=== PATIENT | female | born 1940 | race Caucasian/White ===

== ENCOUNTER 2017-06-17 04:49 | Inpatient (IN) | payer MEDICARE ==
[2017-06-17] MEDS ORDERED: IPRATROPIUM/ALBUTEROL 0.5-2.5 MG/3 ML AMPUL NEB ONE ×2 (04:58→05:27)
[2017-06-17] MEDS ORDERED: METHYLPREDNISOLONE INJ 125 MG/2 ML SDV IV ONE (04:58)
[2017-06-17] MEDS ORDERED: NORMAL SALINE 1000 ML 1,000 ML IV ONE (05:00)
--- NOTE | 2017-06-17 05:03 | ER Document Report ---
ED Respiratory Problem - General Stated Complaint: SHORTNESS OF BREATH Time Seen by Provider: 06/17/17 04:57 Notes: Patient is a 77-year-old female that comes from home for chief complaint of shortness of breath and productive cough over the past day and a half. She denies chest pain, she is unsure of fever. She states she is using her home nebulizer but it is not helping. She is taking Azithromycin and prednisone from her primary provider. Past medical history of asthma, hypertension, hyperlipidemia, type 2 diabetes on oral medication. Has not smoked since she was a teenager. TRAVEL OUTSIDE OF THE [place] IN LAST 30 DAYS: No - Related Data Allergies/Adverse Reactions: sulfamethoxazole [From Bactrim] Allergy (Severe, Verified 01/09/16 14:51) rash, "mad itch" trimethoprim [From Bactrim] Allergy (Severe, Verified 01/09/16 14:51) rash, "mad itch" Past Medical History - General Information source: Patient - Social History Smoking Status: Former Smoker Frequency of alcohol use: None Drug Abuse: None Lives with: Family Family History: Malignancy - mother - Past Medical History Cardiac Medical History: Reports: Hx Hypercholesterolemia - meds x 10 years, Hx Hypertension - meds x 50 years Denies: Hx Atrial Fibrillation, Hx Congestive Heart Failure, Hx Coronary Artery Disease, Hx Heart Attack, Hx Peripheral Vascular Disease, Hx Pulmonary Embolism, Hx Heart Murmur Pulmonary Medical History: Reports: Hx Asthma, Hx Pneumonia - no hospitalization , Hx Sleep Apnea - Dx'ed approx 5 years ago, does NOT use CPAP Denies: Hx Bronchitis, Hx COPD, Hx Respiratory Failure, Hx Tuberculosis Neurological Medical History: Denies: Hx Seizures Endocrine Medical History: Reports: Hx Diabetes Mellitus Type 2, Hx Hypothyroidism - meds since age 13 years old (3). Denies: Hx Diabetes Mellitus Type 1, Hx Graves' Disease, Hx Hyperthyroidism Renal/ Medical History: Denies: Hx End Stage Renal Disease, Hx Kidney Stones, Hx Ovarian Cysts, Hx Peritoneal Dialysis, Hx Pelvic Inflammatory Disease Malignancy Medical History: Denies: Hx Breast Cancer, Hx Cervical Cancer, Hx Leukemia, Hx Lung Cancer, Hx Ovarian Cancer GI Medical History: Denies: Hx Crohn's Disease, Hx Gastroesophageal Reflux Disease, Hx Hiatal Hernia, Hx Irritable Bowel, Hx Liver Failure, Hx Ulcer Musculoskeltal Medical History: Reports Hx Arthritis, Denies Hx Fibromyalgia, Denies Hx Muscular Dystrophy Traumatic Medical History: Reports: Hx Fractures - RT elbow & RT arm ? ulna vs radius, denies surgery Infectious Medical History: Denies: Hx HIV Past Surgical History: Reports: Hx Section - 1977, Hx Cholecystectomy - lap 2013, Hx Orthopedic Surgery - bilat knee replacement, Hx Thyroid Surgery. Denies: Hx Appendectomy, Hx Bowel Surgery, Hx Colostomy, Hx Coronary Artery Bypass Graft, Hx Gastric Bypass Surgery, Hx Herniorrhaphy, Hx Hysterectomy, Hx Mastectomy, Hx Pacemaker, Hx Tonsillectomy, Hx Tubal Ligation - Immunizations Hx Diphtheria, Pertussis, Tetanus Vaccination: Yes - 2001 Hx Pneumococcal Vaccination: 11/23/11 Review of Systems - Review of Systems Constitutional: See HPI EENT: No symptoms reported Cardiovascular: No symptoms reported Respiratory: See HPI Gastrointestinal: No symptoms reported Genitourinary: No symptoms reported Female Genitourinary: No symptoms reported Musculoskeletal: No symptoms reported Skin: No symptoms reported Hematologic/Lymphatic: No symptoms reported Neurological/Psychological: No symptoms reported Physical Exam - Vital signs Vitals: Pulse Resp BP Pulse Ox 135 H 28 H 181/111 H 91 L 06/17/17 04:58 06/17/17 04:58 06/17/17 04:58 06/17/17 04:58 Interpretation: Normal - General General appearance: Alert, Anxious In distress: Mild - regular congested cough and mild tachypnea - HEENT Head: Normocephalic, Atraumatic Eyes: Normal Pupils: PERRL - Respiratory Respiratory status: Tachypnea. No: Labored Breath sounds: Decreased air movement, Nonproductive cough, Rhonchi, Wheezing Chest palpation: Normal - Cardiovascular Rhythm: Irregularly irregular, Tachycardia Heart sounds: Normal auscultation, S1 appreciated, S2 appreciated Murmur: No - Abdominal Inspection: Normal Distension: No distension Bowel sounds: Normal Tenderness: Nontender. No: Tender, Guarding Organomegaly: No organomegaly - Back Back: Normal, Nontender - Extremities General upper extremity: Normal inspection, Nontender, Normal strength, Normal temperature General lower extremity: Normal inspection, Nontender, Normal strength, Normal temperature. No: Edema - Neurological Neuro grossly intact: Yes Cognition: Normal Orientation: AAOx4 [place] Coma Scale Eye Opening: Spontaneous Raymond Coma Scale Verbal: Oriented [place] Coma Scale Motor: Obeys Commands Raymond Coma Scale Total: 15 Speech: Normal Cranial nerves: Normal Cerebellar coordination: Normal Motor strength normal: LUE, RUE, LLE, RLE Additional motor exam normals: Equal fine sander Sensory: Normal - Psychological Associated symptoms: Normal affect, Normal mood - Skin Skin Temperature: Warm Skin Moisture: Dry Skin Color: Normal Course - Re-evaluation Re-evalutation: On initial examination patient with frequent congested cough, mild expiratory wheezes, mild tachypnea, tachycardia with irregular rate. EKG showing atrial fibrillation at rate of 113. Pulse ox 91% on room air. Patient does not recall a history of atrial fibrillation, denies any anticoagulation. Patient improving significantly after DuoNeb's, Solu-Medrol. Magnesium found to be very low at 1.2, giving magnesium for both breathing and supplementation. Patient very hypertensive, given her home medications, patient occasionally having atrial fibrillation with momentary rapid ventricular response, given Cardizem 15 mg bolus. This was discussed with Dr. Wood. Patient was also given aspirin. Will discuss for admission. 06/17/17 07:[address] King, patient will be admitted to [facility]. - Vital Signs Vital signs: Temp Pulse Resp BP Pulse Ox 97.9 F 127 H 20 203/128 H 91 L 06/17/17 05:16 06/17/17 05:16 06/17/17 06:36 06/17/17 06:36 06/17/17 06:36 - Laboratory Result Diagrams: 06/17/17 05:16 06/17/17 05:16 Laboratory results interpreted by me: 06/17/17 06/17/17 06/17/17 05:16 05:16 05:16 RDW 14.5 H Monocytes % 13.4 H VBG pH 7.46 H Glucose 149 H Magnesium 1.2 L* Direct Bilirubin 0.5 H Total Protein 8.7 H Discharge - Discharge Clinical Impression: Exacerbation of asthma, New onset atrial fibrillation, Shortness of breath Condition: Stable Disposition: ADMITTED INPATIENT Admitting Provider: Hospitalist Unit Admitted: [facility]
[2017-06-17 05:31] LABS: ABSOLUTE LYMPHOCYTES (AUTO) 1.5 10^3/uL (0.5-4.7); ABSOLUTE MONOCYTES (AUTO) 1.3 10^3/uL (0.1-1.4); ABSOLUTE NEUT (AUTO) 6.8 10^3/uL (1.7-8.2); BASOPHILS % (AUTO) 0.5 % (0-2); EOSINOPHILS % (AUTO) 0.1 % (0-6); HEMATOCRIT 41.4 % (36.0-47.0); HEMOGLOBIN 13.7 g/dL (12.0-15.5); HGB HCT DIFFERENCE -0.3; LYMPHOCYTES % (AUTO) 15.5 % (13-45); MEAN CORPUSCULAR HEMOGLOBIN 30.5 pg (27.0-33.4); MEAN CORPUSCULAR VOLUME 92 fl (80-97); MONOCYTES % (AUTO) 13.4 % (3-13); RED BLOOD COUNT 4.49 10^6/uL (3.72-5.28); RED CELL DISTRIBUTION WIDTH 14.5 % (11.5-14.0); SEGMENTED NEUTROPHILS % (AUTO) 70.5 % (42-78); WHITE BLOOD COUNT 9.6 10^3/uL (4.0-10.5)
[2017-06-17 05:32] LABS: VENOUS BLOOD BASE EXCESS 2.8 mmol/L; VENOUS BLOOD HCO3 26.6 mmol/L (20-32); VENOUS BLOOD PCO2 38.3 mmHg (35-63); VENOUS BLOOD PH 7.46 (7.30-7.42)
[2017-06-17 05:54] LABS: ALANINE AMINOTRANSFERASE 28 U/L (9-52); ALBUMIN 4.7 g/dL (3.5-5.0); ALKALINE PHOSPHATASE 80 U/L (38-126); ANION GAP 16 (5-19); ASPARTATE AMINO TRANSFERASE 36 U/L (14-36); BILIRUBIN,DIRECT 0.5 mg/dL (0.0-0.4); BILIRUBIN,TOTAL 0.7 mg/dL (0.2-1.3); BLOOD UREA NITROGEN 15 mg/dL (7-20); CALCIUM 9.8 mg/dL (8.4-10.2); CARBON DIOXIDE 27 mmol/L (22-30); CHLORIDE 101 mmol/L (98-107); CREATINE KINASE 103 U/L (30-135); CREATININE RESULT 0.72 mg/dL (0.52-1.25); GLUCOSE 149 mg/dL (75-110); POTASSIUM 3.9 mmol/L (3.6-5.0); SODIUM 144.4 mmol/L (137-145); TOTAL PROTEIN 8.7 g/dL (6.3-8.2)
[2017-06-17] MEDS ORDERED: LISINOPRIL 10 MG TABLET PO ONE (06:04)
[2017-06-17] MEDS ORDERED: CARVEDILOL 12.5 MG TABLET PO ONE (06:04)
[2017-06-17 06:05] LABS: CREATINE KINASE MB 2.06 ng/mL (<4.55); TROPONIN I 0.021 ng/mL
--- NOTE | 2017-06-17 06:05 | RADIOLOGY REPORT (SQ) ---
EXAM DESCRIPTION: CHEST SINGLE VIEW COMPLETED DATE/TIME: 06/17/2017 5:44 am REASON FOR STUDY: cough, shortness of breath COMPARISON: 11/30/2015. EXAM PARAMETERS: NUMBER OF VIEWS: One view. TECHNIQUE: Single frontal radiographic view of the chest acquired. RADIATION DOSE: NA LIMITATIONS: None. FINDINGS: LUNGS AND PLEURA: No opacities, masses or pneumothorax. No pleural effusion. MEDIASTINUM AND HILAR STRUCTURES: No masses. Contour normal. HEART AND VASCULAR STRUCTURES: Heart normal in size. Normal vasculature. BONES: Moderate osteoarthritis of bilateral glenohumeral joints. Moderate deformity of the left tuan ral head. HARDWARE: None in the chest. OTHER: No other significant finding. IMPRESSION: No acute cardiopulmonary findings. TECHNICAL DOCUMENTATION: JOB ID: [id number]
[2017-06-17 06:10] LABS: MAGNESIUM 1.2 mg/dL (1.6-2.3)
[2017-06-17] MEDS ORDERED: MAGNESIUM SULFATE/D5W 100 ML IV PRN (06:10)
[2017-06-17] MEDS ORDERED: ASPIRIN 81 MG TABLET, CHEWABLE PO ONE (06:41)
[2017-06-17] MEDS ORDERED: DILTIAZEM HCL INJ 25 MG/5 ML VIAL IV ONE (06:41)
[2017-06-17] MEDS: LEVALBUTEROL HCL NEB 0.63 MG/3 ML AMPUL NEB PRN ×2 (09:13→15:40)
[2017-06-17] MEDS ORDERED: DEXTROSE 40% GEL 15 GM TUBE PO PRN ×2 (09:22)
[2017-06-17] MEDS ORDERED: GLUCAGON,HUMAN RECOMB 1 MG INJ IM PRN (09:22)
[2017-06-17] MEDS ORDERED: DEXTROSE 50%-WATER 25 GM/50 ML DISP.SYRIN IV PRN ×2 (09:22)
[2017-06-17] MEDS ORDERED: (PENDING PHARMACY ID) (Ondansetron Hcl [Zofran 4 Mg Tablet] 4 MG) PO PRN (09:23)
[2017-06-17] MEDS ORDERED: ONDANSETRON 4 MG TAB.RAPDIS PO PRN (09:35)
--- NOTE | 2017-06-17 10:24 | HISTORY AND PHYSICAL E ---
History and Physical NAME: JASMIN CONWAY : 1940 AGE: 77Y ADMITTED: 06/17/2017 ROOM: ED02 PRIMARY CARE PROVIDER: Sweta Sellers. CHIEF COMPLAINT: Shortness of breath. HISTORY OF PRESENT ILLNESS: The patient is a 77-year-old female with a past medical history of diabetes mellitus type 2. The patient presented to the emergency department with a chief complaint of shortness of breath. According to the patient, her symptoms have been gradually increasing over the week to include wheezing and shortness of breath. The patient contacted her primary care provider's office and instructions to the patient were to come to the emergency department for evaluation. Upon presentation to the emergency department the patient was found to have a magnesium of 1.2. She was noted to be tachypneic with a heart rate of 28, oxygen saturations of 89% and a heart rate of 135 and EKG rhythm strip suggestive of atrial fibrillation. The patient's magnesium was replaced and the patient's heart rate improved with a bolus of saline. The patient was also given 1 IV dose of Cardizem; however, due to the patient's wheezing, she received a total of 6 mL of DuoNeb as well as Solu-Medrol. Her magnesium was replaced and she was referred to the hospitalist for admission and management. Upon further questioning of the patient, she states she has had an irregular heartbeat in the past. The patient states that the words atrial fibrillation may ring a block. She has seen 2 cardi[place] Dr. Barraza and Dr. Harrison; however, she says she has not been seen by them in years. The patient denies being on blood thinners or any medications for her irregular heartbeat. PAST MEDICAL HISTORY: 1. Diabetes mellitus type 2. 2. Obesity with a BMI of 38. 3. Asthma. 4. Hypothyroidism. 5. B12 and iron deficiency anemia. PAST SURGICAL HISTORY: 1. Bilateral knee replacement. 2. Right hip replacement. 3. Cholecystectomy. 4. . 5. Goiter removal. ALLERGIES: BACTRIM. HOME MEDICATIONS: 1. Pro-Air 2 puffs inhalation q.4 h. p.r.n. 2. Coreg 12.5 mg p.o. q.12 h. 3. Vitamin B12 subcutaneous injections every 4 weeks. 4. Iron 325 mg p.o. daily. 5. DuoNeb 1 neb q.6 h. p.r.n. 6. Synthroid 200 mcg p.o. daily. 7. Lisinopril 10 mg p.o. daily. 8. Ativan 0.5 mg p.o. q. hour of sleep. 9. Glucophage 1000 mg p.o. b.i.d. 10. Zofran 4 mg p.o. q.4 h. p.r.n. 11. Diprivan 5 mg p.o. q. hour of sleep. 12. Prednisone 10 mg p.o. daily. 13. Ultram 50 mg p.o. q.6 h. p.r.n. SOCIAL HISTORY: The patient currently resides at home. She is . The patient's surrogate decision maker is her daughter, Scarlett Conway, who can be reached at [phone]. The patient does reside with this daughter. The patient denies any significant history of tobacco use, stating that she smoked some as a teenager but was never a habitual smoker. The patient denies any alcohol abuse or illicit drug use. FAMILY MEDICAL HISTORY: The patient's mother is from some sort of heart problem. The patient's father is of lung cancer. The patient does have a brother who has heart problems. The patient has 1 daughter with rheumatoid arthritis and her youngest daughter has battled breast cancer. REVIEW OF SYSTEMS: CONSTITUTIONAL: The patient denies any fevers, dizziness or loss of appetite. Does admit to chills and weakness. INTEGUMENTARY: The patient denies any diaphoresis, rash, or bruising or itching. HEENT: Denies any vision or hearing loss, nasal drainage, sore throat, or headache. CARDIOVASCULAR: Denies any chest pain, edema, or heart palpitations. Does admit to persistent shortness of breath. RESPIRATORY: Denies any cough or sputum production, no hemoptysis. GASTROINTESTINAL: Denies any nausea or vomiting but does admit to dry heaves. No diarrhea, abdominal pain, bloating, hematemesis, constipation, melena, hematochezia. GENITOURINARY: Denies any hematuria, pyuria or dysuria. MUSCULOSKELETAL: Denies any acute or chronic joint pains. NEUROLOGIC: No seizures, tremors or loss of consciousness. HEMATOLOGICAL: Denies any adelfo bleeding or easy bruising. ENDOCRINE: Denies any recent weight changes or abnormal glucoses. PSYCHIATRIC: Denies suicidal or homicidal ideation. The rest of the review of the other organ systems is negative. PHYSICAL EXAMINATION: GENERAL: On examination, the patient is a well-developed, obese, 77-year-old female who is awake, alert and oriented to person, place, time and situation. She is verbal and conversational, ambulatory and does not appear to be in any acute distress. VITAL SIGNS: Temperature 97.9, pulse 95, respirations 17, blood pressure 157/95, oxygen saturation is 93% on 2 L nasal cannula. SKIN: Warm and dry. No rash. She is not diaphoretic. HEENT: Pupils are equal, round, and reactive to light and accommodation. Conjunctivae is pink. There are no mouth lesions. Sclerae are not icteric. Tongue is midline. NECK: Supple. No JVD. No palpable lymphadenopathy or thyromegaly. CARDIOVASCULAR: Heart is irregularly irregular. There is no murmur or rub. CHEST: The patient does have expiratory wheezes noted throughout both lung lopez, symmetrical and unlabored. ABDOMEN: Soft, nontender, nondistended. Bowel sounds are present. No palpable organomegaly. BACK: No CVA tenderness or sacral edema. EXTREMITIES: No clubbing, cyanosis or edema or peripheral signs of embolization. There are +2 pedal pulses are noted bilaterally. PSYCHIATRIC: Appropriate affect. Pleasant mood. NEUROLOGIC: Cranial nerves II-XII are grossly intact. DIAGNOSTICS: Labs are as follows: Hematology obtained on 06/17/2017: WBC 9.6, hemoglobin 13.7, hematocrit 41.4, platelet count is 206,000. Venous blood gas obtained on 06/17/2017: pH is 7.46, PCO2 is 38.3, bicarb is 26.6. Chemistry obtained on 06/17/2017: Sodium 133, potassium 3.9, chloride 101, carbon dioxide 27, BUN 15, creatinine 0.72, glucose 149, lactic acid is 1.6, calcium 9.8, magnesium is 1.2, bilirubin 0.7, AST 36, ALT 38, alk phos 80, CK 103, CK-MB 2.06, troponin is 0.021, total protein 8.7, albumin 4.6, TSH is 2.47. Blood cultures obtained on 06/17/2017 are pending. Chest x-ray obtained on 06/17/2017 reveals no acute cardiopulmonary findings. IMPRESSION AND PLAN: 1. Acute asthma exacerbation. Will resume the patient's home controlled medications as well as schedule steroids and follow. 2. [id number] hypoxemic respiratory failure. This is secondary to the above. The patient is not O2 dependent at home. Will once again schedule steroids, Singulair, and provide supplemental O2 and follow. 3. Atrial fibrillation. This was initially thought to be new onset; however, the patient gives a history that is consistent with a-fib in the past. Dr. Witt with cardiology has been consulted. The patient is currently rate controlled. Will follow. 4. Diabetes mellitus type 2. Will resume the patient's home medications and add sliding scale coverage. 5. Hypomagnesemia. Will replete this and repeat magnesium this afternoon. 6. DVT PROPHYLAXIS. The patient will be anticoagulated. DISPOSITION: The patient is a DO NOT RESUSCITATE/DO NOT INTUBATE. This was discussed in detail with the patient and she has elected for a natural . Pending patient's symptomatology and diagnostic findings, will evaluate in the a.m. Will admit the patient to inpatient IMCU, as the patient's expected length of stay will surpass 2 midnights. Time spent on this admission including assessment, plan, physical examination, patient education, specialty collaboration and research of previous records is 50 minutes. DICTATING PHYSICIAN: BENI VARGAS NP [id number] PHY#: [id number] ID: [id number] JOB#: [id number] ACCT: [id number] cc:BENI VARGAS NP >
[2017-06-17] MEDS: LISINOPRIL 10 MG TABLET PO SCH (10:30)
[2017-06-17] MEDS: LEVOTHYROXINE SODIUM 0.1 MG TABLET PO SCH (10:30)
[2017-06-17] MEDS: CARVEDILOL 12.5 MG TABLET PO SCH ×2 (10:31→21:41)
[2017-06-17] MEDS: INSULIN LISPRO 100 UNIT/ML 3 ML VIAL SUBCUT PRN ×2 (11:15→21:46)
--- NOTE | 2017-06-17 12:29 | PDOC CONSULTATION ---
Consultation Consult Date: 06/17/17 Attending physician:: AYDIN KIRAN Consult reason:: Atrial fibrillation History of Present Illness Admission Date/PCP: 06/17/17 08:31 NEGRITA MAI DO Patient complains of: Shortness of breath History of Present Illness: Patient is a 77-year-old female that comes from home for chief complaint of shortness of breath and productive cough over the past day and a half. She denies chest pain, she is unsure of fever. She states she is using her home nebulizer but it is not helping. She is taking Azithromycin and prednisone from her primary provider. Past medical history of asthma, hypertension, hyperlipidemia, type 2 diabetes on oral medication. Has not smoked since she was a teenager. Patient denied any prior history of definitive heart problems, atrial fibrillation, CHF, but there is a questionable history of myocardial infarction many years ago but no interventions were performed. Patient does give history of chronic asthma. Patient surrogate decision-maker is her daughter. This history was reviewed, supplemented and confirmed. Patient was noted to be in atrial fibrillation with rapid ventricular response. Past Medical History Cardiac Medical History: Reports: Hyperlipidema - meds x 10 years, Hypertension - meds x 50 years Denies: Atrial Fibrillation, Congestive Heart Failure, Coronary Artery Disease, Myocardial Infarction, Peripheral Vascular Disease, Pulmonary Embolism , Heart Murmur Pulmonary Medical History: Reports: Asthma, Pneumonia - no hospitalization, Sleep Apnea - Dx'ed approx 5 years ago, does NOT use CPAP Denies: Bronchitis, Chronic Obstructive Pulmonary Disease (COPD), Respiratory Failure, Tuberculosis Neurological Medical History: Denies: Seizures Endocrine Medical History: Reports: Diabetes Mellitus Type 2, Hypothyroidism - meds since age 13 years old (3) Denies: Diabetes Mellitus Type 1, Hyperthyroidism Renal/ Medical History: Denies: End Stage Renal Disease Malignancy Medical History: Denies: Breast Cancer, Cervical Cancer, Leukemia, Lung Cancer, Ovarian Cancer GI Medical History: Denies: Crohn's Disease, Gastroesophageal Reflux Disease, Hiatal Hernia Musculoskeltal Medical History: Reports: Arthritis Denies: Fibromyalgia Hematology: Reports: Anemia - occ Denies: Hemophilia, Sickle Cell Disease Infectious Medical History: Denies: HIV Past Surgical History Past Surgical History: Reports: Section - 1977, Cholecystectomy - lap 2013, Orthopedic Surgery - bilat knee replacement Denies: Amputation, Appendectomy, Colostomy, Coronary Artery Bypass Graft, Gastric Bypass Surgery, Herniorrhaphy, Hysterectomy, Mastectomy, Pacemaker, Tonsillectomy, Tubal Ligation Social History Information Source: Patient Lives with: Family Smoking Status: Former Smoker Frequency of Alcohol Use: Rare Hx Recreational Drug Use: No Hx Prescription Drug Abuse: No - Advance Directive Resuscitation Status: Do Not Resuscitate Surrogate healthcare decision maker:: Patient's daughter is the surrogate decision-maker. Family History Family History: Malignancy - mother Parental Family History Reviewed: Yes Children Family History Reviewed: Yes Sibling(s) Family History Reviewed.: Yes - Negative for premature coronary artery disease or sudden cardiac in the family amongst first degree relatives. Medication/Allergy Home Medications: Albuterol Sulfate [Proair HFA] 2 puff IH Q4HP PRN 06/17/17 Azithromycin [Zithromax] 250 mg PO DAILY 06/17/17 Carvedilol [Coreg 12.5 mg Tablet] 12.5 mg PO Q12 06/17/17 Cyanocobalamin (Vitamin B-12) [Vitamin B-12 Inj 1000 Mcg/1 ml Vial] 1,000 mcg SUBCUT [id number] 06/17/17 Ferrous Sulfate [Feosol 325 mg Tablet] 325 mg PO DAILY 06/17/17 Ipratropium/Albuterol Sulfate [Duoneb 3 ml Ampul] 3 ml NEB Q6HP PRN 06/17/17 Levothyroxine Sodium [Synthroid] 200 mcg PO QAM 06/17/17 Lisinopril [Prinivil 10 mg Tablet] 10 mg PO DAILY 06/17/17 Lorazepam [Ativan 0.5 mg Tablet] 0.5 mg PO QHS 06/17/17 Metformin HCl [Glucophage] 1,000 mg PO BIDACBS 06/17/17 Ondansetron HCl [Zofran 4 mg Tablet] 4 mg PO Q4HP PRN 06/17/17 Oxybutynin Chloride [Ditropan 5 mg Tablet] 5 mg PO QHS 06/17/17 Prednisone [Deltasone 10 mg Tablet] 10 mg PO MEALS 06/17/17 Tramadol HCl [Ultram 50 mg Tablet] 50 mg PO Q6HP PRN 06/17/17 Allergies/Adverse Reactions: sulfamethoxazole [From Bactrim] Allergy (Severe, Verified 01/09/16 14:51) rash, "mad itch" trimethoprim [From Bactrim] Allergy (Severe, Verified 01/09/16 14:51) rash, "mad itch" Review of Systems Review of Systems: Please see history of present illness and past medical history as wall. Constitutional: No fever or chills reported. Head : No recent chronic headaches, recent head injury. Eyes: No recent eye pain, diplopia, redness, discharge, acute visual changes. Ears: No recent chronic ear pain, acute hearing loss, ear discharge. Oral cavity: No recent ulcerations, bleeding, oral cavity discomfort. Neck: No recent acute neck pain reported. Hematologic: No recent easy bruising or bleeding or hematologic malignancy reported. Lymphatic: No recent lymphatic malignancy, chronic lymphadenopathy reported yet Cardiovascular system review: See history of present illness. Respiratory system review: Recent cough and wheezing but no hemoptysis, blood clots in the lungs reported. Mild Shortness of breath on exertion Gastrointestinal system review: Negative for any recent acute or chronic abdominal pain, hematemesis, melena, recent change in bowel habits. Genitourinary system review: No recent acute or chronic hematuria, flank pain, UTI etc. reported. Skin system review: Negative for any recent abnormal bruising, no rash, no pruritus reported. Neurologic: No prior history of strokes, mini strokes, seizure disorder. Psychologic: No history of major psychosis or major depression reported. Musculoskeletal: Minor aches and pains reported. No acute joint swelling reported. Endocrine: No recent polyuria, polydipsia, recent heat or cold intolerance. Physical Exam Vital Signs: Temp Pulse Resp BP Pulse Ox 99.7 F 90 18 161/84 H 92 06/17/17 10:00 06/17/17 10:01 06/17/17 10:00 06/17/17 10:00 06/17/17 10:00 Intake & Output 06/16/17 06/17/17 06/18/17 06:59 06:59 06:59 Output Total 700 Balance -700 Weight 97 kg Exam: GENERAL: well-nourished and in no acute distress. Alert and oriented x3 HEAD: Atraumatic, normocephalic. EYES: Pupils equal round and reactive to light, extraocular movements intact, sclera anicteric, conjunctiva are normal. ENT: TMs normal, nares patent, oropharynx clear without exudates. Moist mucous membranes. No oral ulcerations or bleeding gums noted NECK: supple without lymphadenopathy. Trachea is central. No cervical or axillary lymphadenopathy noted. Carotids are 2+, JVD WNL LUNGS: Respiration seems nonlabored, no significant accessory muscle action noted. Mild bilateral wheezing noted. No dullness noted. CHEST: Palpation of the chest wall shows no significant chest wall tenderness. No other significant abnormalities noted. 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 ABDOMEN: Soft, no significant tenderness appreciated, normoactive bowel sounds. No guarding, no rebound. No rigidity noted . No masses appreciated. EXTREMITIES: Pedal pulses are 1-2+, no calf tenderness noted. No clubbing or cyanosis.trace to 1+ pedal edema noted NEUROLOGICAL: Focused neurological exam showed no significant neurologic deficit. Normal speech, no focal weakness appreciated. PSYCH: Normal mood, normal affect. Judgment and insight within normal limits. SKIN: No significant ecchymosis, rash, ulcerations or signs of pruritus noted. MUSCULOSKELETAL EXAM: No significant joint swelling noted. Results EKG Comments: Atrial fibrillation with rapid ventricular response. No acute ST-T wave changes noted Impressions: Chest X-Ray 06/17/17 04:58 IMPRESSION: No acute cardiopulmonary findings. Assessment & Plan - Diagnosis (1) Atrial fibrillation Qualifiers: Atrial fibrillation type: unspecified Qualified Code(s): I48.91 - Unspecified atrial fibrillation Is this a current diagnosis for this admission?: Yes (2) Hypertension Qualifiers: Hypertension type: essential hypertension Qualified Code(s): I10 - Essential (primary) hypertension Is this a current diagnosis for this admission?: Yes (3) Asthma exacerbation Is this a current diagnosis for this admission?: Yes (4) Diabetes Qualifiers: Diabetes mellitus type: type 2 Diabetes mellitus complication status: with unspecified complications 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 mellitus 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 terminal 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 insulin use: unspecified ferry terminal agent insulin use status Qualified Code(s): E11.8 - Type 2 diabetes mellitus with unspecified complications; Z79.4 - correction (current) use of insulin Is this a current diagnosis for this admission?: Yes (5) GERD (gastroesophageal reflux disease) Qualifiers: Esophagitis presence: esophagitis presence not specified Qualified Code(s): K21.9 - Gastro-esophageal reflux disease without esophagitis Is this a current diagnosis for this admission?: Yes (6) Hypomagnesemia Is this a current diagnosis for this admission?: Yes (7) Hypothyroidism Qualifiers: Hypothyroidism type: unspecified Qualified Code(s): E03.9 - Hypothyroidism, unspecified Is this a current diagnosis for this admission?: Yes (8) Obesity (BMI 30-39.9) Is this a current diagnosis for this admission?: Yes - Notes Notes: Atrial fibrillation: Last EKG showing normal sinus rhythm is from September 2015. Exact duration not known. At this point will recommend chronic anticoagulation and rate control. After 1 month of chronic anticoagulation, cardioversion could be considered if patient remains significantly symptomatic. Hypertension: Patient was noted to have severe hypertension on presentation. Now blood pressure under reasonable control. Continue current antihypertensive regimen. Asthma exacerbation: Continue steroids and bronchodilator therapy. Diabetes: Recommend good control of blood sugar. However should avoid any hypoglycemia. Patient being expertly managed by primary care M.D. Gastroesophageal reflux disease: Continue proton pump inhibitor. Hypomagnesemia: Have started replacement by IV magnesium. Hypothyroidism: Continue current replacement therapy. Obesity: Patient would benefit from sleep study as an outpatient as untreated sleep apnea does increase the risk of recurrent atrial fibrillation. - Time Time Spent: 30 to 50 Minutes - CODE STATUS was discussed, patient remains full code. Surrogate decision-maker patient's daughter. Multiple medical problems were addressed. More than 50% of the time spent coordinating care, discussing management plans with involved caregivers. Management plans discussed with involved personnels. Medical decision making was of moderate to high complexity , patient's has multiple comorbidities. Medications reviewed and adjusted accordingly: Yes
[2017-06-17] MEDS ORDERED: MAGNESIUM SULFATE/D5W 100 ML IV SCH (13:00)
[2017-06-17] MEDS: METHYLPREDNISOLONE INJ 125 MG/2 ML SDV IV SCH ×2 (13:57→21:44)
[2017-06-17] MEDS: METFORMIN HCL 500 MG TABLET PO SCH (16:19)
--- NOTE | 2017-06-17 16:25 | EKG REPORT ---
SEVERITY:- ABNORMAL ECG - ATRIAL FIBRILLATION LEFT ANTERIOR FASCICULAR BLOCK PROBABLE LVH WITH SECONDARY REPOL ABNRM ANTERIOR Q WAVES, POSSIBLY DUE TO LVH BORDERLINE PROLONGED QT INTERVAL : Confirmed by: Deanna White MD 17-Jun-2017 16:23:35
[2017-06-17] MEDS: APIXABAN 5 MG TABLET PO SCH (17:13)
[2017-06-17] MEDS ORDERED: APIXABAN 2.5 MG TABLET PO SCH (18:00)
[2017-06-17] MEDS: TRAMADOL HCL 50 MG TABLET PO PRN (21:40)
[2017-06-17] MEDS: LORAZEPAM 0.5 MG TABLET PO SCH (21:43)
[2017-06-17] MEDS: OXYBUTYNIN CHLORIDE 5 MG TABLET PO SCH (21:43)
[2017-06-18 04:18] LABS: ALANINE AMINOTRANSFERASE 28 U/L (9-52); ALBUMIN 3.7 g/dL (3.5-5.0); ALKALINE PHOSPHATASE 62 U/L (38-126); ANION GAP 14 (5-19); ASPARTATE AMINO TRANSFERASE 26 U/L (14-36); BILIRUBIN,DIRECT 0.4 mg/dL (0.0-0.4); BILIRUBIN,TOTAL 0.5 mg/dL (0.2-1.3); BLOOD UREA NITROGEN 28 mg/dL (7-20); CALCIUM 8.6 mg/dL (8.4-10.2); CARBON DIOXIDE 26 mmol/L (22-30); CHLORIDE 101 mmol/L (98-107); CREATININE RESULT 0.97 mg/dL (0.52-1.25); GLUCOSE 191 mg/dL (75-110); MAGNESIUM 1.6 mg/dL (1.6-2.3); POTASSIUM 3.8 mmol/L (3.6-5.0); SODIUM 140.5 mmol/L (137-145)
[2017-06-18] MEDS: METHYLPREDNISOLONE INJ 125 MG/2 ML SDV IV SCH (05:27)
[2017-06-18] MEDS: INSULIN LISPRO 100 UNIT/ML 3 ML VIAL SUBCUT PRN ×2 (05:27→08:23)
[2017-06-18] MEDS: CARVEDILOL 12.5 MG TABLET PO SCH ×2 (07:37→21:13)
[2017-06-18] MEDS: LEVOTHYROXINE SODIUM 0.1 MG TABLET PO SCH (07:37)
[2017-06-18] MEDS: METFORMIN HCL 500 MG TABLET PO SCH ×2 (07:40→17:35)
[2017-06-18] MEDS: LISINOPRIL 10 MG TABLET PO SCH ×2 (07:40→21:12)
[2017-06-18] MEDS: APIXABAN 5 MG TABLET PO SCH ×2 (08:22→17:33)
--- NOTE | 2017-06-18 09:15 | XCELERA REPORT ---
[address] [address] Transthoracic Echocardiogram Report Name: JASMIN CONWAY Age: 77 yrs Gender: Female : 1940 Patient Status: Inpatient Patient Location: ICU\S\609\S\A Study Date: 06/17/2017 02:33 PM Height: 62 in Weight: 213 lb BSA: 2.0 m2 Procedure: A complete two-dimensional transthoracic echocardiogram was performed (2D, M-mode, spectral and color flow Doppler). The study was technically difficult with many images being suboptimal in quality. Reason For Study: A FIB Ordering Physician: KAYLEEN CULVER Performed By: Angelina Norton Interpretation Summary The left ventricular ejection fraction is normal. There is mild concentric left ventricular hypertrophy. The left ventricle is grossly normal size. Wall motion cannot be accurately commented on, but no definite regional wall motion abnormalities noted. LV diastolic function could not be adequately assessed due to atrial fibrilation. The right ventricular systolic function is normal. The right atrium is normal in size The left atrium is mildly dilated. There is a trace amount of mitral regurgitation There is no mitral valve stenosis. No aortic regurgitation is present. There is no aortic valve stenosis There is a trace or physiologic amount of tricuspid regurgitation Tricuspid regurgitation jet envelope not well defined to measure RV systolic pressure accurately. There is no pericardial effusion. MMode/2D Measurements \T\ Calculations RVDd: 3.5 cm LVIDd: 4.5 cm FS: 38.1 % Ao root diam: 3.5 cm IVSd: 1.1 cm LVIDs: 2.8 cm EDV(Teich): 90.7 ml LVPWd: 1.1 cm ESV(Teich): 28.6 ml Ao root area: 9.5 cm2 EF(Teich): 68.5 % LA dimension: 3.8 cm Doppler Measurements \T\ Calculations MV E max marietta: MV P1/2t max marietta: Ao V2 max: LV V1 max P.9 cm/sec 86.4 cm/sec 130.3 cm/sec 3.0 mmHg MV P1/2t: 66.1 msec Ao max PG: LV V1 max: 6.8 mmHg 86.4 cm/sec MVA(P1/2t): 3.3 cm2 MV dec slope: 382.7 cm/sec2 MV dec time: 0.20 sec PA V2 max: TR max marietta: 114.5 cm/sec 179.2 cm/sec PA max PG: TR max P.8 mmHg 5.2 mmHg Left Ventricle The left ventricle is grossly normal size. There is mild concentric left ventricular hypertrophy. The left ventricular ejection fraction is normal. LV diastolic function could not be adequately assessed due to atrial fibrilation. Wall motion cannot be accurately commented on, but no definite regional wall motion abnormalities noted. Right Ventricle The right ventricle is grossly normal size. There is normal right ventricular wall thickness. The right ventricular systolic function is normal. Atria The right atrium is normal in size. The left atrium is mildly dilated. Interarterial septum not well visualized and not well dopplered. Cannot comment on ASD/PFO presence. Mitral Valve The mitral valve leaflets are sclerotic, but show no functional abnormalities. There is no mitral valve stenosis. There is a trace amount of mitral regurgitation. Aortic Valve The aortic valve is grossly normal. There is no aortic valve stenosis. No aortic regurgitation is present. Tricuspid Valve The tricuspid valve is not well visualized, but is grossly normal. There is no tricuspid stenosis. There is a trace or physiologic amount of tricuspid regurgitation. Tricuspid regurgitation jet envelope not well defined to measure RV systolic pressure accurately. Pulmonic Valve The pulmonic valve is not well visualized. Great Vessels The aortic root is not well visualized but is probably normal size. The inferior vena cava appeared normal and decreased > 50% with respiration (RAP 5-10 mmHg). Effusions There is no pericardial effusion. : KAYLEEN CULVER > Kayleen Culver
[2017-06-18] MEDS ORDERED: LACTOBACILLUS ACIDOPHILUS 250 MG TAB PO ONE (11:00)
[2017-06-18] MEDS ORDERED: LISINOPRIL 10 MG TABLET PO ONE (11:00)
[2017-06-18] MEDS ORDERED: CARVEDILOL 12.5 MG TABLET PO ONE (11:00)
--- NOTE | 2017-06-18 12:02 | PDOC PROGRESS REPORT ---
Subjective Progress Note for:: 06/18/17 Subjective:: Patient seems to be doing better with gradual improvement. Pt is denying any chest arm or neck discomfort. Patient denying any PND, orthopnea. Patient denied any sustained palpitations, dizziness, syncope, near syncope. Patient denying any fever chills. Patient denying any other significant discomfort. Patient is maintaining sustained atrial fibrillation. Review of systems: Rest review of systems negative. Medications: Medications have been reviewed. Physical Exam Vital Signs: Temp Pulse Resp BP Pulse Ox 97.9 F 90 27 H 184/97 H 97 06/18/17 08:00 06/18/17 08:00 06/18/17 08:00 06/18/17 08:00 06/18/17 08:00 Intake & Output 06/17/17 06/18/17 06/19/17 06:59 06:59 06:59 Intake Total 500 Output Total 1060 Balance -560 Weight 94.9 kg Exam: GENERAL: well-nourished and in no acute distress. Alert and oriented x3 HEAD: Atraumatic, normocephalic. EYES: Pupils equal round and reactive to light, extraocular movements intact, sclera anicteric, conjunctiva are normal. ENT: TMs normal, nares patent, oropharynx clear without exudates. Moist mucous membranes. No oral ulcerations or bleeding gums noted NECK: supple without lymphadenopathy. Trachea is central. No cervical or axillary lymphadenopathy noted. Carotids are 2+, JVD WNL LUNGS: Respiration seems nonlabored, no significant accessory muscle action noted. Few bilateral wheezing noted. No dullness noted CHEST: Palpation of the chest wall shows no significant chest wall tenderness. No other significant abnormalities noted. 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 ABDOMEN: Soft, no significant tenderness appreciated, normoactive bowel sounds. No guarding, no rebound. No rigidity noted . No masses appreciated. EXTREMITIES: Pedal pulses are 1-2+, no calf tenderness noted. No clubbing or cyanosis.trace to 1+ pedal edema noted NEUROLOGICAL: Focused neurological exam showed no significant neurologic deficit. Normal speech, no focal weakness appreciated. PSYCH: Normal mood, normal affect. Judgment and insight within normal limits. SKIN: No significant ecchymosis, rash, ulcerations or signs of pruritus noted. MUSCULOSKELETAL EXAM: No significant joint swelling noted. Results Laboratory Results: 06/18/17 03:47 06/17/17 06/18/17 13:00 03:47 Sodium 140.5 Potassium 3.8 Chloride 101 Carbon Dioxide 26 Anion Gap 14 BUN 28 H Creatinine 0.97 Est GFR ( Amer) > 60 Est GFR (Non-Af Amer) 56 L Glucose 191 H Calcium 8.6 Magnesium 1.7 1.6 Total Bilirubin 0.5 AST 26 ALT 28 Alkaline Phosphatase 62 Total Protein 7.0 Albumin 3.7 EKG Comments: Telemetry strips reviewed showed atrial fibrillation with controlled ventricular response. Impressions: Chest X-Ray 06/17/17 04:58 IMPRESSION: No acute cardiopulmonary findings. Assessment & Plan - Diagnosis (1) Atrial fibrillation Qualifiers: Atrial fibrillation type: unspecified Qualified Code(s): I48.91 - Unspecified atrial fibrillation Is this a current diagnosis for this admission?: Yes (2) Hypertension Qualifiers: Hypertension type: essential hypertension Qualified Code(s): I10 - Essential (primary) hypertension Is this a current diagnosis for this admission?: Yes (3) Asthma exacerbation Is this a current diagnosis for this admission?: Yes (4) Diabetes Qualifiers: Diabetes mellitus type: type 2 Diabetes mellitus complication status: with unspecified complications Diabetes mellitus nursing home insulin use: unspecified nursing home insulin use status Qualified Code(s): E11.8 - Type 2 diabetes mellitus with unspecified complications; Z79.4 - intermediate (current) use of insulin Is this a current diagnosis for this admission?: Yes (5) GERD (gastroesophageal reflux disease) Qualifiers: Esophagitis presence: esophagitis presence not specified Qualified Code(s): K21.9 - Gastro-esophageal reflux disease without esophagitis Is this a current diagnosis for this admission?: Yes (6) Hypomagnesemia Is this a current diagnosis for this admission?: Yes (7) Hypothyroidism Qualifiers: Hypothyroidism type: unspecified Qualified Code(s): E03.9 - Hypothyroidism, unspecified Is this a current diagnosis for this admission?: Yes (8) Obesity (BMI 30-39.9) Is this a current diagnosis for this admission?: Yes - Notes Notes: 2D echo results reviewed. Showed normal LVEF, no significant valvular abnormalities noted. Chronic anticoagulation and increased stroke risk/benefit associated with atrial fibrillation discussed. Atrial fibrillation: Currently persistent. Last EKG showing normal sinus rhythm is from September 2015. Exact duration not known. On questioning patient did admit to having irregular heartbeat in the past. At this point will recommend chronic anticoagulation and rate control. After 1 month of chronic anticoagulation, cardioversion could be considered if patient remains significantly symptomatic. Hypertension: Patient was noted to have severe hypertension on presentation. Now blood pressure under reasonable control. Continue current antihypertensive regimen. Asthma exacerbation: Continue steroids and bronchodilator therapy. Diabetes: Recommend good control of blood sugar. However should avoid any hypoglycemia. Patient being expertly managed by primary care MSteve. Gastroesophageal reflux disease: Continue proton pump inhibitor. Hypomagnesemia: Yesterday had ordered replacement by IV magnesium. Magnesium normal today. Continue to follow. Hypothyroidism: Continue current replacement therapy. Obesity: Patient would benefit from sleep study as an outpatient as untreated sleep apnea does increase the risk of recurrent atrial fibrillation. - Time Time with patient: Greater than 35 minutes - 2D echo results discussed. Patient questions answered. CODE STATUS : was discussed, patient remains DO NOT RESUSCITATE. Surrogate decision-maker unchanged. Multiple medical problems were addressed. More than 50% of the time spent coordinating care, discussing management plans with involved caregivers. Management plans discussed with involved personnels. Medical decision making was of moderate to high complexity, patient's has multiple comorbidities.
--- NOTE | 2017-06-18 12:24 | PROGRESS NOTE E ---
Progress Note NAME: JASMIN CONWAY : 1940 AGE: 77Y DATE: 06/18/2017 ROOM: 330 SUBJECTIVE: The patient is currently sitting on the side of the bed. She states that she feels overall better today in comparison to yesterday. The patient, however, has developed diarrhea. The patient apparently had diarrhea earlier in the year and was uncertain of the exact etiology of this, but it did spontaneously resolve. The patient has been afebrile. Her blood pressure has been in a good range. Her heart rate has been controlled, and the patient does not voice any other concerns at this time. REVIEW OF SYSTEMS: Rest of review of systems negative. MEDICATIONS: Medications have been reviewed. OBJECTIVE: GENERAL: The patient is a 77-year-old female who is awake, alert, and oriented to person, place, time, and situation. She is verbal, conversational, does not appear to be in acute distress. VITAL SIGNS: Temperature is 97.9, pulse 90, respirations 24, blood pressure is 147/98, oxygen saturation is 95% on room air. SKIN: Warm and dry. No rash. She is not diaphoretic. HEENT: Pupils equal, round, and reactive to light and accommodation. Conjunctivae pink. No JVP. CARDIOVASCULAR SYSTEM: Heart is irregularly irregular. There is no murmur or rub. CHEST: Clear, symmetrical, unlabored, but diminished. ABDOMEN: Soft, nontender, nondistended. GENITOURINARY: Odom is draining clear yellow urine. EXTREMITIES: No clubbing, cyanosis, edema. DIAGNOSTICS: Lab values are as follows: Hematology obtained on 06/17/2017: WBCs are 9.6, hemoglobin is 13.7, hematocrit is 41.4, platelet count is 206,000. Chemistry obtained on 06/18/2017: Sodium is 140, potassium is 3.8, chloride is 101, carbon dioxide 26, BUN 28, creatinine is 0.97. Glucose 191, calcium is 8.6. IMPRESSION AND PLAN: 1. ACUTE ASTHMA EXACERBATION. Overall, this is much improved. The patient is no longer requiring O2. Will ambulate and check oxygen saturations on room air. Will taper steroid and follow. 2. ACUTE ON CHRONIC HYPOXEMIC RESPIRATORY FAILURE. The patient is not currently O2 dependent at this time; however, will obtain ambulating oxygen saturation. 3. ATRIAL FIBRILLATION, INITIALLY THOUGHT TO BE NEW ONSET, but on further investigation, appears that this has been an issue for some time. The patient is currently rate controlled, anticoagulated. Will follow. 4. DIABETES MELLITUS TYPE 2. Have continued the patient's home medications. 5. HYPOMAGNESEMIA. This was repleted. 6. DVT PROPHYLAXIS. The patient is anticoagulated. DISPOSITION: The patient is a DO NOT RESUSCITATE/DO NOT INTUBATE. Pending patient's symptomatology and diagnostic findings, will re-evaluate in the a.m. for discharge. Time spent on this followup including assessment, plan, physical examination, patient education, and specialty collaboration is 25 minutes. DICTATING PHYSICIAN: BENI VARGAS NP [id number] PHY#: [id number] ID: [id number] JOB#: [id number] ACCT: [id number] cc: >
[2017-06-18] MEDS: PREDNISONE 20 MG TABLET PO SCH (17:35)
[2017-06-18] MEDS: LACTOBACILLUS ACIDOPHILUS 250 MG TAB PO SCH (17:36)
[2017-06-18] MEDS: TRAMADOL HCL 50 MG TABLET PO PRN (20:33)
[2017-06-18] MEDS: OXYBUTYNIN CHLORIDE 5 MG TABLET PO SCH (21:13)
[2017-06-18] MEDS: LORAZEPAM 0.5 MG TABLET PO SCH (21:13)
[2017-06-19] MEDS: TRAMADOL HCL 50 MG TABLET PO PRN (04:10)
[2017-06-19] MEDS ORDERED: LEVOTHYROXINE SODIUM 0.1 MG TABLET PO SCH (08:00)
[2017-06-19] MEDS: METFORMIN HCL 500 MG TABLET PO SCH (08:20)
[2017-06-19] MEDS: LEVALBUTEROL HCL NEB 0.63 MG/3 ML AMPUL NEB PRN (08:51)
[2017-06-19 09:24] VITALS: BP 184/97
[2017-06-19] MEDS: APIXABAN 5 MG TABLET PO SCH (09:33)
[2017-06-19] MEDS: LACTOBACILLUS ACIDOPHILUS 250 MG TAB PO SCH (09:34)
[2017-06-19] MEDS: CARVEDILOL 12.5 MG TABLET PO SCH (09:34)
[2017-06-19] MEDS: LISINOPRIL 10 MG TABLET PO SCH (09:35)
[2017-06-19] MEDS: PREDNISONE 20 MG TABLET PO SCH (09:35)
--- NOTE | 2017-06-19 10:31 | DISCHARGE SUMMARY E ---
Discharge Summary NAME: JASMIN CONWAY : 1940 AGE: 77Y ADMITTED: 06/17/2017 DISCHARGED: 06/19/2017 CODE STATUS: DO NOT RESUSCITATE, DO NOT INTUBATE. PRIMARY CARE PROVIDER: Sweta Sellers DO CONSULTING LEAD PAINTER: Dr. Witt DISCHARGE DIAGNOSES: 1. Acute asthma exacerbation. 2. Acute on chronic hypoxemic respiratory failure. 3. Chronic atrial fibrillation with rapid ventricular response, now controlled. 4. Diabetes mellitus type 2 well controlled. 5. Hypomagnesemia. 6. Intermittent diarrhea. 7. Newly added chronic anticoagulation. 8. Hypothyroidism. DISCHARGE MEDICATIONS: Include: 1. Potassium 10 mEq p.o. daily, #30 capsules with 0 refills. 2. Lisinopril 10 mg p.o. b.i.d., #30 tablets 0 refills. 3. Lasix 20 mg p.o. every morning, #30 tablets 0 refills. 4. Coreg 25 mg p.o. every 12 hours, #60 tablets 0 refills. 5. Align 4 mg p.o. b.i.d., #28 capsules 0 refills. 6. Eliquis 5 mg p.o. b.i.d., #60 tablets with 0 refills. 7. Ultram 50 mg p.o. every 6 hours p.r.n. 8. Ditropan 5 mg p.o. nightly. 9. Zofran 4 mg p.o. every 4 hours p.r.n. 10. Glucophage 1000 mg p.o. b.i.d. 11. Ativan 0.5 mg p.o. nightly. 12. Synthroid 200 mcg p.o. every morning. 13. Vitamin B12, 1000 mcg subcutaneous every 4 weeks. 14. ProAir HFA 2 puffs inhalation every 4 hours p.r.n. DIET: Heart healthy, diabetic. ACTIVITY: As tolerated. The patient has declined home health and physical therapy. DIAGNOSTICS: 1. Laboratory values are as follows: a. Hematology obtained on 06/17/2017: WBCs of 5.6, hemoglobin 12.7, hematocrit 41.4, platelet count 206,000. b. Venous blood gas obtained on 06/17/2017 with pH of 7.46, pCO2 of 38.3, bicarb 28.6. c. Chemistry obtained on 06/18/2017: Sodium 140, potassium 3.8, chloride 101, carbon dioxide 26, BUN 28, creatinine 0.07, glucose 191, calcium 8.6, magnesium 1.6, bilirubin 25, AST 26, ALT 28, alkaline phosphatase 62, total protein 7.0, albumin 3.7. TSH 2.47. d. Other body source obtained on 06/18/2017: Stool for occult blood is negative. e. Stool for WBCs was negative. f. Serology obtained on 06/18/2017: C. diff. toxin is negative. 2. Microbiology: a. Blood cultures obtained on 06/17/2017 revealed no growth. b. Stool culture obtained on 06/18/2017, preliminary reveals no growth. 3. Chest x-ray obtained on 06/17/2017 reveals no acute cardiopulmonary findings. 4. Echocardiogram obtained on 06/17/2017 reveals mild dilation of right atrium, a trace amount of mitral regurgitation with evidence of mild left ventricular hypertrophy. 5. EKG obtained on 06/17/2017 reveals atrial fibrillation. PHYSICAL EXAMINATION: GENERAL: On examination, the patient is a well-developed, frail-appearing 77-year-old female who is awake, alert and oriented to person, place, time and situation. She is verbal, conversational, and ambulatory, does not appear to be in acute distress. VITAL SIGNS: As follows: Temperature 97.0, pulse 82, respirations 18, blood pressure 148/92, oxygen saturation 95% on room air. SKIN: Warm and dry. No rash. Not diaphoretic. HEENT: Pupils are equal, round and reactive to light and accommodation. Conjunctivae are pink. There is no JVD. CARDIOVASCULAR SYSTEM: Heart is irregularly irregular. There is no murmur or rub. CHEST: Diminished with expiratory wheezes noted, but symmetrical. ABDOMEN: Obese, soft. No area of focal tenderness. EXTREMITIES: No clubbing, cyanosis, trace bilateral lower extremity edema which is improved. PSYCHIATRIC: Appropriate affect, pleasant mood. HISTORY OF PRESENT ILLNESS: The patient is a 77-year-old female with a past medical history of diabetes mellitus type 2 which is well controlled. The patient presented to the emergency department with a chief complaint of shortness of breath. The patient stated that her symptoms have been gradually increasing over the week prior to presentation with wheezing, shortness of breath. The patient contacted her primary care provider's office whose instructions were for the patient to come to the emergency department for evaluation. Upon presentation to the emergency department, the patient was found to have a mag of 1.2. The patient was also noted to be tachypneic and had a heart rate of 78, oxygen saturation was 89% and the patient's heart rate was 135 and findings that were suggestive of atrial fibrillation. The patient's mag was replenished and the patient's heart rate improved with saline bolus as well as 1 IV dose of Cardizem. However, due to the patient's wheezing, she received a total of 6 DuoNebs as well as Solu-Medrol and the patient appeared to be in RVR, but again this did improve after an IV bolus of Cardizem. Upon further questioning, the patient stated that she had an irregular heart beat in the past and the words "atrial fibrillation" did ring a block. The patient has seen 2 cardiologists remotely; however, she had never been started on any anticoagulation or rate control medications to her knowledge. The patient denies ever being on blood thinners. HOSPITAL COURSE: The patient was admitted to [facility]. The patient was placed on Xopenex breathing treatments as well as mild doses of steroids; however, the patient's breathing improved once her rate was better controlled. The patient did not require oxygen, was out 24 hours and was able to ambulate without having episodes of hypoxia. During the patient's stay, she did develop diarrhea which did improve with probiotic. The patient's stool studies were found to be unremarkable. The patient states that she has had problems with intermittent diarrhea in the past. The patient's atrial fibrillation was evaluated by Dr. Witt. The patient was started on Eliquis, for which the patient has tolerated well. The patient's Coreg dosage was increased as well. The patient was also started on a low dose of diuretic therapy as well as potassium. The patient does need to follow up with cardiology on an outpatient basis. Overall, the patient's symptoms are much improved in comparison to admission and she feels ready for discharge. The patient was highly encouraged to participate in home health with physical therapy. The patient adamantly declined this; therefore, she did forego any outpatient followup in the home. TIME SPENT: Time spent on this discharge including assessment, plan, physical examination, patient education, review of records and speciality collaboration was 25 minutes. DICTATING PHYSICIAN: BENI VARGAS NP [id number] PHY#: [id number] ID: [id number] JOB#: [id number] ACCT: [id number] cc:BENI VARGAS NP >
--- NOTE | 2017-06-19 11:49 | PDOC PROGRESS REPORT ---
Subjective Progress Note for:: 06/19/17 Subjective:: Patient seems to be doing better with gradual improvement, no new complaints, breathing is better. Pt is denying any chest arm or neck discomfort. Patient denying any PND, orthopnea. Patient denied any sustained palpitations, dizziness, syncope, near syncope. Patient denying any fever chills. Patient denying any other significant discomfort. Patient is maintaining sustained atrial fibrillation. Review of systems: Rest review of systems negative. Medications: Medications have been reviewed. Physical Exam Vital Signs: Temp Pulse Resp BP Pulse Ox 98.0 F 76 18 184/97 H 95 06/19/17 09:21 06/19/17 09:21 06/19/17 09:21 06/19/17 09:21 06/19/17 09:21 Intake & Output 06/18/17 06/19/17 06/20/17 06:59 06:59 06:59 Intake Total 500 897 Output Total 1060 675 Balance -560 222 Weight 94.9 kg Exam: GENERAL: well-nourished and in no acute distress. Alert and oriented x3 HEAD: Atraumatic, normocephalic. EYES: Pupils equal round and reactive to light, extraocular movements intact, sclera anicteric, conjunctiva are normal. ENT: TMs normal, nares patent, oropharynx clear without exudates. Moist mucous membranes. No oral ulcerations or bleeding gums noted NECK: supple without lymphadenopathy. Trachea is central. No cervical or axillary lymphadenopathy noted. Carotids are 2+, JVD WNL LUNGS: Respiration seems nonlabored, no significant accessory muscle action noted. Breath sounds clear to auscultation bilaterally and equal noted. No wheezes rales or rhonchi noted. No significant dullness noted on percussion. CHEST: Palpation of the chest wall shows no significant chest wall tenderness. No other significant abnormalities noted. 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 ABDOMEN: Soft, no significant tenderness appreciated, normoactive bowel sounds. No guarding, no rebound. No rigidity noted . No masses appreciated. EXTREMITIES: Pedal pulses are 1-2+, no calf tenderness noted. No clubbing or cyanosis.trace to 1+ pedal edema noted NEUROLOGICAL: Focused neurological exam showed no significant neurologic deficit. Normal speech, no focal weakness appreciated. PSYCH: Normal mood, normal affect. Judgment and insight within normal limits. SKIN: No significant ecchymosis, rash, ulcerations or signs of pruritus noted. MUSCULOSKELETAL EXAM: No significant joint swelling noted. Results Laboratory Results: 06/18/17 03:47 06/18/17 06/18/17 14:10 14:10 Stool Occult Blood NEGATIVE Stool for White Cells NO WBCs SEEN EKG Comments: Telemetry strips reviewed shows atrial fibrillation with controlled heart rate response. No significant atrial or ventricular ectopic activity is noted. Impressions: Chest X-Ray 06/17/17 04:58 IMPRESSION: No acute cardiopulmonary findings. Assessment & Plan - Diagnosis (1) Atrial fibrillation Qualifiers: Atrial fibrillation type: unspecified Qualified Code(s): I48.91 - Unspecified atrial fibrillation Is this a current diagnosis for this admission?: Yes (2) Hypertension Qualifiers: Hypertension type: essential hypertension Qualified Code(s): I10 - Essential (primary) hypertension Is this a current diagnosis for this admission?: Yes (3) Asthma exacerbation Is this a current diagnosis for this admission?: Yes (4) Diabetes Qualifiers: Diabetes mellitus type: type 2 Diabetes mellitus complication status: with unspecified complications 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 insulin use: unspecified correction insulin use status Qualified Code(s): E11.8 - Type 2 diabetes mellitus with unspecified complications; 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 Is this a current diagnosis for this admission?: Yes (5) GERD (gastroesophageal reflux disease) Qualifiers: Esophagitis presence: esophagitis presence not specified Qualified Code(s): K21.9 - Gastro-esophageal reflux disease without esophagitis Is this a current diagnosis for this admission?: Yes (6) Hypomagnesemia Is this a current diagnosis for this admission?: Yes (7) Hypothyroidism Qualifiers: Hypothyroidism type: unspecified Qualified Code(s): E03.9 - Hypothyroidism, unspecified Is this a current diagnosis for this admission?: Yes (8) Obesity (BMI 30-39.9) Is this a current diagnosis for this admission?: Yes - Notes Notes: Atrial fibrillation: Last EKG showing normal sinus rhythm is from September 2015. Exact duration not known. At this point will recommend chronic anticoagulation and rate control. After 1 month of chronic anticoagulation, cardioversion could be considered if patient remains significantly symptomatic. Telemetry strips reviewed shows heart rate well controlled on current on rate lowering agents. Hypertension: Patient was noted to have severe hypertension on presentation. Now blood pressure under reasonable control. Continue current antihypertensive regimen. Asthma exacerbation: Continue steroids and bronchodilator therapy. Diabetes: Recommend good control of blood sugar. However should avoid any hypoglycemia. Patient being expertly managed by primary care MSteve. Gastroesophageal reflux disease: Continue proton pump inhibitor. Hypomagnesemia: Have started replacement by IV magnesium. Hypothyroidism: Continue current replacement therapy. Obesity: Patient would benefit from sleep study as an outpatient as untreated sleep apnea does increase the risk of recurrent atrial fibrillation. Patient to be considered for event monitoring as an outpatient to document adequate heart rate control at home. - Time Time with patient: 15-25 minutes - CODE STATUS : was discussed, patient remains DO NOT RESUSCITATE. Surrogate decision-maker unchanged. Multiple medical problems were addressed. More than 50% of the time spent coordinating care, discussing management plans with involved caregivers. Management plans discussed with involved personnels. Medical decision making was of moderate to high complexity, patient's has multiple comorbidities.
[2017-07-13] MEDS ORDERED: CYANOCOBALAMIN (VITAMIN B-12) INJ 1000 MCG/1 ML VIAL SUBCUT SCH (09:30)
== END 2017-06-19 11:30 | disposition home or self-care (01) | DRG 202 ==
LOC: ER 04:49 → UNDOADMIN 08:10 → EH 08:10 → ICU 10:00 → 3S 06-18 09:20
DX: J45.901 Unspecified asthma with (acute) exacerbation (principal); J96.21 Acute and chronic respiratory failure with hypoxia; I48.91 Unspecified atrial fibrillation; Z66 Do not resuscitate; E83.42 Hypomagnesemia; I10 Essential (primary) hypertension; E78.5 Hyperlipidemia, unspecified; E11.9 Type 2 diabetes mellitus without complications; E03.9 Hypothyroidism, unspecified; E66.9 Obesity, unspecified; Z96.653 Presence of artificial knee joint, bilateral; Z96.641 Presence of right artificial hip joint; Z87.891 Personal history of nicotine dependence; Z68.38 Body mass index [BMI] 38.0-38.9, adult; Z79.84 Long term (current) use of oral hypoglycemic drugs; Z79.51 Long term (current) use of inhaled steroids; Z79.52 Long term (current) use of systemic steroids; Z79.899 Other long term (current) drug therapy
CPT/HCPCS: 36415; 71010; 80053; 82272; 82550; 82553; 82803; 82962; 83605; 83735; 84443; 84484; 85025; 87040; 87045; 87205; 87493; 89055; 93005; 93010; 93306; 94640; 96361; 96365; 96375; 99285; G8978-GP; G8979-GP; J1815; J2930; J3475; J3490; J7030; J7512; J7614; J7620

== ENCOUNTER 2018-03-19 10:47 | Observation (INO) | payer MEDICARE ==
[2018-03-19] MEDS ORDERED: ASPIRIN 81 MG TABLET, CHEWABLE PO ONE (11:33)
[2018-03-19 11:43] LABS: HEMATOCRIT 34.5 % (36.0-47.0); HEMOGLOBIN 11.1 g/dL (12.0-15.5); MEAN CORPUSCULAR HEMOGLOBIN 29.5 pg (27.0-33.4); MEAN CORPUSCULAR HGB CONC 32.2 g/dL (32.0-36.0); MEAN CORPUSCULAR VOLUME 92 fl (80-97); PLATELET COUNT 149 10^3/uL (150-450); RED BLOOD COUNT 3.77 10^6/uL (3.72-5.28); RED CELL DISTRIBUTION WIDTH 16.4 % (11.5-14.0); WHITE BLOOD COUNT 7.9 10^3/uL (4.0-10.5)
[2018-03-19 11:53] LABS: ALANINE AMINOTRANSFERASE 33 U/L (9-52); ALBUMIN 3.9 g/dL (3.5-5.0); ALKALINE PHOSPHATASE 70 U/L (38-126); ANION GAP 11 (5-19); ASPARTATE AMINO TRANSFERASE 32 U/L (14-36); BILIRUBIN,DIRECT 0.3 mg/dL (0.0-0.4); BILIRUBIN,TOTAL 0.3 mg/dL (0.2-1.3); BLOOD UREA NITROGEN 21 mg/dL (7-20); CALCIUM 9.2 mg/dL (8.4-10.2); CARBON DIOXIDE 26 mmol/L (22-30); CHLORIDE 105 mmol/L (98-107); CREATINE KINASE 38 U/L (30-135); GLUCOSE 119 mg/dL (75-110); POTASSIUM 4.9 mmol/L (3.6-5.0); SODIUM 141.7 mmol/L (137-145); TOTAL PROTEIN 6.6 g/dL (6.3-8.2)
[2018-03-19 12:04] LABS: CREATINE KINASE MB 1.09 ng/mL (<4.55)
[2018-03-19 12:05] LABS: TROPONIN I < 0.012 ng/mL
--- NOTE | 2018-03-19 12:11 | ER Document Report ---
ED General - General TRAVEL OUTSIDE OF THE [place] IN LAST 30 DAYS: No <WENDY BOURGEOIS Abeba - Last Filed: 03/19/18 12:11> - General TRAVEL OUTSIDE OF THE [place] IN LAST 30 DAYS: No - HPI Onset: Yesterday Onset/Duration: Gradual, Constant Quality of pain: Achy Severity: Moderate Pain Level: 2 <DENIZ COOLEY - Last Filed: 03/19/18 13:52> - General Chief Complaint: Chest Wall Pain Stated Complaint: BREATHING PROBLEMS Notes: This is a 78-year-old female who states that she has not felt well over the last couple of days. Having some epigastric and chest pain. Just felt a little nauseated today and just did not feel like herself. New that she need to get seen by regular doctor so made an attempt to go to her doctor today. She arrived at the office reportedly she looked "very ill". The office staff was concerned. The doctor was called and he was concerned as well so patient was advised to come to the ER. Patient does have a history of atrial fibrillation. Not on any blood thinners. (DENIZ COOLEY) - Related Data Allergies/Adverse Reactions: sulfamethoxazole [From Bactrim] Allergy (Severe, Verified 01/09/16 14:51) rash, "mad itch" trimethoprim [From Bactrim] Allergy (Severe, Verified 01/09/16 14:51) rash, "mad itch" Past Medical History - Social History Smoking Status: Unknown if Ever Smoked Family History: Malignancy - mother Patient has suicidal ideation: No Patient has homicidal ideation: No - Past Medical History Cardiac Medical History: Reports: Hx Hypercholesterolemia - meds x 10 years, Hx Hypertension - meds x 50 years Denies: Hx Atrial Fibrillation, Hx Congestive Heart Failure, Hx Coronary Artery Disease, Hx Heart Attack, Hx Peripheral Vascular Disease, Hx Pulmonary Embolism, Hx Heart Murmur Pulmonary Medical History: Reports: Hx Asthma, Hx Pneumonia - no hospitalization , Hx Sleep Apnea - Dx'ed approx 5 years ago, does NOT use CPAP Denies: Hx Bronchitis, Hx COPD, Hx Respiratory Failure, Hx Tuberculosis Neurological Medical History: Denies: Hx Seizures Endocrine Medical History: Reports: Hx Diabetes Mellitus Type 2, Hx Hypothyroidism - meds since age 13 years old (3). Denies: Hx Diabetes Mellitus Type 1, Hx Graves' Disease, Hx Hyperthyroidism Renal/ Medical History: Denies: Hx End Stage Renal Disease, Hx Kidney Stones, Hx Ovarian Cysts, Hx Peritoneal Dialysis, Hx Pelvic Inflammatory Disease Malignancy Medical History: Denies: Hx Breast Cancer, Hx Cervical Cancer, Hx Leukemia, Hx Lung Cancer, Hx Ovarian Cancer GI Medical History: Denies: Hx Crohn's Disease, Hx Gastroesophageal Reflux Disease, Hx Hiatal Hernia, Hx Irritable Bowel, Hx Liver Failure, Hx Pancreatitis , Hx Ulcer Musculoskeltal Medical History: Reports Hx Arthritis, Denies Hx Fibromyalgia, Denies Hx Muscular Dystrophy Traumatic Medical History: Reports: Hx Fractures - RT elbow & RT arm ? ulna vs radius, denies surgery Infectious Medical History: Denies: Hx HIV Past Surgical History: Reports: Hx Section - 1977, Hx Cholecystectomy - lap 2013, Hx Orthopedic Surgery - bilat knee replacement, Hx Thyroid Surgery. Denies: Hx Appendectomy, Hx Bowel Surgery, Hx Colostomy, Hx Coronary Artery Bypass Graft, Hx Gastric Bypass Surgery, Hx Herniorrhaphy, Hx Hysterectomy, Hx Mastectomy, Hx Pacemaker, Hx Tonsillectomy, Hx Tubal Ligation - Immunizations Hx Diphtheria, Pertussis, Tetanus Vaccination: Yes - 2001 Hx Pneumococcal Vaccination: 11/23/11 <WENDY BOURGEOIS A - Last Filed: 03/19/18 12:11> - General Information source: Patient - Social History Smoking Status: Never Smoker Frequency of alcohol use: None Drug Abuse: None Lives with: Family Family History: Reviewed & Not Pertinent <DENIZ COOLEY A - Last Filed: 03/19/18 13:52> Physical Exam <WENDY BOURGEOIS A - Last Filed: 03/19/18 12:11> - Vital signs Interpretation: Tachycardic, Other - Irregular - General General appearance: Appears well, Alert - HEENT Head: Normocephalic, Atraumatic Eyes: Normal Pupils: PERRL - Respiratory Respiratory status: No respiratory distress Chest status: Nontender Breath sounds: Normal Chest palpation: Normal - Cardiovascular Rhythm: Irregularly irregular, Tachycardia Heart sounds: Normal auscultation Murmur: No - Abdominal Inspection: Normal Distension: No distension Bowel sounds: Normal Tenderness: Nontender Organomegaly: No organomegaly - Back Back: Normal, Nontender - Extremities General upper extremity: Normal inspection, Nontender, Normal color, Normal ROM , Normal temperature General lower extremity: Normal inspection, Nontender, Edema, Normal color, Normal ROM, Normal temperature, Normal weight bearing. No: Essie's sign - Neurological Neuro grossly intact: Yes Cognition: Normal Orientation: AAOx4 Raymond Coma Scale Eye Opening: Spontaneous Raymond Coma Scale Verbal: Oriented Tolley Coma Scale Motor: Obeys Commands Raymond Coma Scale Total: 15 Speech: Normal Motor strength normal: LUE, RUE, LLE, RLE Sensory: Normal - Psychological Associated symptoms: Normal affect, Normal mood - Skin Skin Temperature: Warm Skin Moisture: Dry Skin Color: Normal <DENIZ COOLEY - Last Filed: 03/19/18 13:52> - Vital signs Vitals: Resp 23 H 03/19/18 11:07 - Cardiovascular Notes: Edema noted bilateral lower extremities 2+ pitting edema. (DENIZ COOLEY) Course - Laboratory Result Diagrams: 03/19/18 11:22 03/19/18 11:22 <WENDY BOURGEOIS - Last Filed: 03/19/18 12:11> - Laboratory Result Diagrams: 03/19/18 11:22 03/19/18 11:22 <DENIZ COOLEY - Last Filed: 03/19/18 13:52> - Re-evaluation Re-evalutation: 03/19/18 13:24 This is a 70-year-old female. A. fib. Not feeling well. We will do basic workup at this time. 03/19/18 13:47 Labs are fairly unremarkable the section of the slightly elevated BNP indicating patient is in congestive heart failure. Patient is not controlled well on her rate. Still in A. fib. Not on anticoagulation. Has lower extremity edema. Explained to her the significant risks involved in her untreated A. fib. Patient needs to be admitted. Initially she was argumentative about this but I have explained to her that the risks of a stroke is so high that she needs to be evaluated acutely. Consult with the hospitalist , Dr. Nunez to admit patient at this time. (DENIZ COOLEY) - Vital Signs Vital signs: Temp Pulse Resp BP Pulse Ox 17 146/91 H 97 03/19/18 11:09 03/19/18 11:09 03/19/18 11:09 - Laboratory Laboratory results interpreted by me: 03/19/18 03/19/18 03/19/18 11:22 11:22 11:22 Hgb 11.1 L Hct 34.5 L RDW 16.4 H Plt Count 149 L Seg Neuts % (Manual) 41 L BUN 21 H Glucose 119 H NT-Pro-B Natriuret Pep 758 H Discharge <WENDY BOURGEOIS A - Last Filed: 03/19/18 12:11> - Discharge Admitting Provider: Hospitalist - [facility] Admitted: Telemetry <DENIZ COOLEY - Last Filed: 03/19/18 13:52> - Discharge Clinical Impression: Congestive heart failure (CHF) Qualifiers: Heart failure type: unspecified Heart failure chronicity: unspecified Qualified Code(s): I50.9 - Heart failure, unspecified Atrial fibrillation Qualifiers: Atrial fibrillation type: unspecified Qualified Code(s): I48.91 - Unspecified atrial fibrillation Condition: Good Disposition: ADMITTED INPATIENT Referrals: NEGRITA MAI DO [Primary Care Provider] - Follow up as needed
[2018-03-19 12:34] LABS: ABSOLUTE LYMPHOCYTES# (MANUAL) 3.5 10^3/uL (0.5-4.7); ABSOLUTE NEUTROPHILS# (MANUAL) 3.2 10^3/uL (1.7-8.2); BASOPHILS % (MANUAL) 1 % (0-2); EOSINOPHILS % (MANUAL) 1 % (0-6); LYMPHOCYTES % (MANUAL) 39 % (13-45); MONOCYTES % (MANUAL) 13 % (3-13); SEGMENTED NEUTROPHILS % (MAN) 41 % (42-78); TOTAL CELLS COUNTED 100
[2018-03-19 12:35] LABS: ANISOCYTOSIS 1+; HYPOCHROMASIA SLIGHT; PLATELET CLUMPS PRESENT; POLYCHROMASIA SLIGHT
--- NOTE | 2018-03-19 12:56 | EKG REPORT ---
SEVERITY:- ABNORMAL ECG - ATRIAL FIBRILLATION, V-RATE 61-118 LEFT ANTERIOR FASCICULAR BLOCK CONSIDER ANTEROSEPTAL INFARCT : Confirmed by: Edin Barraza MD 19-Mar-2018 12:55:05
--- NOTE | 2018-03-19 12:58 | RADIOLOGY REPORT (SQ) ---
EXAM DESCRIPTION: CHEST SINGLE VIEW portable COMPLETED DATE/TIME: 03/19/2018 12:30 pm REASON FOR STUDY: chest pain COMPARISON: 06/17/2017 EXAM PARAMETERS: NUMBER OF VIEWS: One view. TECHNIQUE: Single frontal radiographic view of the chest acquired. RADIATION DOSE: NA LIMITATIONS: Patient body habitus. FINDINGS: LUNGS AND PLEURA: No opacities, masses or pneumothorax. No pleural effusion. MEDIASTINUM AND HILAR STRUCTURES: No masses. Contour normal. HEART AND VASCULAR STRUCTURES: Heart stable. No overt CHF. BONES: Arthritic changes the shoulders. HARDWARE: None in the chest. OTHER: No other significant finding. IMPRESSION: Nothing acute. TECHNICAL DOCUMENTATION: JOB ID: [id number] [employer]- All Rights Reserved Reading location - IP/workstation name: [email or web address]
[2018-03-19 13:43] LABS: APPEARANCE,URINE CLEAR; BILIRUBIN,URINE NEGATIVE (NEGATIVE); COLOR,URINE YELLOW; GLUCOSE, URINE NEGATIVE (NEGATIVE); KETONES,URINE NEGATIVE (NEGATIVE); LEUKOCYTE ESTERASE,URINE NEGATIVE (NEGATIVE); NITRITE,URINE NEGATIVE (NEGATIVE); PROTEIN,URINE NEGATIVE (NEGATIVE); URINE SPECIFIC GRAVITY 1.012; UROBILINOGEN,URINE NEGATIVE mg/dL (<2.0)
[2018-03-19] MEDS ORDERED: ONDANSETRON HCL INJ/PF 4 MG/2 ML SDV IV PRN (14:38)
[2018-03-19] MEDS ORDERED: MAGNESIUM HYDROXIDE SUSP 30 ML UDCUP PO PRN (14:38)
[2018-03-19] MEDS ORDERED: OXYCODONE-ACETAMINOPHEN 5-325 MG TABLET PO PRN (14:38)
[2018-03-19] MEDS ORDERED: ACETAMINOPHEN 325 MG TABLET PO PRN (14:38)
[2018-03-19] MEDS ORDERED: IPRATROPIUM/ALBUTEROL 0.5-2.5 MG/3 ML AMPUL NEB PRN (14:38)
[2018-03-19] MEDS ORDERED: TEMAZEPAM 7.5 MG CAPSULE PO PRN (14:38)
--- NOTE | 2018-03-19 15:04 | PDOC H&P ---
History of Present Illness Admission Date/PCP: 03/19/18 14:08 NEGRITA MAI DO Patient complains of: Chest pain, nausea and not feeling well History of Present Illness: JASMIN CONWAY is a 78 year old female She was found to be in atrial fibrillation in the emergency room however this is a known issues. She was sent to the emergency room by her primary care physician for further evaluation. Patient does have a history of atrial fibrillation, she was supposed to be on anticoagulant but it appears patient chose not to use this due to the numerous side effects potential. She denies any prior history of a stroke. She does complain of some nausea and chest pain which have resolved. She actually has an appointment with the torpedoman's mate on Thursday next week. She had an echocardiogram done in May of last year which showed a grossly intact left ventricular systolic function with no valvular abnormalities. Her chads vas 2 score is 3. Past Medical History Cardiac Medical History: Reports: Atrial Fibrillation, Hyperlipidema - meds x 10 years, Hypertension - meds x 50 years Denies: Congestive Heart Failure, Coronary Artery Disease, Myocardial Infarction, Peripheral Vascular Disease, Pulmonary Embolism, Heart Murmur Pulmonary Medical History: Reports: Asthma, Pneumonia - no hospitalization, Sleep Apnea - Dx'ed approx 5 years ago, does NOT use CPAP Denies: Bronchitis, Chronic Obstructive Pulmonary Disease (COPD), Respiratory Failure, Tuberculosis Neurological Medical History: Denies: Seizures Endocrine Medical History: Reports: Diabetes Mellitus Type 2, Hypothyroidism - meds since age 13 years old (3) Denies: Diabetes Mellitus Type 1, Hyperthyroidism Renal/ Medical History: Denies: End Stage Renal Disease Malignancy Medical History: Denies: Breast Cancer, Cervical Cancer, Leukemia, Lung Cancer, Ovarian Cancer GI Medical History: Denies: Crohn's Disease, Gastroesophageal Reflux Disease, Hiatal Hernia Musculoskeltal Medical History: Reports: Arthritis Denies: Fibromyalgia Hematology: Reports: Anemia - occ Denies: Hemophilia, Sickle Cell Disease Infectious Medical History: Denies: HIV Past Surgical History Past Surgical History: Reports: Section - 1977, Cholecystectomy - lap 2013, Orthopedic Surgery - bilat knee replacement Denies: Amputation, Appendectomy, Colostomy, Coronary Artery Bypass Graft, Gastric Bypass Surgery, Herniorrhaphy, Hysterectomy, Mastectomy, Pacemaker, Tonsillectomy, Tubal Ligation Social History Lives with: Family Smoking Status: Never Smoker Frequency of Alcohol Use: Rare Hx Recreational Drug Use: No Hx Prescription Drug Abuse: No Family History Family History: Reviewed & Not Pertinent Parental Family History Reviewed: Yes Children Family History Reviewed: Yes Sibling(s) Family History Reviewed.: Yes Medication/Allergy Home Medications: Albuterol Sulfate [Proair HFA Inhalation Aerosol 8.5 gm MDI] 2 puff IH Q4HP PRN 03/19/18 Levothyroxine Sodium [Synthroid] 200 mcg PO ACBRKFST 03/19/18 Lisinopril [Prinivil 10 mg Tablet] 10 mg PO DAILY 03/19/18 Lorazepam [Ativan 0.5 mg Tablet] 0.5 mg PO QPM 03/19/18 Magnesium Oxide [Mag-Ox 400 mg Tablet] 400 mg PO DAILY 03/19/18 Metformin HCl 1,000 mg PO BIDBS 03/19/18 Metformin HCl [Glucophage 500 mg Tablet] 500 mg PO WLUNCH 03/19/18 Nystatin [Mycostatin Topical Powder 15 gm] 1 applic TOP TID 03/19/18 Ondansetron HCl [Zofran 8 mg Tablet] 8 mg PO Q8HP PRN 03/19/18 Tramadol HCl [Ultram 50 mg Tablet] 50 mg PO Q12HP PRN 03/19/18 Allergies/Adverse Reactions: sulfamethoxazole [From Bactrim] Allergy (Severe, Verified 01/09/16 14:51) rash, "mad itch" trimethoprim [From Bactrim] Allergy (Severe, Verified 01/09/16 14:51) rash, "mad itch" Review of Systems Constitutional: PRESENT: as per HPI Eyes: ABSENT: visual disturbances Cardiovascular: PRESENT: edema. ABSENT: chest pain, orthropnea, palpitations Respiratory: PRESENT: as per HPI Gastrointestinal: PRESENT: diarrhea Genitourinary: ABSENT: dysuria, hematuria Neurological: PRESENT: weakness Endocrine: PRESENT: as per HPI Physical Exam Vital Signs: Temp Pulse Resp BP Pulse Ox 98.8 F 22 H 145/85 H 97 03/19/18 14:38 03/19/18 14:02 03/19/18 14:02 03/19/18 14:02 Intake & Output 03/18/18 03/19/18 03/20/18 06:59 06:59 06:59 Weight 99.79 kg Results Impressions: Chest X-Ray 03/19/18 11:33 IMPRESSION: Nothing acute. Assessment & Plan - Diagnosis (1) Atrial fibrillation Qualifiers: Atrial fibrillation type: unspecified Qualified Code(s): I48.91 - Unspecified atrial fibrillation Is this a current diagnosis for this admission?: Yes Plan: This is chronic patient has a grade 2 be placed on anticoagulant. I have advised of the potential adverse effects and she knows that she is comfortable with it. She will be started on Xarelto. She will also be placed on metoprolol for rate control. Echocardiogram has been ordered but as per the echo done last year ejection fraction was grossly intact. (2) Congestive heart failure (CHF) Qualifiers: Heart failure type: unspecified Heart failure chronicity: unspecified Qualified Code(s): I50.9 - Heart failure, unspecified Is this a current diagnosis for this admission?: Yes Plan: This is likely diastolic dysfunction. A repeat echocardiogram has been ordered and will follow with the results. She does have significant cardiomyopathy will consider changing her beta-chino to Coreg but at this time I will continue with the metoprolol. She will also be placed on Lasix. (4) Diabetes Qualifiers: Diabetes mellitus type: type 2 Diabetes mellitus [employer] insulin use: unspecified [employer] insulin use status Diabetes mellitus complication status : with unspecified complications Qualified Code(s): E11.8 - Type 2 diabetes mellitus with unspecified complications Is this a current diagnosis for this admission?: Yes Plan: We will continue with sliding scale insulin as well as home metformin (5) Hypertension Qualifiers: Hypertension type: essential hypertension Qualified Code(s): I10 - Essential (primary) hypertension Is this a current diagnosis for this admission?: Yes Plan: We will adjust medications for optimal blood pressure control - Time Time Spent: 50 to 70 Minutes Medications reviewed and adjusted accordingly: Yes Anticipated discharge: Home Within: within 24 hours - Inpatient Certification Based on my medical assessment, after consideration of the patient's comorbidities, presenting symptoms, or acuity I expect that the services needed warrant INPATIENT care.: Yes
[2018-03-19] MEDS ORDERED: FUROSEMIDE INJ/PF 40 MG/4 ML SDV IV ONE (15:30)
[2018-03-19] MEDS ORDERED: RIVAROXABAN 15 MG TABLET PO ONE (16:00)
[2018-03-19] MEDS ORDERED: DEXTROSE 40% GEL 15 GM TUBE X 2 PO PRN (17:39)
[2018-03-19] MEDS ORDERED: GLUCAGON,HUMAN RECOMB 1 MG INJ IM PRN (17:39)
[2018-03-19] MEDS ORDERED: DEXTROSE 50%-WATER SYRINGE 12.5 GM/25 ML DOSE IV PRN (17:39)
[2018-03-19] MEDS ORDERED: DEXTROSE 50%-WATER SYRINGE 25 GM/50 ML DOSE IV PRN (17:39)
[2018-03-19] MEDS ORDERED: DEXTROSE 40% GEL 15 GM TUBE PO PRN (17:39)
[2018-03-19] MEDS ORDERED: TRAMADOL HCL 50 MG TABLET PO PRN (18:04)
[2018-03-19 18:27] LABS: INTERNATIONAL RATION (INR) 1.71; PROTHROMBIN TIME 20.9 SEC (11.4-15.4)
--- NOTE | 2018-03-19 19:30 | XCELERA REPORT ---
[address] [address] Transthoracic Echocardiogram Report Name: JASMIN CONWAY Age: 78 yrs Gender: Female : 1940 Patient Status: Inpatient Patient Location: [address] [place] [address] Study Date: 03/19/2018 03:52 PM Height: 62 in Weight: 220 lb BSA: 2.0 m2 Procedure: A complete two-dimensional transthoracic echocardiogram was performed (2D, M-mode, spectral and color flow Doppler). The study was technically adequate with some images being suboptimal in quality. Reason For Study: Atrial Fibrillation Ordering Physician: KARUNA WELLS Performed By: Angelina Norton Interpretation Summary The left ventricular ejection fraction is normal. There is mild concentric left ventricular hypertrophy. The left ventricle is grossly normal size. LV diastolic function could not be adequately assessed due to atrial fibrilation. Wall motion cannot be accurately commented on, but no definite regional wall motion abnormalities noted. The right ventricular systolic function is normal. Borderline left atrial enlargement. The right atrium is normal. There is a mild amount of mitral regurgitation There is no mitral valve stenosis. No aortic regurgitation is present. There is no aortic valve stenosis No tricuspid regurgitation. There is no tricuspid stenosis. There is no pericardial effusion. MMode/2D Measurements & Calculations RVDd: 3.2 cm LVIDd: 5.0 cm FS: 40.7 % Ao root diam: 3.2 cm IVSd: 0.96 cm LVIDs: 3.0 cm EDV(Teich): 118.3 ml LVPWd: 0.95 cm ESV(Teich): 34.0 ml Ao root area: 8.0 cm2 EF(Teich): 71.3 % LA dimension: 3.5 cm Doppler Measurements & Calculations MV E max marietta: MV P1/2t max marietta: Ao V2 max: LV V1 max P.1 cm/sec 109.6 cm/sec 158.2 cm/sec 3.0 mmHg MV P1/2t: 48.5 msec Ao max PG: LV V1 max: 10.0 mmHg 85.9 cm/sec MVA(P1/2t): 4.5 cm2 MV dec slope: 661.3 cm/sec2 MV dec time: 0.15 sec PA V2 max: 69.6 cm/sec PA max P.9 mmHg Left Ventricle The left ventricle is grossly normal size. There is mild concentric left ventricular hypertrophy. The left ventricular ejection fraction is normal. LV diastolic function could not be adequately assessed due to atrial fibrilation. Wall motion cannot be accurately commented on, but no definite regional wall motion abnormalities noted. Right Ventricle The right ventricle is grossly normal size. There is normal right ventricular wall thickness. The right ventricular systolic function is normal. Atria The right atrium is normal. Borderline left atrial enlargement. A patent foramen ovale is suspected. Mitral Valve The mitral valve is grossly normal. There is no mitral valve stenosis. There is a mild amount of mitral regurgitation. Aortic Valve The aortic valve is grossly normal. There is no aortic valve stenosis. No aortic regurgitation is present. Tricuspid Valve The tricuspid valve is not well visualized, but is grossly normal. There is no tricuspid stenosis. No tricuspid regurgitation. Pulmonic Valve The pulmonic valve is not well visualized. Great Vessels The aortic root is not well visualized but is probably normal size. The inferior vena cava appeared normal and decreased > 50% with respiration (RAP 5-10 mmHg). Effusions There is no pericardial effusion. : KARUNA WELLS > Kayleen Witt
[2018-03-19] MEDS: METOPROLOL TARTRATE 25 MG TABLET PO SCH (21:32)
[2018-03-20] MEDS ORDERED: LEVOTHYROXINE SODIUM 0.1 MG TABLET PO SCH (06:00)
[2018-03-20] MEDS ORDERED: LOPERAMIDE HCL 2 MG CAPSULE PO PRN (07:56)
[2018-03-20] MEDS ORDERED: INSULIN LISPRO 100 UNIT/ML 3 ML VIAL SUBCUT SCH (08:00)
[2018-03-20] MEDS ORDERED: METFORMIN HCL 500 MG TABLET PO SCH (08:00)
[2018-03-20] MEDS: MAGNESIUM SULFATE/D5W 1 GM/100 ML RTUPB IV SCH ×3 (08:44→11:51)
[2018-03-20] MEDS ORDERED: RIVAROXABAN 15 MG TABLET PO SCH (10:00)
[2018-03-20] MEDS ORDERED: LISINOPRIL 10 MG TABLET PO SCH (10:00)
[2018-03-20] MEDS ORDERED: MAGNESIUM OXIDE 400 MG TABLET PO SCH (10:00)
[2018-03-20] MEDS ORDERED: FUROSEMIDE INJ/PF 40 MG/4 ML SDV IV SCH (10:00)
[2018-03-20] MEDS ORDERED: NYSTATIN TOPICAL POWDER 15 GM TOP SCH (10:00)
[2018-03-20] MEDS ORDERED: DOCUSATE SODIUM 100 MG CAPSULE PO SCH (10:00)
[2018-03-20] MEDS: METOPROLOL TARTRATE 25 MG TABLET PO SCH (10:08)
[2018-03-20 12:20] VITALS: BP 137/90
--- NOTE | 2018-03-20 15:25 | PDOC DISCHARGE SUMMARY ---
General - Admit/Disc Date/PCP Admission Date/Primary Care Provider: 03/19/18 14:08 NEGRITA MAI, Discharge Date: 03/20/18 - Discharge Diagnosis (1) Atrial fibrillation Is this a current diagnosis for this admission?: Yes (2) Congestive heart failure (CHF) Is this a current diagnosis for this admission?: Yes Summary: Chronic diastolic with acute decompensation (3) Obesity (BMI 30-39.9) Is this a current diagnosis for this admission?: Yes (4) Diabetes Is this a current diagnosis for this admission?: Yes (5) Hypertension Is this a current diagnosis for this admission?: Yes (6) Hypomagnesemia Is this a current diagnosis for this admission?: Yes - Additional Information Discharge Diet: Cardiac, Diabetic Discharge Activity: Activity As Tolerated Prescriptions: Furosemide [Lasix 20 mg Tablet] 20 mg PO QAM #30 tablet Metoprolol Tartrate [Lopressor 25 mg Tablet] 25 mg PO Q12 30 Days #60 tablet Rivaroxaban [Xarelto 15 mg Tablet] 15 mg PO DAILY 30 Days #30 tablet Home Medications: Albuterol Sulfate [Proair HFA Inhalation Aerosol 8.5 gm MDI] 2 puff IH Q4HP PRN 03/19/18 Levothyroxine Sodium [Synthroid] 200 mcg PO ACBRKFST 03/19/18 Lisinopril [Prinivil 10 mg Tablet] 10 mg PO DAILY 03/19/18 Lorazepam [Ativan 0.5 mg Tablet] 0.5 mg PO QPM 03/19/18 Metformin HCl 1,000 mg PO BIDBS 03/19/18 Metformin HCl [Glucophage 500 mg Tablet] 500 mg PO WLUNCH 03/19/18 Nystatin [Mycostatin Topical Powder 15 gm] 1 applic TOP TID 03/19/18 Ondansetron HCl [Zofran 8 mg Tablet] 8 mg PO Q8HP PRN 03/19/18 Tramadol HCl [Ultram 50 mg Tablet] 50 mg PO Q12HP PRN 03/19/18 Furosemide [Lasix 20 mg Tablet] 20 mg PO QAM #30 tablet 03/20/18 Magnesium Oxide [Mag-Ox 400 mg Tablet] 400 mg PO BID #0 03/20/18 Metoprolol Tartrate [Lopressor 25 mg Tablet] 25 mg PO Q12 30 Days #60 tablet Rivaroxaban [Xarelto 15 mg Tablet] 15 mg PO DAILY 30 Days #30 tablet 03/20/18 History of Present Illness Patient complains of: Difficulty breathing, leg swelling History of Present Illness: JASMIN CONWAY is a 78 year old female She was found to be in atrial fibrillation in the emergency room however this is a known issues. She was sent to the emergency room by her primary care physician for further evaluation. Patient does have a history of atrial fibrillation, she was supposed to be on anticoagulant but it appears patient chose not to use this due to the numerous side effects potential. She denies any prior history of a stroke. She does complain of some nausea and chest pain which have resolved. She actually has an appointment with the cold meat cook on Thursday next week. She had an echocardiogram done in May of last year which showed a grossly intact left ventricular systolic function with no valvular abnormalities. Her chads vas 2 score is 3. Hospital Course Hospital Course: Patient was admitted overnight and was diuresed with good response. She was started on Xarelto after being informed of the possible adverse effects. She had echocardiogram done which revealed a grossly normal left ventricular ejection fraction with no valvular abnormalities. She was also started on metoprolol which he need further outpatient adjustment. At this time patient feels much better and pulse has improved. With no further interventions been planned she is been discharged home. She already has a follow-up appointment with a cold meat cook in about 3 days. Will suggest further adjustment of her medications as needed. She remains in sinus rhythm but with a better controlled heart rate. Magnesium was 1.4 and she received intravenous magnesium riders prior to discharge and home magnesium dose has been increased. Physical Exam Vital Signs: Temp Pulse Resp BP Pulse Ox 98.5 F 91 12 137/90 H 96 03/20/18 12:17 03/20/18 12:17 03/20/18 12:17 03/20/18 12:17 03/20/18 12:17 Intake & Output 03/19/18 03/20/18 03/21/18 06:59 06:59 06:59 Intake Total 265 Output Total 3000 Balance -8385 Weight 99.7 kg General appearance: PRESENT: no acute distress, well-developed, well-nourished Head exam: PRESENT: atraumatic, normocephalic Eye exam: PRESENT: conjunctiva pink. ABSENT: scleral icterus Ear exam: PRESENT: normal external ear exam Mouth exam: PRESENT: moist, tongue midline Neck exam: ABSENT: carotid bruit, JVD, lymphadenopathy, thyromegaly Respiratory exam: PRESENT: clear to auscultation alfreda. ABSENT: rales, rhonchi, wheezes Cardiovascular exam: PRESENT: RRR. ABSENT: diastolic murmur, rubs, systolic murmur GI/Abdominal exam: PRESENT: normal bowel sounds, soft. ABSENT: distended, guarding, mass, organolmegaly, rebound, tenderness Rectal exam: PRESENT: deferred Extremities exam: PRESENT: full ROM, pedal edema, +1 edema. ABSENT: calf tenderness, clubbing Musculoskeletal exam: PRESENT: ambulatory - with cane Neurological exam: PRESENT: alert, awake, oriented to person, oriented to place , oriented to time, oriented to situation, CN II-XII grossly intact. ABSENT: motor sensory deficit Psychiatric exam: PRESENT: appropriate affect, normal mood. ABSENT: homicidal ideation, suicidal ideation Skin exam: PRESENT: dry, intact, warm. ABSENT: cyanosis, rash Results Laboratory Results: 03/19/18 03/19/18 18:03 18:03 Magnesium 1.4 L TSH 3.17 03/19/18 18:03 Troponin I < 0.012 Impressions: Chest X-Ray 03/19/18 11:33 IMPRESSION: Nothing acute. Qualifiers - * PATIENT BEING DISCHARGED WITH ANY OF THE FOLLOWING DIAGNOSIS: No Plan Time Spent: Less than 30 Minutes
[2018-03-20] MEDS ORDERED: LORAZEPAM 0.5 MG TABLET PO SCH (18:00)
== END 2018-03-20 13:50 | disposition home or self-care (01) ==
LOC: ER 10:47 → EH 14:08 → INTOOBSV 14:08 → 5 16:54
PROVIDERS: ADMIT Internal Medicine; ATTEND Internal Medicine
DX: I48.91 Unspecified atrial fibrillation (principal); I11.0 Hypertensive heart disease with heart failure; I50.33 Acute on chronic diastolic (congestive) heart failure; E66.9 Obesity, unspecified; E11.8 Type 2 diabetes mellitus with unspecified complications; E83.42 Hypomagnesemia; E03.9 Hypothyroidism, unspecified; R19.7 Diarrhea, unspecified; R53.1 Weakness; Z68.41 Body mass index [BMI] 40.0-44.9, adult; Z79.899 Other long term (current) drug therapy; Z79.84 Long term (current) use of oral hypoglycemic drugs; Z91.14 Patient's other noncompliance with medication regimen; Z90.49 Acquired absence of other specified parts of digestive tract; Z87.01 Personal history of pneumonia (recurrent); Z98.890 Other specified postprocedural states
CPT/HCPCS: 93005; 99285; 36415 ×2; 82553; 82962 ×2; 82550; 83690; 83735; 84443; 85025; 85610; 80053; 81001; 84484; 83036; 83880; 93306; 71045; 93010; A9270 ×13; J1940 ×2; J3475; J3490 ×2; G0378; J7620

== ENCOUNTER 2018-10-11 08:52 | Inpatient (IN) | payer MEDICARE ==
[2018-10-11] MEDS ORDERED: KETOROLAC TROMETHAMINE INJ/PF 30 MG/1 ML SDV IV ONE ×2 (09:15→19:00)
[2018-10-11] MEDS ORDERED: NORMAL SALINE 1000 ML 1,000 ML IV ONE (09:15)
--- NOTE | 2018-10-11 09:21 | ER Document Report ---
ED General - General Stated Complaint: FOOT PAIN Time Seen by Provider: 10/11/18 09:05 TRAVEL OUTSIDE OF THE [place] IN LAST 30 DAYS: No - HPI Notes: Patient is a 78-year-old female with a history of A. fib (on Xarelto), hypertension, congestive heart failure, type 2 diabetes, asthma, hypothyroidism , gout who presents to the ED for 2 complaints. The first complaint is acute gout flare to her right MTP joint which she has had in that area before. Patient states that the pain started over the last couple days and is very sensitive to touch. Patient states that she has had gouty attacks in this area previously. She denies any recent injury. The pain does not radiate. She has not noticed any red streaks or discharge. Her second complaint is nasal congestion/discharge, dry nonproductive cough, nausea with dry heaves that began over the last day. Patient states that she did have an episode of shortness of breath this morning at rest, but that has since resolved. She was getting SOB with exertion, however. No other concerns or complaints at this time. Denies any headache, fever, neck pain, changes in vision/speech/mentation /hearing, sore throat, chest pain, palpitations, syncope, wheeze, abdominal pain , vomiting/diarrhea, urinary retention, dysuria, hematuria, numbness/tingling, muscle paralysis, or rash. - Related Data Allergies/Adverse Reactions: sulfamethoxazole [From Bactrim] Allergy (Severe, Verified 01/09/16 14:51) rash, "mad itch" trimethoprim [From Bactrim] Allergy (Severe, Verified 01/09/16 14:51) rash, "mad itch" Past Medical History - Social History Smoking Status: Never Smoker Family History: Reviewed & Not Pertinent - Past Medical History Cardiac Medical History: Reports: Hx Atrial Fibrillation, Hx Hypercholesterolemia - meds x 10 years, Hx Hypertension - meds x 50 years Denies: Hx Congestive Heart Failure, Hx Coronary Artery Disease, Hx Heart Attack, Hx Peripheral Vascular Disease, Hx Pulmonary Embolism, Hx Heart Murmur Pulmonary Medical History: Reports: Hx Asthma, Hx Pneumonia - no hospitalization , Hx Sleep Apnea - Dx'ed approx 5 years ago, does NOT use CPAP Denies: Hx Bronchitis, Hx COPD, Hx Respiratory Failure, Hx Tuberculosis Neurological Medical History: Denies: Hx Seizures Endocrine Medical History: Reports: Hx Diabetes Mellitus Type 2, Hx Hypothyroidism - meds since age 13 years old (1953). Denies: Hx Diabetes Mellitus Type 1, Hx Graves' Disease, Hx Hyperthyroidism Renal/ Medical History: Denies: Hx End Stage Renal Disease, Hx Kidney Stones, Hx Ovarian Cysts, Hx Peritoneal Dialysis, Hx Pelvic Inflammatory Disease Malignancy Medical History: Denies: Hx Breast Cancer, Hx Cervical Cancer, Hx Leukemia, Hx Lung Cancer, Hx Ovarian Cancer GI Medical History: Denies: Hx Crohn's Disease, Hx Gastroesophageal Reflux Disease, Hx Hiatal Hernia, Hx Irritable Bowel, Hx Liver Failure, Hx Pancreatitis , Hx Ulcer Musculoskeletal Medical History: Reports Hx Arthritis, Denies Hx Fibromyalgia, Denies Hx Muscular Dystrophy Traumatic Medical History: Reports: Hx Fractures - RT elbow & RT arm ? ulna vs radius, denies surgery Infectious Medical History: Denies: Hx HIV Past Surgical History: Reports: Hx Section - 1977, Hx Cholecystectomy - lap 2013, Hx Orthopedic Surgery - bilat knee replacement, Hx Thyroid Surgery. Denies: Hx Appendectomy, Hx Bowel Surgery, Hx Colostomy, Hx Coronary Artery Bypass Graft, Hx Gastric Bypass Surgery, Hx Herniorrhaphy, Hx Hysterectomy, Hx Mastectomy, Hx Pacemaker, Hx Tonsillectomy, Hx Tubal Ligation - Immunizations Hx Diphtheria, Pertussis, Tetanus Vaccination: Yes - 2001 Hx Pneumococcal Vaccination: 11/23/11 Review of Systems - Review of Systems -: Yes All other systems reviewed and negative Physical Exam - Vital signs Vitals: Pulse Ox 99 10/11/18 09:14 - Notes Notes: PHYSICAL EXAMINATION: GENERAL: Well-appearing, well-nourished and in no acute distress. A&Ox4. Answers questions appropriately. Moves comfortably w/o notable distress HEAD: Atraumatic, normocephalic. EYES: Pupils equal round and reactive to light, extraocular movements intact, sclera anicteric, conjunctiva are normal. ENT: EAC clear b/l. TM's intact b/l without erythema, fluid, or perforation. Nares patent and with clear discharge. oropharynx no erythema without exudates. No tonsilar hypertrophy without erythema or exudate. No palatine shift. Uvula midline. No tongue protrusion. No drooling, hoarseness, or airway compromise. Moist mucous membranes. No sinus tenderness. NECK: Normal range of motion, supple without lymphadenopathy. No rigidity/ meningismus. LUNGS: Scant rhonchi b/l. No wheezes or retractions HEART: Regular rate and rhythm without murmurs, rubs, gallops. ABDOMEN: Soft, nontender, nondistended abdomen. No guarding, no rebound. No masses appreciated. Normal bowel sounds present. No CVA tenderness bilaterally. No hepatosplenomegaly. MS: + minimal to no erythema to the MTP jt rt foot. + tenderness to light touch. No fluctuance, streaks, purulence. No other bony tenderness to the LE. Ext: Trace to 1+ pitting edema b/l LE's. Peripheral pulses 2+ b/l. NEUROLOGICAL: Normal speech, normal gait. Normal sensory, motor exams PSYCH: Normal mood, normal affect. SKIN: see above. Course - Re-evaluation Re-evalutation: 10/11/18 11:51 Patient is an afebrile, well-hydrated 78-year-old female who presents to the ED with an acute exacerbation of her CHF, probable URI/viral illness, and gout flareup to her right MTP. Vitals currently acceptable. PE is otherwise unremarkable. Patient is nontoxic-appearing and is tolerating p.o. without difficulty. Patient was given Lasix 20 mg IV as well as 1 breathing treatment. Chest x-ray was acceptable. CBC and CMP as well as her cardiac enzymes/EKG were unremarkable. BNP was significantly higher than her normal baseline at 3530. Influenza was negative. Urinalysis is pending, but will not change course of treatment. I did speak with Dr. Zendejas who accepted patient for admit. - Vital Signs Vital signs: Temp Pulse Resp BP Pulse Ox 98.0 F 97 18 149/83 H 95 10/11/18 09:15 10/11/18 09:15 10/11/18 09:15 10/11/18 09:15 10/11/18 09:15 - Laboratory Result Diagrams: 10/11/18 08:35 10/11/18 08:35 Laboratory results interpreted by me: 10/11/18 10/11/18 10/11/18 08:35 08:35 08:35 WBC 12.9 H RDW 15.6 H Monocytes % 13.3 H Absolute Neutrophils 9.1 H Absolute Monocytes 1.7 H BUN 23 H Glucose 185 H Direct Bilirubin 0.6 H NT-Pro-B Natriuret Pep 3530 H Discharge - Discharge Clinical Impression: Acute URI CHF exacerbation Qualifiers: Heart failure type: unspecified Qualified Code(s): I50.9 - Heart failure, unspecified Gout Qualifiers: Gout site: toe Gout etiology: unspecified cause Chronicity: acute Laterality: right Qualified Code(s): M10.9 - Gout, unspecified Condition: Stable Disposition: ADMITTED INPATIENT Admitting Provider: Hospitalist - Dr. Zendejas Unit Admitted: Telemetry Referrals: NEGRITA MAI DO [Primary Care Provider] - Follow up as needed
[2018-10-11] MEDS ORDERED: IPRATROPIUM/ALBUTEROL 0.5-2.5 MG/3 ML AMPUL NEB ONE (09:23)
[2018-10-11 09:27] LABS: ABSOLUTE LYMPHOCYTES (AUTO) 2.1 10^3/uL (0.5-4.7); ABSOLUTE MONOCYTES (AUTO) 1.7 10^3/uL (0.1-1.4); ABSOLUTE NEUT (AUTO) 9.1 10^3/uL (1.7-8.2); BASOPHILS % (AUTO) 0.2 % (0-2); HEMATOCRIT 36.4 % (36.0-47.0); HEMOGLOBIN 12.2 g/dL (12.0-15.5); LYMPHOCYTES % (AUTO) 16.2 % (13-45); MEAN CORPUSCULAR HEMOGLOBIN 30.7 pg (27.0-33.4); MEAN CORPUSCULAR HGB CONC 33.4 g/dL (32.0-36.0); MEAN CORPUSCULAR VOLUME 92 fl (80-97); MONOCYTES % (AUTO) 13.3 % (3-13); PLATELET COUNT 213 10^3/uL (150-450); RED BLOOD COUNT 3.96 10^6/uL (3.72-5.28); RED CELL DISTRIBUTION WIDTH 15.6 % (11.5-14.0); SEGMENTED NEUTROPHILS % (AUTO) 70.3 % (42-78); TOTAL CELLS COUNTED % (AUTO) 100 %; WHITE BLOOD COUNT 12.9 10^3/uL (4.0-10.5)
[2018-10-11 09:29] LABS: INTERNATIONAL RATION (INR) 1.12
[2018-10-11 09:33] LABS: ALANINE AMINOTRANSFERASE 10 U/L (9-52); ALKALINE PHOSPHATASE 76 U/L (38-126); ANION GAP 13 (5-19); ASPARTATE AMINO TRANSFERASE 21 U/L (14-36); BILIRUBIN,DIRECT 0.6 mg/dL (0.0-0.4); BILIRUBIN,TOTAL 1.2 mg/dL (0.2-1.3); BLOOD UREA NITROGEN 23 mg/dL (7-20); CALCIUM 9.4 mg/dL (8.4-10.2); CARBON DIOXIDE 27 mmol/L (22-30); CHLORIDE 103 mmol/L (98-107); CREATINE KINASE 56 U/L (30-135); GLUCOSE 185 mg/dL (75-110); POTASSIUM 4.6 mmol/L (3.6-5.0); SODIUM 143.4 mmol/L (137-145); TOTAL PROTEIN 7.5 g/dL (6.3-8.2)
[2018-10-11 09:46] LABS: CREATINE KINASE MB 0.83 ng/mL (<4.55); TROPONIN I 0.019 ng/mL
--- NOTE | 2018-10-11 10:21 | RADIOLOGY REPORT (SQ) ---
EXAM DESCRIPTION: CHEST SINGLE VIEW COMPLETED DATE/TIME: 10/11/2018 9:43 am REASON FOR STUDY: cough COMPARISON: Chest x-ray dated 03/19/2018 and 10/08/2010. Chest CT dated 09/28/2015. EXAM PARAMETERS: NUMBER OF VIEWS: One view. TECHNIQUE: Single frontal radiographic view of the chest acquired. RADIATION DOSE: NA LIMITATIONS: None. FINDINGS: LUNGS AND PLEURA: No opacities, masses or pneumothorax. No pleural effusion. MEDIASTINUM AND HILAR STRUCTURES: Chronic fullness in the right paratracheal region. This is due to ectatic vessels seen on CT. HEART AND VASCULAR STRUCTURES: Mild cardiomegaly. Normal vasculature. BONES: No acute findings. Severe chronic degenerative changes in the shoulders. HARDWARE: None in the chest. OTHER: No other significant finding. IMPRESSION: STABLE MILD CARDIOMEGALY AND OTHER CHRONIC CHANGES. NO ACUTE RADIOGRAPHIC FINDING IN TH E CHEST. TECHNICAL DOCUMENTATION: JOB ID: [id number] [employer]- All Rights Reserved Reading location - IP/workstation name: [email or web address]
[2018-10-11] MEDS ORDERED: FUROSEMIDE INJ/PF 20 MG/2 ML SDV IV ONE (10:48)
[2018-10-11 11:34] LABS: A TYPE INFLUENZA AG NEGATIVE (NEGATIVE); B INFLUENZA AG NEGATIVE (NEGATIVE)
[2018-10-11 11:56] LABS: APPEARANCE,URINE CLEAR; BILIRUBIN,URINE NEGATIVE (NEGATIVE); COLOR,URINE YELLOW; GLUCOSE, URINE NEGATIVE (NEGATIVE); KETONES,URINE NEGATIVE (NEGATIVE); LEUKOCYTE ESTERASE,URINE NEGATIVE (NEGATIVE); NITRITE,URINE NEGATIVE (NEGATIVE); PROTEIN,URINE >=500 mg/dL (NEGATIVE); URINE SPECIFIC GRAVITY 1.022; UROBILINOGEN,URINE NEGATIVE mg/dL (<2.0)
[2018-10-11] MEDS ORDERED: ZOLPIDEM TARTRATE 5 MG TABLET PO PRN (12:44)
[2018-10-11] MEDS ORDERED: ONDANSETRON 4 MG TAB.RAPDIS PO PRN (12:44)
[2018-10-11] MEDS ORDERED: MAG HYDROX/AL HYDROX/SIMETH SUSP 30 ML UDCUP PO PRN (12:44)
[2018-10-11] MEDS ORDERED: MAGNESIUM HYDROXIDE SUSP 30 ML UDCUP PO PRN (12:44)
[2018-10-11] MEDS ORDERED: TRAMADOL HCL 50 MG TABLET PO PRN (12:53)
[2018-10-11] MEDS ORDERED: METOPROLOL SUCCINATE 50 MG TAB.SR.24H PO SCH ×2 (13:30→22:00)
[2018-10-11] MEDS ORDERED: LISINOPRIL 10 MG TABLET PO SCH (13:30)
[2018-10-11] MEDS: ONDANSETRON HCL INJ/PF 4 MG/2 ML SDV IV PRN ×2 (14:27→18:32)
[2018-10-11 16:54] LABS: CREATINE KINASE MB 0.74 ng/mL (<4.55); TROPONIN I 0.019 ng/mL
[2018-10-11] MEDS: (PENDING PHARMACY ID) (Metformin Hcl [Metformin Hcl] 1,000 MG) PO SCH (17:59)
[2018-10-11] MEDS ORDERED: LORAZEPAM 0.5 MG TABLET PO SCH (18:00)
[2018-10-11] MEDS: MAGNESIUM OXIDE 400 MG TABLET PO SCH (18:00)
[2018-10-11] MEDS: LANSOPRAZOLE 30 MG TAB.RAP.DR PO SCH (18:00)
[2018-10-11] MEDS: DOCUSATE SODIUM 100 MG CAPSULE PO SCH (18:00)
[2018-10-11] MEDS: RIVAROXABAN 15 MG TABLET PO SCH (18:00)
--- NOTE | 2018-10-11 18:15 | PDOC H&P ---
History of Present Illness Admission Date/PCP: 10/11/18 12:35 NEGRITA MAI DO Patient complains of: Right foot and ankle pain due to gout History of Present Illness: JASMIN CONWAY is a 78 year old female who presented to the emergency room with a 2-day history of right lateral foot and ankle pain due to a flareup of her gout. She admits that she has had numerous prior similar episodes and they are generally relieved by taking colchicine. Her current episode began 2 days ago and she called her doctor's office and a prescription for colchicine was called and and she obtained it and begin taking it however she continued to have worsening pain in the right ankle as the gout did not seem to respond to the colchicine this time. She describes the pain as a severe, constant, throbbing, aching, pressure pain in the lateral aspect of her right foot just below her lateral malleolus radiating up into the ankle joint and then up into distal fibula. The pain is made worse by weightbearing, movement and palpation. She has not identified any ameliorating factors as the colchicine did not seem to help much. Additionally in the emergency room she complained of a 1 day history of nasal congestion with discharge and postnasal drainage accompanied by a nonproductive cough and occasional post tussive emesis when the cough has been paroxysmal. She admits a single episode of mild dyspnea at rest this morning and also agrees that she has had fairly frequent dyspnea with exertion. In the emergency room she had an elevated BNP and despite an otherwise negative evaluation this prompted the request for admission. Patient was admitted for inpatient status primarily due to her severe pain related to her gout and her inability to bear weight creating a very distinct and highly probable possibility that she will sustain an injury due to a fall if she is not hospitalized for pain control. Patient was therefore admitted to hospital on inpatient status for further management of her acute gout as well as her upper respiratory infection and further evaluation or medical treatment adjustment for her chronic congestive heart failure. Past Medical History Cardiac Medical History: Reports: Atrial Fibrillation, Hyperlipidema - meds x 10 years, Hypertension - meds x 50 years Denies: Congestive Heart Failure, Coronary Artery Disease, Myocardial Infarction, Peripheral Vascular Disease, Pulmonary Embolism, Heart Murmur Pulmonary Medical History: Reports: Asthma, Pneumonia - no hospitalization, Sleep Apnea - Dx'ed approx 5 years ago, does NOT use CPAP Denies: Bronchitis, Chronic Obstructive Pulmonary Disease (COPD), Respiratory Failure, Tuberculosis EENT Medical History: Reports: None Neurological Medical History: Denies: Hemorrhagic CVA, Ischemic CVA, Multiple Sclerosis, Seizures Endocrine Medical History: Reports: Diabetes Mellitus Type 2, Hypothyroidism - meds since age 13 years old (3) Denies: Diabetes Mellitus Type 1, Hyperthyroidism Renal/ Medical History: Denies: Chronic Kidney Disease, End Stage Renal Disease, Nephrolithiasis Malignancy Medical History: Denies: Breast Cancer, Cervical Cancer, Leukemia, Lung Cancer, Ovarian Cancer GI Medical History: Denies: Crohn's Disease, Gastroesophageal Reflux Disease, Hiatal Hernia, Peptic Ulcer Disease, Ulcerative Colitis Musculoskeltal Medical History: Reports: Arthritis, Gout Denies: Fibromyalgia Skin Medical History: Denies: Eczema, Psoriasis Psychiatric Medical History: Denies: Alcohol Dependency, Substance Abuse, Tobacco Dependency Traumatic Medical History: Denies: Gunshot Wound, Stab Wound, Traumatic Brain Injury Hematology: Reports: Anemia - occ, Bleeding Tendencies - Taking anticoagulants, Other - Bruising tendencies due to taking anticoagulants Denies: Hemophilia, Sickle Cell Disease Infectious Medical History: Denies: Hepatitis C, HIV Past Surgical History Past Surgical History: Reports: Section - 1977, Cholecystectomy - lap 2013, Orthopedic Surgery - bilat knee replacement Denies: Amputation, Appendectomy, Colostomy, Coronary Artery Bypass Graft, Gastric Bypass Surgery, Herniorrhaphy, Hysterectomy, Mastectomy, Pacemaker, Tonsillectomy, Tubal Ligation Social History Smoking Status: Never Smoker Frequency of Alcohol Use: Rare Hx Recreational Drug Use: No Hx Prescription Drug Abuse: No - Advance Directive Resuscitation Status: Full Code Surrogate healthcare decision maker:: Daughter Family History Family History: CAD, DM, Hypertension, Other - Gout Parental Family History Reviewed: Yes Children Family History Reviewed: Yes Sibling(s) Family History Reviewed.: Yes Medication/Allergy Home Medications: Albuterol Sulfate [Proair HFA Inhalation Aerosol 8.5 gm MDI] 2 puff IH Q4HP PRN 03/19/18 Levothyroxine Sodium [Synthroid] 200 mcg PO Q6AM 03/19/18 Lorazepam [Ativan 0.5 mg Tablet] 0.5 mg PO QPM 03/19/18 Metformin HCl 1,000 mg PO BIDBS 03/19/18 Tramadol HCl [Ultram 50 mg Tablet] 50 mg PO QHS 03/19/18 Furosemide [Lasix 20 mg Tablet] 20 mg PO QAM #30 tablet 03/20/18 Magnesium Oxide [Mag-Ox 400 mg Tablet] 400 mg PO BID #0 03/20/18 Carvedilol [Coreg 12.5 mg Tablet] 12.5 mg PO Q12 10/11/18 Colchicine [Colchicine 0.6 mg Tablet] 0.6 mg PO BID MDD filled 10/10 for 3 day supply 10/11/18 Colestipol HCl [Colestid 1 gm Tablet] 2 gm PO Q12 10/11/18 Isosorbide Mononitrate [Imdur 30 mg Tablet.er] 30 mg PO DAILY 10/11/18 Lisinopril [Prinivil 10 mg Tablet] 10 mg PO DAILY 10/11/18 Metoprolol Tartrate [Lopressor 25 mg Tablet] 12.5 mg PO Q12 10/11/18 Nitroglycerin [Nitrostat 0.4 mg (1/150 Gr) Tabs 25/Bottle] 1 tab SL Q5MP PRN Ranitidine HCl [Zantac 150 mg Tablet] 150 mg PO BID 10/11/18 Rivaroxaban [Xarelto] 20 mg PO DAILY 10/11/18 Allergies/Adverse Reactions: sulfamethoxazole [From Bactrim] Allergy (Severe, Verified 01/09/16 14:51) rash, "mad itch" trimethoprim [From Bactrim] Allergy (Severe, Verified 01/09/16 14:51) rash, "mad itch" Review of Systems Constitutional: ABSENT: chills, fever(s) Eyes: ABSENT: visual disturbances, other - Ocular pain Ears: ABSENT: hearing changes, other - Ear pain Nose, Mouth, and Throat: PRESENT: other - Rhinorrhea and postnasal discharge with nasal congestion.. ABSENT: mouth pain, sore throat Cardiovascular: PRESENT: dyspnea on exertion, edema. ABSENT: chest pain, orthropnea, palpitations Respiratory: PRESENT: cough, dyspnea. ABSENT: hemoptysis, sputum Gastrointestinal: PRESENT: diarrhea - Chronic. ABSENT: abdominal pain, hematemesis, hematochezia, melena, nausea, vomiting Genitourinary: ABSENT: dysuria, hematuria Musculoskeletal: PRESENT: other - Joint pain right ankle lateral malleolus. ABSENT: deformity, joint swelling Integumentary: ABSENT: pruritus, rash Neurological: ABSENT: confusion, convulsions, memory loss, tremor(s) Psychiatric: ABSENT: anxiety, depression Endocrine: ABSENT: cold intolerance, heat intolerance Hematologic/Lymphatic: PRESENT: easy bleeding, easy bruising Allergic/Immunologic: ABSENT: seasonal rhinorrhea, other - Insect bite allergy Physical Exam Vital Signs: Temp Pulse Resp BP Pulse Ox 98.1 F 82 20 157/103 H 97 10/11/18 16:27 10/11/18 16:27 10/11/18 16:27 10/11/18 16:27 10/11/18 16:27 Intake & Output 10/09/18 10/10/18 10/11/18 23:59 23:59 23:59 Output Total 600 Balance -600 Weight 91.2 kg General appearance: PRESENT: no acute distress, cooperative, morbidly obese Head exam: PRESENT: atraumatic, normocephalic Eye exam: PRESENT: conjunctiva pink, EOMI Ear exam: PRESENT: normal external ear exam. ABSENT: bleeding, drainage Mouth exam: PRESENT: neck supple, other - Oral mucosa is moist with no pathological lesions noted. Neck exam: ABSENT: JVD, thyromegaly, tracheal deviation Respiratory exam: PRESENT: clear to auscultation alfreda, symmetrical, unlabored. ABSENT: crackles, decreased breath sounds, prolonged expiratory phas, rales, rhonchi, wheezes Cardiovascular exam: PRESENT: irregular rhythm. ABSENT: bradycardia, clicks, diastolic murmur, gallop, rubs, systolic murmur, tachycardia Pulses: PRESENT: normal radial pulses, normal dorsalis pedis pul Vascular exam: PRESENT: normal capillary refill. ABSENT: pallor GI/Abdominal exam: PRESENT: normal bowel sounds, soft. ABSENT: distended, tenderness Rectal exam: PRESENT: deferred Extremities exam: PRESENT: pedal edema - Trace bipedal edema, +1 edema - Trace to 1+ pretibial edema. ABSENT: joint swelling Musculoskeletal exam: PRESENT: tenderness - Right lateral ankle and foot, other - Decreased range of motion right ankle secondary to pain in the lateral malleolus.. ABSENT: deformity, dislocation Neurological exam: PRESENT: alert, oriented to person, oriented to place, oriented to time, oriented to situation, CN II-XII grossly intact. ABSENT: motor sensory deficit Psychiatric exam: PRESENT: appropriate affect, normal mood Skin exam: PRESENT: dry, intact, warm. ABSENT: jaundice, rash, urticaria Results Laboratory Results: 10/11/18 10/11/18 15:50 15:50 Creatine Kinase 54 CK-MB (CK-2) 0.74 Troponin I 0.019 Impressions: Chest X-Ray 10/11/18 09:14 IMPRESSION: STABLE MILD CARDIOMEGALY AND OTHER CHRONIC CHANGES. NO ACUTE RADIOGRAPHIC FINDING IN THE CHEST. Assessment & Plan - Diagnosis (1) Acute gout Qualifiers: Gout site: ankle Gout etiology: unspecified cause Laterality: right Qualified Code(s): M10.9 - Gout, unspecified Is this a current diagnosis for this admission?: Yes Plan: Patient will be treated with Toradol 15 mg IV every 6 hours for up to 12 doses for pain control as well as IV morphine 1-3 mg every 2 hours as needed for breakthrough pain control. She will also be given colchicine to which she has responded in the past. With her history of chronic diarrhea she will require close observation is to her endpoint for colchicine therapy. (2) Acute nasopharyngitis Is this a current diagnosis for this admission?: Yes Plan: Patient will be treated symptomatically and supportively for her upper respiratory infection. (3) Atrial fibrillation Qualifiers: Atrial fibrillation type: unspecified Qualified Code(s): I48.91 - Unspecified atrial fibrillation Is this a current diagnosis for this admission?: Yes Plan: Patient will be maintained on her current medications for rate control and anticoagulation/embolic prevention. (4) Congestive heart failure (CHF) Qualifiers: Heart failure type: diastolic Heart failure chronicity: chronic Qualified Code(s): I50.32 - Chronic diastolic (congestive) heart failure Is this a current diagnosis for this admission?: Yes Plan: Patient will be continued on her current medications for heart failure although her beta-blockade will be amended as her blood pressure is somewhat uncontrolled and her heart rate is not reflective of adequate beta-chino therapy I start metoprolol succinate at a dose of 200 mg daily to provide better control of her congestive heart failure as well as her hypertension and atrial fibrillation. - Time Time Spent: 50 to 70 Minutes Medications reviewed and adjusted accordingly: Yes Anticipated discharge: Home Within: within 72 hours - Inpatient Certification Based on my medical assessment, after consideration of the patient's comorbidities, presenting symptoms, or acuity I expect that the services needed warrant INPATIENT care.: Yes I certify that my determination is in accordance with my understanding of Medicare's requirements for reasonable and necessary INPATIENT services [42 CFR 412.3e].: Yes Medical Necessity: Failure to Improve With Outpatient Therapy, Significant Comorbidiites Make Outpatient Treatment Too Risky, Need for Pain Control
[2018-10-11] MEDS ORDERED: MORPHINE SULFATE 10 MG/ML INJ IV PRN ×3 (18:17)
[2018-10-11] MEDS: NYSTATIN TOPICAL POWDER 15 GM TOP SCH (18:28)
[2018-10-11] MEDS: COLCHICINE 0.6 MG TABLET PO SCH (21:34)
[2018-10-11] MEDS: LISINOPRIL 10 MG TABLET PO SCH (21:34)
[2018-10-11] MEDS: METOPROLOL SUCCINATE 50 MG TAB.SR.24H PO SCH (21:35)
[2018-10-11] MEDS: LORAZEPAM 0.5 MG TABLET PO SCH (21:36)
--- NOTE | 2018-10-11 21:59 | EKG REPORT ---
SEVERITY:- ABNORMAL ECG - ATRIAL FIBRILLATION, V-RATE 72-126 LEFT ANTERIOR FASCICULAR BLOCK BORDERLINE R WAVE PROGRESSION, ANTERIOR LEADS BORDERLINE PROLONGED QT INTERVAL : Confirmed by: Deanna White MD 11-Oct-2018 21:58:26
[2018-10-11 22:07] LABS: CREATINE KINASE MB 0.85 ng/mL (<4.55); TROPONIN I 0.04 ng/mL
[2018-10-12] MEDS: KETOROLAC TROMETHAMINE INJ/PF 30 MG/1 ML SDV IV SCH ×5 (02:12→23:33)
[2018-10-12 04:02] LABS: ABSOLUTE BASOPHILS # (AUTO) 0.1 10^3/uL (0.0-0.2); ABSOLUTE LYMPHOCYTES (AUTO) 1.6 10^3/uL (0.5-4.7); ABSOLUTE MONOCYTES (AUTO) 1.2 10^3/uL (0.1-1.4); ABSOLUTE NEUT (AUTO) 7.9 10^3/uL (1.7-8.2); BASOPHILS % (AUTO) 0.5 % (0-2); EOSINOPHILS % (AUTO) 0.1 % (0-6); HEMATOCRIT 35.6 % (36.0-47.0); HEMOGLOBIN 11.7 g/dL (12.0-15.5); LYMPHOCYTES % (AUTO) 15.1 % (13-45); MEAN CORPUSCULAR HEMOGLOBIN 30.4 pg (27.0-33.4); MEAN CORPUSCULAR VOLUME 92 fl (80-97); PLATELET COUNT 206 10^3/uL (150-450); RED BLOOD COUNT 3.86 10^6/uL (3.72-5.28); RED CELL DISTRIBUTION WIDTH 15.6 % (11.5-14.0); SEGMENTED NEUTROPHILS % (AUTO) 73.3 % (42-78); TOTAL CELLS COUNTED % (AUTO) 100 %; WHITE BLOOD COUNT 10.8 10^3/uL (4.0-10.5)
[2018-10-12 04:23] LABS: ANION GAP 12 (5-19); BLOOD UREA NITROGEN 30 mg/dL (7-20); CALCIUM 8.8 mg/dL (8.4-10.2); CARBON DIOXIDE 27 mmol/L (22-30); CHLORIDE 103 mmol/L (98-107); CHOLESTEROL 170.78 mg/dL (0-200); GLUCOSE 165 mg/dL (75-110); POTASSIUM 4.5 mmol/L (3.6-5.0); SODIUM 141.9 mmol/L (137-145); TRIGLYCERIDES 140 mg/dL (<150)
[2018-10-12 04:34] LABS: DIRECT LDL 102 mg/dL (<100)
[2018-10-12 04:37] LABS: CREATINE KINASE MB 0.88 ng/mL (<4.55); TROPONIN I 0.028 ng/mL
[2018-10-12 04:40] LABS: FREE T3 1.52 pg/mL (2.77-5.27); FREE T4 (FREE THYROXINE) 1.19 ng/dL (0.78-2.19)
[2018-10-12 04:53] LABS: THYROID STIMULATING HORMONE 4.38 uIU/mL (0.47-4.68)
[2018-10-12] MEDS: LANSOPRAZOLE 30 MG TAB.RAP.DR PO SCH (06:19)
[2018-10-12] MEDS: LEVOTHYROXINE SODIUM 0.1 MG TABLET PO SCH (06:19)
[2018-10-12] MEDS: ONDANSETRON HCL INJ/PF 4 MG/2 ML SDV IV PRN ×3 (08:01→21:05)
[2018-10-12 09:31] LABS: APPEARANCE,URINE CLOUDY; BILIRUBIN,URINE NEGATIVE (NEGATIVE); COLOR,URINE AMBER; GLUCOSE, URINE NEGATIVE (NEGATIVE); KETONES,URINE NEGATIVE (NEGATIVE); LEUKOCYTE ESTERASE,URINE LARGE (NEGATIVE); NITRITE,URINE NEGATIVE (NEGATIVE); PROTEIN,URINE 100 mg/dL (NEGATIVE); URINE SPECIFIC GRAVITY 1.026; UROBILINOGEN,URINE NEGATIVE mg/dL (<2.0)
[2018-10-12] MEDS ORDERED: PANTOPRAZOLE SODIUM 40 MG VIAL IV ONE (11:00)
[2018-10-12] MEDS: FUROSEMIDE 20 MG TABLET PO SCH (11:08)
[2018-10-12] MEDS: COLCHICINE 0.6 MG TABLET PO SCH ×2 (11:09→21:06)
[2018-10-12] MEDS: SPIRONOLACTONE 25 MG TABLET PO SCH (11:09)
[2018-10-12] MEDS: DOCUSATE SODIUM 100 MG CAPSULE PO SCH ×2 (11:16→17:54)
[2018-10-12] MEDS: MAGNESIUM OXIDE 400 MG TABLET PO SCH ×2 (11:17→17:54)
[2018-10-12] MEDS: NYSTATIN TOPICAL POWDER 15 GM TOP SCH ×3 (11:17→19:43)
[2018-10-12] MEDS: PREDNISONE 20 MG TABLET PO SCH ×2 (11:17→17:50)
--- NOTE | 2018-10-12 15:48 | EKG REPORT ---
SEVERITY:- ABNORMAL ECG - ATRIAL FIBRILLATION, V-RATE 68-118 LEFT ANTERIOR FASCICULAR BLOCK CONSIDER ANTEROSEPTAL INFARCT BORDERLINE T ABNORMALITIES, INFERIOR LEADS : Confirmed by: Deanna White MD 12-Oct-2018 15:46:20
--- NOTE | 2018-10-12 16:24 | PDOC PROGRESS REPORT ---
Subjective Progress Note for:: 10/12/18 Subjective:: Assumed care today. Ms. Kumari is a 78 yr old female with a PMH of AFib on Eliquis , gout, hyperlipidemia, and HTN who was admitted due to intractable right ankle pain deemed likely from another gout attack. No acute event overnight. Patient this morning complains that she still has ankle pain albeit slightly improved from yesterday. Appears she was not started on steroids upon admission. She denies chest pain, shortness of breath, palpitations or any other acute complaint. Reason For Visit: ACUTE ELEVATION OF BNP,ACUTE GOUT,URI Physical Exam Vital Signs: Temp Pulse Resp BP Pulse Ox 98.6 F 106 H 17 154/113 H 96 10/11/18 23:49 10/12/18 11:58 10/11/18 23:49 10/12/18 11:58 10/11/18 23:49 Intake & Output 10/11/18 10/12/18 10/13/18 06:59 06:59 06:59 Intake Total 300 Output Total 600 Balance -300 Weight 201 lb 4.513 oz General appearance: PRESENT: no acute distress, well-developed, well-nourished Head exam: PRESENT: atraumatic, normocephalic Eye exam: PRESENT: conjunctiva pink, EOMI, PERRLA. ABSENT: scleral icterus Ear exam: PRESENT: normal external ear exam Mouth exam: PRESENT: moist, tongue midline Neck exam: ABSENT: carotid bruit, JVD, lymphadenopathy, thyromegaly Respiratory exam: PRESENT: clear to auscultation alfreda. ABSENT: rales, rhonchi, wheezes Cardiovascular exam: PRESENT: RRR. ABSENT: diastolic murmur, rubs, systolic murmur Pulses: PRESENT: normal dorsalis pedis pul GI/Abdominal exam: PRESENT: normal bowel sounds, soft. ABSENT: distended, guarding, mass, organolmegaly, rebound, tenderness Rectal exam: PRESENT: deferred Extremities exam: PRESENT: other - tenderness noted on palpation of the right ankle, minimal swelling with no erythema or warmth Neurological exam: PRESENT: alert, awake, oriented to person, oriented to place , oriented to time, oriented to situation, CN II-XII grossly intact. ABSENT: motor sensory deficit Results Laboratory Results: 10/12/18 03:47 10/12/18 03:43 10/12/18 10/12/18 10/12/18 03:43 03:43 03:47 WBC 10.8 H RBC 3.86 Hgb 11.7 L Hct 35.6 L MCV 92 MCH 30.4 MCHC 33.0 RDW 15.6 H Plt Count 206 Seg Neutrophils % 73.3 Lymphocytes % 15.1 Monocytes % 11.0 Eosinophils % 0.1 Basophils % 0.5 Absolute Neutrophils 7.9 Absolute Lymphocytes 1.6 Absolute Monocytes 1.2 Absolute Eosinophils 0.0 Absolute Basophils 0.1 Sodium 141.9 Potassium 4.5 Chloride 103 Carbon Dioxide 27 Anion Gap 12 BUN 30 H Creatinine 0.96 Est GFR ( Amer) > 60 Est GFR (Non-Af Amer) 56 L Glucose 165 H Calcium 8.8 Magnesium 2.0 Triglycerides 140 Cholesterol 170.78 LDL Cholesterol Direct 102 H VLDL Cholesterol 28.0 HDL Cholesterol 49 TSH 4.38 Free T4 1.19 Free T3 pg/mL 1.52 L Urine Color Urine Appearance Urine pH Ur Specific [place] Urine Protein Urine Glucose (UA) Urine Ketones Urine Blood Urine Nitrite Ur Leukocyte Esterase Urine WBC (Auto) Urine RBC (Auto) 10/12/18 07:25 WBC RBC Hgb Hct MCV MCH MCHC RDW Plt Count Seg Neutrophils % Lymphocytes % Monocytes % Eosinophils % Basophils % Absolute Neutrophils Absolute Lymphocytes Absolute Monocytes Absolute Eosinophils Absolute Basophils Sodium Potassium Chloride Carbon Dioxide Anion Gap BUN Creatinine Est GFR ( Amer) Est GFR (Non-Af Amer) Glucose Calcium Magnesium Triglycerides Cholesterol LDL Cholesterol Direct VLDL Cholesterol HDL Cholesterol TSH Free T4 Free T3 pg/mL Urine Color BRIAN Urine Appearance CLOUDY Urine pH 5.0 Ur Specific [place] 1.026 Urine Protein 100 H Urine Glucose (UA) NEGATIVE Urine Ketones NEGATIVE Urine Blood NEGATIVE Urine Nitrite NEGATIVE Ur Leukocyte Esterase LARGE H Urine WBC (Auto) 80 Urine RBC (Auto) 8 10/11/18 10/11/18 10/11/18 15:50 15:50 21:30 Creatine Kinase 54 53 CK-MB (CK-2) 0.74 Troponin I 0.019 10/11/18 10/12/18 10/12/18 21:30 03:43 03:47 Creatine Kinase 53 CK-MB (CK-2) 0.85 0.88 Troponin I 0.040 0.028 Impressions: Chest X-Ray 10/11/18 09:14 IMPRESSION: STABLE MILD CARDIOMEGALY AND OTHER CHRONIC CHANGES. NO ACUTE RADIOGRAPHIC FINDING IN THE CHEST. Assessment & Plan - Diagnosis (1) Acute gout Qualifiers: Gout site: ankle Gout etiology: unspecified cause Laterality: right Qualified Code(s): M10.9 - Gout, unspecified Is this a current diagnosis for this admission?: Yes Plan: Patient is on colchicine. Will add prednisone today. (2) Chronic atrial fibrillation Is this a current diagnosis for this admission?: Yes Plan: Rate-controlled. On rivaroxaban and lopressor. - Time Time Spent with patient: 15-24 minutes
[2018-10-12] MEDS: ALBUTEROL SULFATE HFA (90 MCG/PUFF) 200 PUFF/8.5 GM MDI IH PRN ×2 (16:40→23:47)
[2018-10-12] MEDS ORDERED: METFORMIN HCL 500 MG TABLET PO SCH (17:00)
[2018-10-12] MEDS: RIVAROXABAN 15 MG TABLET PO SCH (17:54)
[2018-10-12] MEDS: LORAZEPAM 0.5 MG TABLET PO SCH (21:06)
[2018-10-12] MEDS: METOPROLOL SUCCINATE 50 MG TAB.SR.24H PO SCH (21:06)
[2018-10-12] MEDS: LISINOPRIL 10 MG TABLET PO SCH (21:11)
[2018-10-12] MEDS: NORMAL SALINE 1000 ML 1,000 ML IV PRN (23:33)
[2018-10-13] MEDS: ALBUTEROL SULFATE HFA (90 MCG/PUFF) 200 PUFF/8.5 GM MDI IH PRN ×2 (04:09→10:05)
[2018-10-13] MEDS: LEVOTHYROXINE SODIUM 0.1 MG TABLET PO SCH (06:35)
[2018-10-13] MEDS: KETOROLAC TROMETHAMINE INJ/PF 30 MG/1 ML SDV IV SCH ×2 (06:35→12:39)
[2018-10-13 07:16] LABS: ABSOLUTE LYMPHOCYTES (AUTO) 1.9 10^3/uL (0.5-4.7); ABSOLUTE NEUT (AUTO) 8.1 10^3/uL (1.7-8.2); BASOPHILS % (AUTO) 0.3 % (0-2); HEMATOCRIT 34.7 % (36.0-47.0); HEMOGLOBIN 11.4 g/dL (12.0-15.5); LYMPHOCYTES % (AUTO) 17.1 % (13-45); MEAN CORPUSCULAR HEMOGLOBIN 29.9 pg (27.0-33.4); MEAN CORPUSCULAR HGB CONC 32.7 g/dL (32.0-36.0); MEAN CORPUSCULAR VOLUME 91 fl (80-97); MONOCYTES % (AUTO) 9.1 % (3-13); PLATELET COUNT 262 10^3/uL (150-450); RED CELL DISTRIBUTION WIDTH 15.3 % (11.5-14.0); SEGMENTED NEUTROPHILS % (AUTO) 73.5 % (42-78); TOTAL CELLS COUNTED % (AUTO) 100 %
[2018-10-13] MEDS: ONDANSETRON HCL INJ/PF 4 MG/2 ML SDV IV PRN (07:35)
[2018-10-13 07:38] LABS: ANION GAP 13 (5-19); BLOOD UREA NITROGEN 33 mg/dL (7-20); CALCIUM 9.1 mg/dL (8.4-10.2); CARBON DIOXIDE 24 mmol/L (22-30); CHLORIDE 105 mmol/L (98-107); GLUCOSE 128 mg/dL (75-110); POTASSIUM 4.6 mmol/L (3.6-5.0); SODIUM 141.5 mmol/L (137-145)
[2018-10-13] MEDS: (PENDING PHARMACY ID) (Metformin Hcl [Metformin Hcl] 1,000 MG) PO SCH (07:49)
[2018-10-13] MEDS: DOCUSATE SODIUM 100 MG CAPSULE PO SCH (10:05)
[2018-10-13] MEDS: SPIRONOLACTONE 25 MG TABLET PO SCH (10:05)
[2018-10-13] MEDS: FUROSEMIDE 20 MG TABLET PO SCH (10:05)
[2018-10-13] MEDS: MAGNESIUM OXIDE 400 MG TABLET PO SCH (10:06)
[2018-10-13] MEDS: PREDNISONE 20 MG TABLET PO SCH (10:06)
[2018-10-13] MEDS: COLCHICINE 0.6 MG TABLET PO SCH (10:06)
[2018-10-13] MEDS: NYSTATIN TOPICAL POWDER 15 GM TOP SCH ×2 (10:07→13:09)
[2018-10-13] MEDS: NORMAL SALINE 1000 ML 1,000 ML IV PRN (10:07)
[2018-10-13 11:40] VITALS: BP 152/86
[2018-10-13] MEDS ORDERED: ONDANSETRON HCL INJ/PF 4 MG/2 ML SDV IV PRN (13:00)
[2018-10-13] MEDS ORDERED: ONDANSETRON 4 MG TAB.RAPDIS PO PRN (13:00)
--- NOTE | 2018-10-13 18:31 | PDOC DISCHARGE SUMMARY ---
General - Admit/Disc Date/PCP Admission Date/Primary Care Provider: 10/11/18 12:35 NEGRITA MAI, Discharge Date: 10/13/18 - Discharge Diagnosis (1) Acute gout Is this a current diagnosis for this admission?: Yes (2) Chronic atrial fibrillation Is this a current diagnosis for this admission?: Yes - Additional Information Resuscitation Status: Full Code Discharge Diet: Cardiac Discharge Activity: Activity As Tolerated, Balance Activity w/Rest, Weigh Daily Prescriptions: Colchicine [Colchicine 0.6 mg Tablet] 0.6 mg PO BID #10 tablet MDD filled 10/10 for 3 day supply Metoprolol Succinate [[place]sp[place] Sprinkle] 200 mg PO QHS #30 cap.spr.24 Ondansetron [Zofran Odt 4 mg Tablet] 4 mg PO Q6HP PRN #8 tab.rapdis PRN Reason: Pantoprazole Sodium [Protonix] 40 mg PO QAM #30 suspdr.pkt Prednisone [Deltasone 20 mg Tablet] 20 mg PO BID 4 Days #8 tablet Spironolactone [Aldactone 25 mg Tablet] 25 mg PO DAILY #30 tablet Home Medications: Albuterol Sulfate [Proair HFA Inhalation Aerosol 8.5 gm MDI] 2 puff IH Q4HP PRN 03/19/18 Levothyroxine Sodium [Synthroid] 200 mcg PO Q6AM 03/19/18 Lorazepam [Ativan 0.5 mg Tablet] 0.5 mg PO QPM 03/19/18 Metformin HCl 1,000 mg PO BIDBS 03/19/18 Tramadol HCl [Ultram 50 mg Tablet] 50 mg PO QHS 03/19/18 Furosemide [Lasix 20 mg Tablet] 20 mg PO QAM #30 tablet 03/20/18 Magnesium Oxide [Mag-Ox 400 mg Tablet] 400 mg PO BID #0 03/20/18 Colestipol HCl [Colestid 1 gm Tablet] 2 gm PO Q12 10/11/18 Isosorbide Mononitrate [Imdur 30 mg Tablet.er] 30 mg PO DAILY 10/11/18 Lisinopril [Prinivil 10 mg Tablet] 10 mg PO DAILY 10/11/18 Nitroglycerin [Nitrostat 0.4 mg (1/150 Gr) Tabs 25/Bottle] 1 tab SL Q5MP PRN Ranitidine HCl [Zantac 150 mg Tablet] 150 mg PO BID 10/11/18 Rivaroxaban [Xarelto] 20 mg PO DAILY 10/11/18 Colchicine [Colchicine 0.6 mg Tablet] 0.6 mg PO BID #10 tablet MDD filled 10/10 for 3 day supply 10/13/18 Lisinopril [Prinivil 10 mg Tablet] 10 mg PO QHS tablet 10/13/18 Metoprolol Succinate [[place]sp[place] Sprinkle] 200 mg PO QHS #30 cap.spr.24 10/13/18 Ondansetron [Zofran Odt 4 mg Tablet] 4 mg PO Q6HP PRN #8 tab.rapdis 10/13/18 Pantoprazole Sodium [Protonix] 40 mg PO QAM #30 suspdr.pkt 10/13/18 Prednisone [Deltasone 20 mg Tablet] 20 mg PO BID 4 Days #8 tablet 10/13/18 Rivaroxaban [Xarelto 15 mg Tablet] 15 mg PO WSUPPER tablet 10/13/18 Spironolactone [Aldactone 25 mg Tablet] 25 mg PO DAILY #30 tablet 10/13/18 History of Present Illness History of Present Illness: JASMIN CONWAY is a 78 year old female who presented to the emergency room with a 2-day history of right lateral foot and ankle pain due to a flareup of her gout. She admits that she has had numerous prior similar episodes and they are generally relieved by taking colchicine. Her current episode began 2 days ago and she called her doctor's office and a prescription for colchicine was called and and she obtained it and begin taking it however she continued to have worsening pain in the right ankle as the gout did not seem to respond to the colchicine this time. She describes the pain as a severe, constant, throbbing, aching, pressure pain in the lateral aspect of her right foot just below her lateral malleolus radiating up into the ankle joint and then up into distal fibula. The pain is made worse by weightbearing, movement and palpation. She has not identified any ameliorating factors as the colchicine did not seem to help much. Patient was admitted for inpatient status primarily due to her severe pain related to her gout and her inability to bear weight creating a very distinct and highly probable possibility that she will sustain an injury due to a fall if she is not hospitalized for pain control. Hospital Course Hospital Course: Ms. Conway is a 78 yr old female with a PMH of AFib on Eliquis, gout, hyperlipidemia, and HTN who was admitted due to intractable right ankle pain deemed likely from another gout attack. She was started on steroids and colchicine. Her swelling and tenderness did improve significantly overnight and she felt she was back to her baseline. She was discharged on a short course of prednisone. She will follow with her PCP in a week and will have her uric acid checked and discuss possible initiation of urate-lowering therapy after complete resolution of recent gout attack. Physical Exam Vital Signs: Temp Pulse Resp BP Pulse Ox 98.4 F 82 18 152/86 H 98 10/13/18 11:41 10/13/18 11:41 10/13/18 11:41 10/13/18 11:41 10/13/18 11:41 Intake & Output 10/12/18 10/13/18 10/14/18 06:59 06:59 06:59 Intake Total 311 459 0141 Output Total 600 Balance -517 920 0080 Weight 201 lb 4.513 oz 200 lb 2.876 oz General appearance: PRESENT: no acute distress, well-developed, well-nourished Head exam: PRESENT: atraumatic, normocephalic Eye exam: PRESENT: conjunctiva pink, EOMI, PERRLA. ABSENT: scleral icterus Ear exam: PRESENT: normal external ear exam Mouth exam: PRESENT: moist, tongue midline Neck exam: ABSENT: carotid bruit, JVD, lymphadenopathy, thyromegaly Respiratory exam: PRESENT: clear to auscultation alfreda. ABSENT: rales, rhonchi, wheezes Cardiovascular exam: PRESENT: RRR. ABSENT: diastolic murmur, rubs, systolic murmur Vascular exam: PRESENT: normal capillary refill GI/Abdominal exam: PRESENT: normal bowel sounds, soft. ABSENT: distended, guarding, mass, organolmegaly, rebound, tenderness Rectal exam: PRESENT: deferred Extremities exam: PRESENT: other - significantly improved swelling of right ankle with no erythema or tenderness Neurological exam: PRESENT: alert, awake, oriented to person, oriented to place , oriented to time, oriented to situation, CN II-XII grossly intact. ABSENT: motor sensory deficit Results Laboratory Results: 10/13/18 06:57 10/13/18 06:57 10/13/18 10/13/18 06:57 06:57 WBC 11.0 H RBC 3.80 Hgb 11.4 L Hct 34.7 L MCV 91 MCH 29.9 MCHC 32.7 RDW 15.3 H Plt Count 262 Seg Neutrophils % 73.5 Lymphocytes % 17.1 Monocytes % 9.1 Eosinophils % 0.0 Basophils % 0.3 Absolute Neutrophils 8.1 Absolute Lymphocytes 1.9 Absolute Monocytes 1.0 Absolute Eosinophils 0.0 Absolute Basophils 0.0 Sodium 141.5 Potassium 4.6 Chloride 105 Carbon Dioxide 24 Anion Gap 13 BUN 33 H Creatinine 0.90 Est GFR ( Amer) > 60 Est GFR (Non-Af Amer) > 60 Glucose 128 H Calcium 9.1 Magnesium 1.9 10/11/18 10/11/18 10/11/18 15:50 15:50 21:30 Creatine Kinase 54 53 CK-MB (CK-2) 0.74 Troponin I 0.019 10/11/18 10/12/18 10/12/18 21:30 03:43 03:47 Creatine Kinase 53 CK-MB (CK-2) 0.85 0.88 Troponin I 0.040 0.028 Impressions: Chest X-Ray 10/11/18 09:14 IMPRESSION: STABLE MILD CARDIOMEGALY AND OTHER CHRONIC CHANGES. NO ACUTE RADIOGRAPHIC FINDING IN THE CHEST. Qualifiers - * PATIENT BEING DISCHARGED WITH ANY OF THE FOLLOWING DIAGNOSIS: No
== END 2018-10-13 13:12 | disposition home or self-care (01) | DRG 554 ==
LOC: ER 08:52 → EH 12:35 → 5 14:01
PROVIDERS: ADMIT Hospitalist; ATTEND Hospitalist
PROC: 3E0234Z Introduction of Serum, Toxoid and Vaccine into Muscle, Percutaneous Approach (ICD-10-PCS; principal; 2018-10-13)
DX: M10.9 Gout, unspecified (principal); I50.32 Chronic diastolic (congestive) heart failure; I11.0 Hypertensive heart disease with heart failure; I48.2 Chronic atrial fibrillation; J00 Acute nasopharyngitis [common cold]; E11.8 Type 2 diabetes mellitus with unspecified complications; E03.9 Hypothyroidism, unspecified; J45.909 Unspecified asthma, uncomplicated; Z96.653 Presence of artificial knee joint, bilateral; Z79.01 Long term (current) use of anticoagulants; Z23 Encounter for immunization; Z79.84 Long term (current) use of oral hypoglycemic drugs; Z79.51 Long term (current) use of inhaled steroids; Z79.899 Other long term (current) drug therapy
CPT/HCPCS: 36415; 71045; 80048; 80053; 80061; 81001; 82550; 82553; 82962; 83036; 83735; 83880; 84439; 84443; 84481; 84484; 85025; 85610; 87086; 87804; 90471; 90686; 93005; 93010; 94640; 96361; 96374; 96375; 99285; G0008; J1885; J1940; J2405; J3490; J7030; J7512; J7620; S0119; S0164

== ENCOUNTER 2019-06-02 17:19 | Emergency (ER) | payer MEDICARE ==
--- NOTE | 2019-06-02 17:53 | ER Document Report ---
ED Medical Screen (RME) - General Chief Complaint: Leg Pain Stated Complaint: RIGHT LEG SWELLING Time Seen by Provider: 06/02/19 17:47 Primary Care Provider: NEGRITA MAI DO [Primary Care Provider] - Follow up as needed Notes: 79-year-old female presents to ED for complaint of increasing pain in her right ankle. She states she has a history of gout in this area but the pain is much worse than normal. She does have very edematous legs bilaterally. She states she did eat fish which she knows she is not supposed to eat on her gout. She states she went to the primary care doctor because of the increase in pain and he presented to the emergency room to rule out DVT or gout. I have spoken with Dr. Holguin and he stated that the patient's primary care said to rule out DVT that we needed to do the venous Doppler. The venous Doppler was ordered on the right leg. I have greeted and performed a rapid initial assessment of this patient. A comprehensive ED assessment and evaluation of the patient, analysis of test results and completion of medical decision making process will be conducted by an additional ED providers. Dictation of this chart was performed using voice recognition software; t herefore, there may be some unintended grammatical errors. TRAVEL OUTSIDE OF THE [place] IN LAST 30 DAYS: No - Related Data Allergies/Adverse Reactions: sulfamethoxazole [From Bactrim] Allergy (Severe, Verified 01/09/16 14:51) rash, "mad itch" trimethoprim [From Bactrim] Allergy (Severe, Verified 01/09/16 14:51) rash, "mad itch" Past Medical History - Past Medical History Cardiac Medical History: Reports: Hx Atrial Fibrillation, Hx Hypercholesterolemia - meds x 10 years, Hx Hypertension - meds x 50 years Denies: Hx Congestive Heart Failure, Hx Coronary Artery Disease, Hx Heart Attack, Hx Peripheral Vascular Disease, Hx Pulmonary Embolism, Hx Heart Murmur Pulmonary Medical History: Reports: Hx Asthma, Hx Pneumonia - no hospitalization, Hx Sleep Apnea - Dx'ed approx 5 years ago, does NOT use CPAP Denies: Hx Bronchitis, Hx COPD, Hx Respiratory Failure, Hx Tuberculosis Neurological Medical History: Denies: Hx Seizures Endocrine Medical History: Reports: Hx Diabetes Mellitus Type 2, Hx Hypothyroidism - meds since age 13 years old (3). Denies: Hx Diabetes Mellitus Type 1, Hx Graves' Disease, Hx Hyperthyroidism Renal/ Medical History: Denies: Hx End Stage Renal Disease, Hx Kidney Stones, Hx Ovarian Cysts, Hx Peritoneal Dialysis, Hx Pelvic Inflammatory Disease Malignancy Medical History: Denies: Hx Breast Cancer, Hx Cervical Cancer, Hx Leukemia, Hx Lung Cancer, Hx Ovarian Cancer GI Medical History: Denies: Hx Crohn's Disease, Hx Gastroesophageal Reflux Disease, Hx Hiatal Hernia, Hx Irritable Bowel, Hx Liver Failure, Hx Pancreatitis, Hx Ulcer, Hx Ulcerative Colitis Musculoskeltal Medical History: Reports Hx Arthritis, Denies Hx Fibromyalgia, Reports Hx Gout, Denies Hx Muscular Dystrophy, Denies Hx Systemic Lupus Erythematosus Skin Medical History: Denies Hx Eczema, Denies Hx Psoriasis Psychiatric Medical History: Denies: Hx Depression Traumatic Medical History: Reports: Hx Fractures - RT elbow & RT arm ? ulna vs radius, denies surgery. Denies: Hx Gunshot Wound, Hx Traumatic Brain Injury Infectious Medical History: Denies: Hx HIV Past Surgical History: Reports: Hx Section - 1977, Hx Cholecystectomy - lap 2013, Hx Orthopedic Surgery - bilat knee replacement, Hx Thyroid Surgery. Denies: Hx Appendectomy, Hx Bowel Surgery, Hx Colostomy, Hx Coronary Artery Bypass Graft, Hx Gastric Bypass Surgery, Hx Herniorrhaphy, Hx Hysterectomy, Hx Mastectomy, Hx Pacemaker, Hx Tonsillectomy, Hx Tubal Ligation - Immunizations Hx Diphtheria, Pertussis, Tetanus Vaccination: Yes - 2001 Physical Exam - Vital signs Vitals: Temp Pulse Resp BP Pulse Ox 98.6 F 75 24 H 118/66 94 06/02/19 17:23 06/02/19 17:23 06/02/19 17:23 06/02/19 17:23 06/02/19 17:23 Course - Vital Signs Vital signs: Temp Pulse Resp BP Pulse Ox 98.6 F 75 24 H 118/66 94 06/02/19 17:23 06/02/19 17:23 06/02/19 17:23 06/02/19 17:23 06/02/19 17:23 Doctor's Discharge - Discharge Referrals: NEGRITA MAI, [Primary Care Provider] - Follow up as needed
[2019-06-02 18:12] LABS: ABSOLUTE BASOPHILS # (AUTO) 0.1 10^3/uL (0.0-0.2); ABSOLUTE EOSINOPHILS # (AUTO) 0.1 10^3/uL (0.0-0.6); ABSOLUTE LYMPHOCYTES (AUTO) 2.3 10^3/uL (0.5-4.7); BASOPHILS % (AUTO) 0.6 % (0-2); EOSINOPHILS % (AUTO) 0.9 % (0-6); HEMOGLOBIN 9.9 g/dL (12.0-15.5); LYMPHOCYTES % (AUTO) 24.1 % (13-45); MEAN CORPUSCULAR HEMOGLOBIN 29.3 pg (27.0-33.4); MEAN CORPUSCULAR HGB CONC 31.9 g/dL (32.0-36.0); MEAN CORPUSCULAR VOLUME 92 fl (80-97); MONOCYTES % (AUTO) 10.3 % (3-13); PLATELET COUNT 196 10^3/uL (150-450); RED BLOOD COUNT 3.37 10^6/uL (3.72-5.28); RED CELL DISTRIBUTION WIDTH 18.2 % (11.5-14.0); SEGMENTED NEUTROPHILS % (AUTO) 64.1 % (42-78); TOTAL CELLS COUNTED % (AUTO) 100 %; WHITE BLOOD COUNT 9.4 10^3/uL (4.0-10.5)
[2019-06-02 18:30] LABS: ALANINE AMINOTRANSFERASE 11 U/L (9-52); ALBUMIN 3.7 g/dL (3.5-5.0); ALKALINE PHOSPHATASE 63 U/L (38-126); ANION GAP 9 (5-19); ASPARTATE AMINO TRANSFERASE 17 U/L (14-36); BILIRUBIN,DIRECT 0.3 mg/dL (0.0-0.4); BILIRUBIN,TOTAL 0.3 mg/dL (0.2-1.3); BLOOD UREA NITROGEN 22 mg/dL (7-20); CALCIUM 8.6 mg/dL (8.4-10.2); CARBON DIOXIDE 31 mmol/L (22-30); CHLORIDE 101 mmol/L (98-107); GLUCOSE 114 mg/dL (75-110); POTASSIUM 4.4 mmol/L (3.6-5.0); SODIUM 141.4 mmol/L (137-145); TOTAL PROTEIN 6.6 g/dL (6.3-8.2); URIC ACID 7.2 mg/dL (2.5-7.5)
--- NOTE | 2019-06-02 18:45 | RADIOLOGY REPORT (SQ) ---
EXAM DESCRIPTION: ANKLE RIGHT COMPLETE COMPLETED DATE/TIME: 06/02/2019 5:59 pm REASON FOR STUDY: History of gout pain much worse COMPARISON: None. EXAM PARAMETERS: NUMBER OF VIEWS: Four views. TECHNIQUE: AP, lateral and oblique radiographic images acquired of the right ankle. LIMITATIONS: None. FINDINGS: MINERALIZATION: Osteopenia. BONES: No fracture identified. JOINTS: No effusion. SOFT TISSUES: Diffuse soft tissue swelling. No radiopaque foreign body. OTHER: No other significant finding. IMPRESSION: No fracture identified or acute osseous finding. TECHNICAL DOCUMENTATION: JOB ID: [id number] [id number] 2010 [employer]- All Rights Reserved Reading location - IP/workstation name: [employer]
[2019-06-02] MEDS ORDERED: COLCHICINE 0.6 MG TABLET PO ONE ×2 (21:20)
--- NOTE | 2019-06-02 21:50 | RADIOLOGY REPORT (SQ) ---
EXAM DESCRIPTION: Right lower extremity venous Doppler, June 02, 2019 at 7:45 PM local time. CLINICAL HISTORY: pain in ankle COMPARISON: None Available TECHNIQUE: Grayscale, color Doppler, and Doppler interrogation images of the common femoral vein, superficial femoral vein, popliteal veins of the right lower extremity were submitted FINDINGS: All of the above-mentioned venous structures demonstrate normal spontaneous flow with respiratory phasicity and were fully compressible. Posterior tibial vein was not visualized. IMPRESSION: No sonographic evidence of acute DVT within the right lower extremity.
--- NOTE | 2019-06-02 21:59 | ER Document Report ---
ED Extremity Problem, Lower - General Chief Complaint: Leg Pain Stated Complaint: RIGHT LEG SWELLING Time Seen by Provider: 06/02/19 17:47 Primary Care Provider: NEGRITA MAI DO [Primary Care Provider] - Follow up as needed Notes: Patient is a 79-year-old female that comes to the emergency department for chief complaint of right ankle pain. She states she has a history of gout in this same joint, she states she has had this several times, she states that the pain feels the same. She denies injury. She states she had shrimp and scallops and "is paying for it". She denies fever/chills. She denies any other complaints. She states she went to see her primary care provider who sent her to the emergen cy department to rule out DVT. Patient is already on Xarelto for history of atrial fibrillation. She also has a history of hypertension. TRAVEL OUTSIDE OF THE [place] IN LAST 30 DAYS: No - Related Data Allergies/Adverse Reactions: sulfamethoxazole [From Bactrim] Allergy (Severe, Verified 01/09/16 14:51) rash, "mad itch" trimethoprim [From Bactrim] Allergy (Severe, Verified 01/09/16 14:51) rash, "mad itch" Past Medical History - General Information source: Patient - Social History Smoking Status: Never Smoker Frequency of alcohol use: None Drug Abuse: None Lives with: Alone Family History: CAD, DM, Hypertension, Other - Gout Patient has suicidal ideation: No Patient has homicidal ideation: No - Past Medical History Cardiac Medical History: Reports: Hx Atrial Fibrillation, Hx Hypercholesterolemia - meds x 10 years, Hx Hypertension - meds x 50 years Denies: Hx Congestive Heart Failure, Hx Coronary Artery Disease, Hx Heart Attack, Hx Peripheral Vascular Disease, Hx Pulmonary Embolism, Hx Heart Murmur Pulmonary Medical History: Reports: Hx Asthma, Hx Pneumonia - no hospitalization, Hx Sleep Apnea - Dx'ed approx 5 years ago, does NOT use CPAP Denies: Hx Bronchitis, Hx COPD, Hx Respiratory Failure, Hx Tuberculosis Neurological Medical History: Denies: Hx Seizures Endocrine Medical History: Reports: Hx Diabetes Mellitus Type 2, Hx Hypothyro idism - meds since age 13 years old (3). Denies: Hx Diabetes Mellitus Type 1, Hx Graves' Disease, Hx Hyperthyroidism Renal/ Medical History: Denies: Hx End Stage Renal Disease, Hx Kidney Stones, Hx Ovarian Cysts, Hx Peritoneal Dialysis, Hx Pelvic Inflammatory Disease Malignancy Medical History: Denies: Hx Breast Cancer, Hx Cervical Cancer, Hx Leukemia, Hx Lung Cancer, Hx Ovarian Cancer GI Medical History: Denies: Hx Crohn's Disease, Hx Gastroesophageal Reflux Disease, Hx Hiatal Hernia, Hx Irritable Bowel, Hx Liver Failure, Hx Pancreatitis, Hx Ulcer, Hx Ulcerative Colitis Musculoskeletal Medical History: Reports Hx Arthritis, Denies Hx Fibromyalgia, Reports Hx Gout, Denies Hx Muscular Dystrophy, Denies Hx Systemic Lupus Erythematosus Skin Medical History: Denies Hx Eczema, Denies Hx Psoriasis Psychiatric Medical History: Denies: Hx Depression Traumatic Medical History: Reports: Hx Fractures - RT elbow & RT arm ? ulna vs radius, denies surgery. Denies: Hx Gunshot Wound, Hx Traumatic Brain Injury Infectious Medical History: Denies: Hx HIV Past Surgical History: Reports: Hx Section - 1977, Hx Cholecystectomy - lap 2013, Hx Orthopedic Surgery - bilat knee replacement, Hx Thyroid Surgery. Denies: Hx Appendectomy, Hx Bowel Surgery, Hx Colostomy, Hx Coronary Artery Bypass Graft, Hx Gastric Bypass Surgery, Hx Herniorrhaphy, Hx Hysterectomy, Hx Mastectomy, Hx Pacemaker, Hx Tonsillectomy, Hx Tubal Ligation - Immunizations Hx Diphtheria, Pertussis, Tetanus Vaccination: Yes - 2001 Hx Pneumococcal Vaccination: 11/23/11 Review of Systems - Review of Systems Constitutional: No symptoms reported EENT: No symptoms reported Cardiovascular: No symptoms reported Respiratory: No symptoms reported Gastrointestinal: No symptoms reported Genitourinary: No symptoms reported Female Genitourinary: No symptoms reported Musculoskeletal: See HPI Skin: No symptoms reported Hematologic/Lymphatic: No symptoms reported Neurological/Psychological: No symptoms reported Physical Exam - Vital signs Vitals: Temp Pulse Resp BP Pulse Ox 98.6 F 75 24 H 118/66 94 06/02/19 17:23 06/02/19 17:23 06/02/19 17:23 06/02/19 17:23 06/02/19 17:23 - Notes Notes: GENERAL: Alert, interacts well. No acute distress. HEAD: Normocephalic, atraumatic. EYES: Pupils equal, round, and reactive to light. Extraocular movements intact. ENT: Oral mucosa moist, tongue midline. Oropharynx unremarkable. LUNGS: Clear to auscultation bilaterally, no wheezes, rales, or rhonchi. No respiratory distress. HEART: Regular rate and rhythm. No murmur ABDOMEN: Soft, non-tender. Non-distended. EXTREMITIES: Mild bilateral edema. Right ankle is tender and warm but without overt erythema. Patient can still move the ankle. Touching over the area is tender. Patient ambulates with a limp. Normal capillary refill and sensation. Normal extremity exam otherwise. BACK: no cervical, thoracic, lumbar midline tenderness. No saddle anesthesia, normal distal neurovascular exam. Moves all extremities in full range of motion. NEUROLOGICAL: Alert and oriented x3. Normal speech. Cranial nerves II through XII grossly intact. PSYCH: Normal affect, normal mood. SKIN: Warm, dry, normal turgor. No rashes or lesions noted. Course - Re-evaluation Re-evalutation: CBC, chemistry nonspecific. Patient is well-appearing on exam, exam unremarkable except for the right ankle. Patient is demanding to be discharged. She states this is identical to her gout previously, she is requesting colchicine, she was given this here last time with good results. She states that she does not want the prednisone she had last time because this is not as bad as before. Preliminary results for Doppler are negative for DVT, this is expected with her being on Xarelto. Physical examination is not suggestive of septic joint, there is no severe erythema, patient can still move the joint, patient has had this many times before. She will be discharged with follow-up instructions and return precautions. Patient states gratefulness, understanding, agreement. - Vital Signs Vital signs: Temp Pulse Resp BP Pulse Ox 98.0 F 99 19 145/89 H 97 06/02/19 22:17 06/02/19 22:17 06/02/19 22:17 06/02/19 22:17 06/02/19 22:17 - Laboratory Result Diagrams: 06/02/19 18:00 06/02/19 18:00 Laboratory results interpreted by me: 06/02/19 06/02/19 18:00 18:00 RBC 3.37 L Hgb 9.9 L Hct 31.0 L MCHC 31.9 L RDW 18.2 H Carbon Dioxide 31 H BUN 22 H Est GFR (Non-Af Amer) 57 L Glucose 114 H Discharge - Discharge Clinical Impression: Right ankle pain Qualifiers: Chronicity: acute Qualified Code(s): M25.571 - Pain in right ankle and joints of right foot Condition: Stable Disposition: HOME, SELF-CARE Instructions: Gout ([facility]), Gout Diet ([facility]) Additional Instructions: Your x-ray shows soft tissue swelling but no other concerning finding. The Dop pler shows no clot. This is most likely a gout flare. Take the colchicine as provided, continue your current pain medications, follow- up closely with your primary care provider for additional management. Seek gout diet instructions and to try to follow this closely to avoid flares. Return if you worsen including severe worsening pain or swelling, fever/chills, or any other concerning symptoms. Prescriptions: Colchicine [Colchicine 0.6 mg Tablet] 0.6 mg PO BID PRN #10 tablet PRN Reason: Referrals: NEGRITA MAI, [Primary Care Provider] - Follow up as needed
[2019-06-02 22:17] VITALS: BP 145/89
== END 2019-06-02 22:17 | disposition home or self-care (01) ==
LOC: ER 17:19
DX: M25.571 Pain in right ankle and joints of right foot (principal); R60.0 Localized edema; J45.909 Unspecified asthma, uncomplicated; E11.9 Type 2 diabetes mellitus without complications; I10 Essential (primary) hypertension; I48.91 Unspecified atrial fibrillation; Z79.02 Long term (current) use of antithrombotics/antiplatelets; Z88.1 Allergy status to other antibiotic agents
CPT/HCPCS: 99284; 36415; 84550; 85025; 80053; 93971; 73610; A9270

== ENCOUNTER 2019-07-12 18:59 | Emergency (ER) | payer MEDICARE ==
--- NOTE | 2019-07-12 19:27 | ER Document Report ---
HPI - HPI Time Seen by Provider: 07/12/19 19:23 Pain Level: 5 Notes: Patient is a 79-year-old female with an extensive medical history including A. fib (on Xarelto), hypertension, type 2 diabetes, lymphedema, gout, IBS who presents complaining of left ankle pain that mimics that of previous gout flareups. Patient states that this started last night. Patient states that she was treated for gout flareup from her right knee this past week and she was placed on colchicine at that time. Patient states that colchicine is usually the medicine that works best for her. She otherwise has been able to eat and drink without difficulty. She is urinating normally. No other recent illness. Patient states that she otherwise feels well and has no other concerns or complaints. Patient states that the swelling in her legs is normal for her. Denies any headache, fever, neck pain, URI, sore throat, chest pain, palpitations, syncope, cough, shortness of breath, wheeze, dyspnea, abdominal pain, nausea/vomiting, urinary retention, dysuria, hematuria, or rash. - ROS Systems Reviewed and Negative: Yes All other systems reviewed and negative - REPRODUCTIVE Reproductive: DENIES: : Past Medical History - Social History Smoking Status: Unknown if Ever Smoked Family History: CAD, DM, Hypertension, Other - Gout - Past Medical History Cardiac Medical History: Reports: Hx Atrial Fibrillation, Hx Hypercholesterolemia - meds x 10 years, Hx Hypertension - meds x 50 years Denies: Hx Congestive Heart Failure, Hx Coronary Artery Disease, Hx Heart Attack, Hx Peripheral Vascular Disease, Hx Pulmonary Embolism, Hx Heart Murmur Pulmonary Medical History: Reports: Hx Asthma, Hx Pneumonia - no hospitalization, Hx Sleep Apnea - Dx'ed approx 5 years ago, does NOT use CPAP Denies: Hx Bronchitis, Hx COPD, Hx Respiratory Failure, Hx Tuberculosis Neurological Medical History: Denies: Hx Seizures Endocrine Medical History: Reports: Hx Diabetes Mellitus Type 2, Hx Hypothyroidism - meds since age 13 years old (1953). Denies: Hx Diabetes Mellitus Type 1, Hx Graves' Disease, Hx Hyperthyroidism Renal/ Medical History: Denies: Hx End Stage Renal Disease, Hx Kidney Stones, Hx Ovarian Cysts, Hx Peritoneal Dialysis, Hx Pelvic Inflammatory Disease Malignancy Medical History: Denies: Hx Breast Cancer, Hx Cervical Cancer, Hx Leukemia, Hx Lung Cancer, Hx Ovarian Cancer GI Medical History: Denies: Hx Crohn's Disease, Hx Gastroesophageal Reflux Disease, Hx Hiatal Hernia, Hx Irritable Bowel, Hx Liver Failure, Hx Pancreatitis, Hx Ulcer, Hx Ulcerative Colitis Musculoskeletal Medical History: Reports Hx Arthritis, Denies Hx Fibromyalgia, Reports Hx Gout, Denies Hx Muscular Dystrophy, Denies Hx Systemic Lupus Erythematosus Skin Medical History: Denies Hx Eczema, Denies Hx Psoriasis Psychiatric Medical History: Denies: Hx Depression Traumatic Medical History: Reports: Hx Fractures - RT elbow & RT arm ? ulna vs radius, denies surgery. Denies: Hx Gunshot Wound, Hx Traumatic Brain Injury Infectious Medical History: Denies: Hx HIV Past Surgical History: Reports: Hx Section - 1977, Hx Cholecystectomy - lap 2013, Hx Orthopedic Surgery - bilat knee replacement, Hx Thyroid Surgery. Denies: Hx Appendectomy, Hx Bowel Surgery, Hx Colostomy, Hx Coronary Artery Bypass Graft, Hx Gastric Bypass Surgery, Hx Herniorrhaphy, Hx Hysterectomy, Hx Mastectomy, Hx Pacemaker, Hx Tonsillectomy, Hx Tubal Ligation - Immunizations Hx Diphtheria, Pertussis, Tetanus Vaccination: Yes - 2001 Hx Pneumococcal Vaccination: 11/23/11 Vertical Provider Document - CONSTITUTIONAL Agree With Documented VS: Yes Notes: PHYSICAL EXAMINATION: GENERAL: Well-appearing, well-nourished and in no acute distress. LUNGS: Breath sounds clear to auscultation bilaterally and equal. No wheezes rales or rhonchi. HEART: Regular rate and rhythm without murmurs, rubs, gallops. Musculoskeletal: Lt foot/ankle: + pitting edema/lymphedema (but is equal b/l). No ecchymosis or deformity. FROM to passive/active. Strength 5+/5. N/V intact distal. + tenderness to the dorsal proximal foot/anterior ankle. + mild tenderness Lt great MTP joint with mild erythema. No significant erythema. No bony tenderness of the foot otherwise. Achilles intact. Lis Franc maneuver neg. Anterior drawer neg. Pulses obtained using doppler US at bedside. Extremities: No cyanosis, clubbing, or edema b/l. Peripheral pulses 1+. Capillary refill less than 3 seconds. NEUROLOGICAL: Normal speech, limping gait. Normal sensory, motor exams PSYCH: Normal mood, normal affect. SKIN: see above - INFECTION CONTROL TRAVEL OUTSIDE OF THE [place] IN LAST 30 DAYS: No Course - Re-evaluation Re-evalutation: 07/12/19 19:[address] Garcia who agrees with dispo/plan: Patient is an afebrile, well-hydrated, 79-year-old female who presents to the ED with left ankle pain which I suspect to be gout flare, no recent injury noted. Vitals are acceptable without any significant tachycardia, tachypnea, or hypoxia. PE is otherwise unremarkable for any neurovascular compromise, obvious tendon/ligament rupture, obvious fracture/dislocation, septic joint. Patient is nontoxic-appearing. Patient is able to ambulate and weight-bear although she is limping. No other labs or imaging warranted at this time based on H&P. Patient has had this issue multiple times in the past. Patient states that she is here because of a gout flare and does not want any further work-up performed as well including any further imaging or labs. Conservative measures otherwise for symptoms. Recheck with your PCM in 3-5 days. Consider consult orthopedics. Return to the ED with any worsening/concerning symptoms otherwise as reviewed in discharge. Patient is in agreement. - Vital Signs Vital signs: Temp Pulse Resp BP Pulse Ox 100.2 F 99 18 142/74 H 100 07/12/19 19:06 07/12/19 19:06 07/12/19 19:06 07/12/19 19:06 07/12/19 19:06 Discharge - Discharge Clinical Impression: Left ankle pain Qualifiers: Chronicity: acute Qualified Code(s): M25.572 - Pain in left ankle and joints of left foot Condition: Stable Disposition: HOME, SELF-CARE Additional Instructions: Do not hesitate to return for any worsening symptoms or development of fever, worsening symtpoms, or other noted symptoms as listed below. Rest, Ice, Compression, Elevation Tylenol/ibuprofen as needed Light stretches daily Strength exercises as able Moist heat and massage may help F/u with your PCP in 2-3 days for a recheck Consider consult(s) with Orthopedics/physical therapy for ongoing/worsening symptoms Return to the ED with any worsening symptoms and/or development of fever, headache, chest pain, palpitations, syncope, shortness of breath, trouble breathing, abdominal pain, n/v/d, muscle weakness/paralysis, numbness/tingling, swelling, redness, or other worsening symptoms that are concerning to you. Prescriptions: Colchicine [Colchicine 0.6 mg Tablet] 1 tab PO BID #8 tablet Forms: Elevated Blood Pressure Referrals: NEGRITA MAI DO [Primary Care Provider] - 07/14/19 [facility] [Provider Group] - Follow up as needed
[2019-07-12 19:38] VITALS: BP 118/74
== END 2019-07-12 19:54 | disposition home or self-care (01) ==
LOC: ER 18:59
DX: M25.572 Pain in left ankle and joints of left foot (principal); I89.0 Lymphedema, not elsewhere classified; I10 Essential (primary) hypertension; E11.9 Type 2 diabetes mellitus without complications; J45.909 Unspecified asthma, uncomplicated; I48.91 Unspecified atrial fibrillation; Z79.02 Long term (current) use of antithrombotics/antiplatelets

== ENCOUNTER 2019-12-08 11:21 | Outpatient (CLI) | payer MEDICARE ==
[~2019-12-08 11:21] MED LIST: FERRIC CARBOXYMALTOSE 750 MG in NORMAL SALINE 250 ML IV PRN
[2019-12-08 11:35] VITALS: BP 142/80
== END 2019-12-08 12:52 | disposition home or self-care (01) ==
LOC: II 11:21 → 5TH 11:24 → II 12:52
PROVIDERS: ATTEND Physician Assistant Medical
DX: D50.8 Other iron deficiency anemias (principal)
CPT/HCPCS: 96365; J7050; J1439

== ENCOUNTER 2019-12-15 11:19 | Outpatient (CLI) | payer MEDICARE ==
[2019-12-15 11:30] VITALS: BP 137/69
== END 2019-12-15 12:30 | disposition home or self-care (01) ==
LOC: II 11:19 → 5TH 11:22 → II 12:30
PROVIDERS: ATTEND Physician Assistant Medical
DX: D50.8 Other iron deficiency anemias (principal)
CPT/HCPCS: 96365; J7050; J1439

== ENCOUNTER → 2020-05-03 | Outpatient (CLI) | payer MEDICARE ==
--- NOTE | 2020-05-04 00:05 | XCELERA REPORT ---
[address] [address] Transthoracic Echocardiogram Report Name: JASMIN CONWAY Age: 80 yrs Gender: Female : 1940 Patient Status: Outpatient Patient Location: [facility] Study Date: 05/03/2020 03:06 PM History: CHF Height: 62 in Weight: 231 lb BSA: 2.0 m2 Procedure: A complete two-dimensional transthoracic echocardiogram was performed (2D, M-mode, spectral and color flow Doppler). The study was technically difficult with many images being suboptimal in quality. Reason For Study: CHF Previous Evaluation: A previous study was performed on 03/19/2019. History: CHF. Atrial fibrillation. Ordering Physician: ALEJANDRO FARLEY Performed By: Jinny Mai Interpretation Summary Left ventricular systolic function is normal. The Ejection Fraction estimate is 60-65% The right ventricle is normal in size and function. There is a trace amount of mitral regurgitation There is no aortic valve stenosis There is a mild amount of tricuspid regurgitation There is no pericardial effusion. MMode/2D Measurements & Calculations RVDd: 2.2 cm LVIDd: 4.9 cm FS: 37.3 % Ao root diam: 2.6 cm IVSd: 1.3 cm LVIDs: 3.1 cm EDV(Teich): 114.0 ml Ao root area: 5.5 cm2 LVPWd: 1.1 cm ESV(Teich): 37.5 ml LA dimension: 4.6 cm EF(Teich): 67.1 % Doppler Measurements & Calculations MV E max marietta: MV P1/2t max marietta: Ao V2 max: LV V1 max P.4 cm/sec 104.7 cm/sec 156.9 cm/sec 5.3 mmHg MV A max marietta: MV P1/2t: 106.2 msec Ao max P.8 mmHgLV V1 max: 25.1 cm/sec MVA(P1/2t): 2.1 cm2 115.0 cm/sec MV E/A: 4.3 MV dec slope: 288.7 cm/sec2 MV dec time: 0.16 sec PA V2 max: TR max marietta: MV P1/2t-pr_phl: 90.5 cm/sec 290.5 cm/sec 106.2 msec PA max P.3 mmHgTR max P.8 mmHg Left Ventricle The left ventricle is normal in size. There is moderate concentric left ventricular hypertrophy. Left ventricular systolic function is normal. The Ejection Fraction estimate is 60-65%. LV diastolic function not assessed. Regional wall motion abnormalities cannot be excluded due to limited visualization. Right Ventricle The right ventricle is normal in size and function. Atria The right atrium is normal. The left atrium is mildly dilated. Mitral Valve The mitral valve is grossly normal. There is no mitral valve stenosis. There is a trace amount of mitral regurgitation. Aortic Valve The aortic valve is not well visualized secondary to technical limitations. The aortic valve is sclerotic and shows some degree of functional abnormality. The aortic valve is calcified. There is no aortic valve stenosis. No aortic regurgitation is present. Tricuspid Valve The tricuspid valve is not well visualized, but is grossly normal. There is a mild amount of tricuspid regurgitation. Right ventricular systolic pressure is estimated to be elevated at 30-40mmHg. There is mild pulmonary hypertension by echo. Pulmonic Valve The pulmonic valve is not well visualized. There is a trace amount of pulmonic regurgitation. Great Vessels There is aortic root sclerosis/calcification. The aortic root is normal size. The inferior vena cava appeared normal and decreased < 50% with respiration (RAP 10-15 mmHg). Effusions There is no pericardial effusion. : ALEJANDRO FARLEY Anil
== END ==
LOC: SP 14:37
PROVIDERS: ATTEND Internal Medicine
DX: I50.32 Chronic diastolic (congestive) heart failure (principal)
CPT/HCPCS: 93306

== ENCOUNTER 2020-08-14 12:44 | Inpatient (IN) | payer MEDICARE ==
[2020-08-14] MEDS ORDERED: HYDROCODONE/ACETAMINOPHEN 5-325 MG TABLET PO ONE (13:30)
--- NOTE | 2020-08-14 13:36 | ER Document Report ---
ED Medical Screen (RME) - General Chief Complaint: Wound Infection Stated Complaint: LEG PAIN/WOUND CHECK Time Seen by Provider: 08/14/20 13:20 Primary Care Provider: LISA EDDY PA-C [Primary Care Provider] - Follow up as needed TRAVEL OUTSIDE OF THE [place] IN LAST 30 DAYS: No - HPI Notes: 08/14/20 13:31 80-year-old female with a history of A. fib on Eliquis and type 2 diabetes with worsening left lower leg wound that is become progressively worse over the last few days. Patient states she has had a wound for the last 2 months. She initially was placed on oral Keflex by her PCP, her symptoms became worse she went to [facility] in [place] with a gave her IV vancomycin and discharged her home on doxycycline, she states that her symptoms have become progressively worse. She finished her oral antibiotic couple days ago and she states has not helped at all. Patient is was to be seen by wound clinic tomorrow. The daughter states that they do dressing changes every 2 to 3 days, there is yellow purulent drainage and sometimes clear drainage. Patient states her pain is 5 out of 5, worse with time. Denies any fevers or chills. Patient unsure of her history of MRSA I have greeted and performed a rapid initial assessment of this patient. A comprehensive ED assessment and evaluation of the patient, analysis of test results and completion of the medical decision making process will be conducted by additional ED providers. PHYSICAL EXAMINATION: GENERAL: Chronically ill well-nourished and in no acute distress. CV: s1, s2 regular LUNGS: No respiratory distress SKIN: Warm, Dry, normal turgor, no rashes or lesions noted. Left lower extremity with an almost circumferential wound that has yellow and clear discharge from wound. Noted erythema swelling and pitting edema. Faint distal pulses - Related Data Allergies/Adverse Reactions: sulfamethoxazole [From Bactrim] Allergy (Severe, Verified 01/09/16 14:51) rash, "mad itch" trimethoprim [From Bactrim] Allergy (Severe, Verified 01/09/16 14:51) rash, "mad itch" Past Medical History - Social History Frequency of alcohol use: None Drug Abuse: None - Past Medical History Cardiac Medical History: Reports: Hx Atrial Fibrillation, Hx Hypercholesterolemia - meds x 10 years, Hx Hypertension - meds x 50 years Denies: Hx Congestive Heart Failure, Hx Coronary Artery Disease, Hx Heart Attack, Hx Peripheral Vascular Disease, Hx Pulmonary Embolism, Hx Heart Murmur Pulmonary Medical History: Reports: Hx Asthma, Hx Pneumonia - no hospitalization, Hx Sleep Apnea - Dx'ed approx 5 years ago, does NOT use CPAP Denies: Hx Bronchitis, Hx COPD, Hx Respiratory Failure, Hx Tuberculosis Neurological Medical History: Denies: Hx Seizures Endocrine Medical History: Reports: Hx Diabetes Mellitus Type 2, Hx Hypothyroidism - meds since age 13 years old (3). Denies: Hx Diabetes Mellitus Type 1, Hx Graves' Disease, Hx Hyperthyroidism Renal/ Medical History: Denies: Hx End Stage Renal Disease, Hx Kidney Stones, Hx Ovarian Cysts, Hx Peritoneal Dialysis, Hx Pelvic Inflammatory Disease Malignancy Medical History: Denies: Hx Breast Cancer, Hx Cervical Cancer, Hx Leukemia, Hx Lung Cancer, Hx Ovarian Cancer GI Medical History: Denies: Hx Crohn's Disease, Hx Gastroesophageal Reflux Disease, Hx Hiatal Hernia, Hx Irritable Bowel, Hx Liver Failure, Hx Pancreatitis, Hx Ulcer, Hx Ulcerative Colitis Musculoskeltal Medical History: Reports Hx Arthritis, Denies Hx Fibromyalgia, Reports Hx Gout, Denies Hx Muscular Dystrophy, Denies Hx Systemic Lupus Erythematosus Skin Medical History: Denies Hx Eczema, Denies Hx Psoriasis Psychiatric Medical History: Denies: Hx Depression Traumatic Medical History: Reports: Hx Fractures - RT elbow & RT arm ? ulna vs radius, denies surgery. Denies: Hx Gunshot Wound, Hx Traumatic Brain Injury Infectious Medical History: Denies: Hx HIV Past Surgical History: Reports: Hx Section - 1977, Hx Cholecystectomy - lap 2013, Hx Orthopedic Surgery - bilat knee replacement, Hx Thyroid Surgery. Denies: Hx Appendectomy, Hx Bowel Surgery, Hx Colostomy, Hx Coronary Artery Bypass Graft, Hx Gastric Bypass Surgery, Hx Herniorrhaphy, Hx Hysterectomy, Hx Mastectomy, Hx Pacemaker, Hx Tonsillectomy, Hx Tubal Ligation - Immunizations Hx Diphtheria, Pertussis, Tetanus Vaccination: Yes - 2001 Physical Exam - Vital signs Vitals: Temp Pulse Resp BP Pulse Ox 98.4 F 87 18 134/85 H 96 08/14/20 12:49 08/14/20 12:49 08/14/20 12:49 08/14/20 12:49 08/14/20 12:49 Course - Vital Signs Vital signs: Temp Pulse Resp BP Pulse Ox 98.4 F 87 18 134/85 H 96 08/14/20 12:49 08/14/20 12:49 08/14/20 12:49 08/14/20 12:49 08/14/20 12:49 Doctor's Discharge - Discharge Referrals: LISA EDDY PA-C [Primary Care Provider] - Follow up as needed
[2020-08-14 14:04] LABS: ABSOLUTE BASOPHILS # (AUTO) 0.1 10^3/uL (0.0-0.2); ABSOLUTE EOSINOPHILS # (AUTO) 0.1 10^3/uL (0.0-0.6); ABSOLUTE LYMPHOCYTES (AUTO) 2.2 10^3/uL (0.5-4.7); ABSOLUTE MONOCYTES (AUTO) 1.1 10^3/uL (0.1-1.4); ABSOLUTE NEUT (AUTO) 5.7 10^3/uL (1.7-8.2); BASOPHILS % (AUTO) 0.8 % (0-2); EOSINOPHILS % (AUTO) 0.9 % (0-6); HEMATOCRIT 38.2 % (36.0-47.0); HEMOGLOBIN 12.6 g/dL (12.0-15.5); LYMPHOCYTES % (AUTO) 23.7 % (13-45); MEAN CORPUSCULAR HEMOGLOBIN 33.2 pg (27.0-33.4); MEAN CORPUSCULAR HGB CONC 33.1 g/dL (32.0-36.0); MEAN CORPUSCULAR VOLUME 100 fl (80-97); MONOCYTES % (AUTO) 11.6 % (3-13); PLATELET COUNT 214 10^3/uL (150-450); RED BLOOD COUNT 3.81 10^6/uL (3.72-5.28); RED CELL DISTRIBUTION WIDTH 15.3 % (11.5-14.0); TOTAL CELLS COUNTED % (AUTO) 100 %; WHITE BLOOD COUNT 9.1 10^3/uL (4.0-10.5)
[2020-08-14 14:23] LABS: ALBUMIN 3.7 g/dL (3.5-5.0); ALKALINE PHOSPHATASE 107 U/L (38-126); ANION GAP 9 (5-19); ASPARTATE AMINO TRANSFERASE 20 U/L (14-36); BILIRUBIN,DIRECT 0.5 mg/dL (0.0-0.4); BILIRUBIN,TOTAL 0.5 mg/dL (0.2-1.3); BLOOD UREA NITROGEN 113 mg/dL (7-20); CALCIUM 9.4 mg/dL (8.4-10.2); CARBON DIOXIDE 24 mmol/L (22-30); CHLORIDE 111 mmol/L (98-107); GLUCOSE 128 mg/dL (75-110); POTASSIUM 5.9 mmol/L (3.6-5.0); TOTAL PROTEIN 7.3 g/dL (6.3-8.2)
--- NOTE | 2020-08-14 15:44 | RADIOLOGY REPORT (SQ) ---
EXAM DESCRIPTION: ANKLE LEFT COMPLETE IMAGES COMPLETED DATE/TIME: 08/14/2020 2:22 pm REASON FOR STUDY: L ankle swelling, erythema, pain, r/o osteo COMPARISON: None. NUMBER OF VIEWS: Three views. TECHNIQUE: AP, lateral, and oblique radiographic images acquired of the left ankle. LIMITATIONS: None. FINDINGS: MINERALIZATION: Osteopenia. BONES: No acute fracture or dislocation. No worrisome bone lesions. JOINTS: No effusions. SOFT TISSUES: Circumferential soft tissue edema. Vascular calcifications. OTHER: No other significant finding. IMPRESSION: Circumferential soft tissue edema without findings to suggest underlying osteomyelitis. No acute injury. TECHNICAL DOCUMENTATION: JOB ID: [id number] 2010 [employer]- All Rights Reserved Reading location - IP/workstation name: [email or web address]
--- NOTE | 2020-08-14 16:05 | RADIOLOGY REPORT (SQ) ---
EXAM DESCRIPTION: VENOUS UNILATERAL LOWER IMAGES COMPLETED DATE/TIME: 08/14/2020 3:55 pm REASON FOR STUDY: LLE with erythema, swelling, pain COMPARISON: None. TECHNIQUE: Dynamic and static moon scale and color images acquired of the left leg venous system. Se lected spectral images acquired with additional compression and augmentation maneuvers. The contralat eral common femoral vein and saphenofemoral junction were also imaged. Images stored on PACS. LIMITATIONS: None. FINDINGS: COMMON FEMORAL: Normal phasicity, compression and augmentation. No visualized echogenic ma terial on moon scale. No defects on color images. FEMORAL: Normal compression and augmentation. No visualized echogenic material on moon scale. No defe cts on color images. POPLITEAL: Normal compression, augmentation. No visualized echogenic material on moon scale. No defec ts on color images. CALF VESSELS: Normal compression, augmentation. No visualized echogenic material on moon scale. No de fects on color images. GSV and SSV: Normal compression, augmentation. No visualized echogenic material on moon scale. No def ects on color images. ANY DEEP VENOUS INSUFFICIENCY: Not evaluated. ANY EVIDENCE OF POPLITEAL CYST: No. OTHER: No other significant finding. CONTRALATERAL COMMON FEMORAL VEIN AND SAPHENOFEMORAL JUNCTION: Normal phasicity, compression and augmentation. No visualized echogenic material on moon scale. No de fects on color images. IMPRESSION: NO EVIDENCE OF DVT OR SVT IN THE LEFT LEG. TECHNICAL DOCUMENTATION: JOB ID: [id number] 2010 [employer]- All Rights Reserved Reading location - IP/workstation name: [email or web address]
[2020-08-14] MEDS ORDERED: LINEZOLID 600 MG/300 ML RTUPB IV ONE (16:49)
[2020-08-14] MEDS ORDERED: FUROSEMIDE INJ/PF 40 MG/4 ML SDV IV ONE (16:50)
--- NOTE | 2020-08-14 16:57 | ER Document Report ---
ED General - General Chief Complaint: Wound Infection Stated Complaint: LEG PAIN/WOUND CHECK Time Seen by Provider: 08/14/20 13:20 Primary Care Provider: LISA EDDY PA-C [Primary Care Provider] - Follow up as needed TRAVEL OUTSIDE OF THE [place] IN LAST 30 DAYS: No - HPI Notes: Patient is an 80-year-old female with a history of CKD, lymphedema, hypertension, who presents to the emergency department for evaluation of worsening left lower extremity cellulitis. This is been a chronic and ongoing issue frequently. She had an increase in edema as well as redness, subjective chills, and went to the ER at [facility]. She was treated with vancomycin, sent home with doxycycline. She states that her symptoms have not gotten any better. She continues to have chills, she is had some nausea. The leakage of fluid from her left lower extremity wound has gotten significantly worse. She did not take any of her medications today. - Related Data Allergies/Adverse Reactions: sulfamethoxazole [From Bactrim] Allergy (Severe, Verified 01/09/16 14:51) rash, "mad itch" trimethoprim [From Bactrim] Allergy (Severe, Verified 01/09/16 14:51) rash, "mad itch" Past Medical History - General Information source: Patient - Social History Smoking Status: Never Smoker Frequency of alcohol use: None Drug Abuse: None Family History: CAD, DM, Hypertension, Other - Past Medical History Cardiac Medical History: Reports: Hx Atrial Fibrillation, Hx Hypercholesterolemia - meds x 10 years, Hx Hypertension - meds x 50 years Denies: Hx Congestive Heart Failure, Hx Coronary Artery Disease, Hx Heart Attack, Hx Peripheral Vascular Disease, Hx Pulmonary Embolism, Hx Heart Murmur Pulmonary Medical History: Reports: Hx Asthma, Hx Pneumonia - no hospitalization, Hx Sleep Apnea - Dx'ed approx 5 years ago, does NOT use CPAP Denies: Hx Bronchitis, Hx COPD, Hx Respiratory Failure, Hx Tuberculosis Neurological Medical History: Denies: Hx Seizures Endocrine Medical History: Reports: Hx Diabetes Mellitus Type 2, Hx Hypothyroidism - meds since age 13 years old (3). Denies: Hx Diabetes Mellitus Type 1, Hx Graves' Disease, Hx Hyperthyroidism Renal/ Medical History: Reports: Hx Renal Insufficiency. Denies: Hx End Stage Renal Disease, Hx Kidney Stones, Hx Ovarian Cysts, Hx Peritoneal Dialysis, Hx Pelvic Inflammatory Disease Malignancy Medical History: Denies: Hx Breast Cancer, Hx Cervical Cancer, Hx Leukemia, Hx Lung Cancer, Hx Ovarian Cancer GI Medical History: Denies: Hx Crohn's Disease, Hx Gastroesophageal Reflux Disease, Hx Hiatal Hernia, Hx Irritable Bowel, Hx Liver Failure, Hx Pancreatitis, Hx Ulcer, Hx Ulcerative Colitis Musculoskeletal Medical History: Reports Hx Arthritis, Denies Hx Fibromyalgia, Reports Hx Gout, Denies Hx Muscular Dystrophy, Denies Hx Systemic Lupus Erythematosus Skin Medical History: Denies Hx Eczema, Denies Hx Psoriasis Psychiatric Medical History: Denies: Hx Depression Traumatic Medical History: Reports: Hx Fractures - RT elbow & RT arm ? ulna vs radius, denies surgery. Denies: Hx Gunshot Wound, Hx Traumatic Brain Injury Infectious Medical History: Denies: Hx HIV Past Surgical History: Reports: Hx Section - 1977, Hx Cholecystectomy - lap 2013, Hx Orthopedic Surgery - bilat knee replacement, Hx Thyroid Surgery. Denies: Hx Appendectomy, Hx Bowel Surgery, Hx Colostomy, Hx Coronary Artery Bypass Graft, Hx Gastric Bypass Surgery, Hx Herniorrhaphy, Hx Hysterectomy, Hx Mastectomy, Hx Pacemaker, Hx Tonsillectomy, Hx Tubal Ligation - Immunizations Hx Diphtheria, Pertussis, Tetanus Vaccination: Yes - 2001 Hx Pneumococcal Vaccination: 11/23/11 Review of Systems - Review of Systems Constitutional: See HPI EENT: No symptoms reported Cardiovascular: See HPI Respiratory: No symptoms reported Gastrointestinal: See HPI Genitourinary: No symptoms reported Musculoskeletal: No symptoms reported Skin: See HPI Neurological/Psychological: No symptoms reported Physical Exam - Vital signs Vitals: Temp Pulse Resp BP Pulse Ox 98.4 F 87 18 134/85 H 96 08/14/20 12:49 08/14/20 12:49 08/14/20 12:49 08/14/20 12:49 08/14/20 12:49 - Notes Notes: This is an 80-year-old female who appears her stated age, no acute distress. Vital signs reviewed, please refer to chart. Head is normocephalic, atraumatic. Pupils equal round, reactive to light. Neck is supple without meningismus. Heart is regular rate and rhythm. Lungs are clear to auscultation bilaterally. Abdomen is soft, nontender, normoactive bowel sounds throughout. Extremities reveal chronic lymphedematous changes of bilateral lower extremities, but a significant calor noted to the left lower extremity, into the dorsum of the foot, tracking up to the knee. She has a near circumferential wound, superficial, but heavily seeping, to the lower leg. Neurovascularly intact distally. Patient is awake and alert, cooperative with examiner. Course - Re-evaluation Re-evalutation: 08/14/20 16:56 Patient presents to the emergency department for evaluation. She laboratory investigations and imaging as ordered through triage. Her Doppler was negative. Her laboratory investigations revealed an elevated BUN and creatinine, elevated potassium. I ordered an EKG, which does reveal peaked T waves. Patient has not taken her regular medications today. I did give her 40 mg of IV Lasix. I do not have any records of her old creatinine, I did speak with Dr. Chowdhury. He is able to tell me that just a few months ago her creatinine was 1.5. He recommends admission and investigation into this acute change. Patient was given IV linezolid to cover for failing outpatient antibiotics. She is given Lasix. I will contact medicine for admission. Order placed for Dr. Chowdhury's co nsult. 08/14/20 17:[address] Bailey, she will admit the patient for further care. - Vital Signs Vital signs: Temp Pulse Resp BP Pulse Ox 98.4 F 87 18 134/85 H 96 08/14/20 12:49 08/14/20 12:49 08/14/20 12:49 08/14/20 12:49 08/14/20 12:49 - Laboratory Result Diagrams: 08/14/20 13:48 08/14/20 13:48 Laboratory results interpreted by me: 08/14/20 08/14/20 08/14/20 13:48 13:48 13:48 MCV 100 H RDW 15.3 H Potassium 5.9 H Chloride 111 H BUN 113 H Creatinine 2.69 H Est GFR ( Amer) 21 L Est GFR (MDRD) Non-Af 17 L Glucose 128 H Lactic Acid 0.6 L Direct Bilirubin 0.5 H - Diagnostic Test Radiology reviewed: Reports reviewed Radiology results interpreted by me: 08/14/20 16:57 Venous Doppler Study 08/14/20 13:26 IMPRESSION: NO EVIDENCE OF DVT OR SVT IN THE LEFT LEG. Ankle X-Ray 08/14/20 13:27 IMPRESSION: Circumferential soft tissue edema without findings to suggest underlying osteomyelitis. No acute injury. - EKG Interpretation by Me Additional EKG results interpreted by me: 08/14/20 17:02 Atrial fibrillation with a rate of 89 bpm. Left axis deviation, IVCD, LAFB. Peaked T waves concerning for hyperkalemia. No ST elevation concerning for infarction. Peak T waves are new from prior study. Discharge - Discharge Clinical Impression: Cellulitis of left lower extremity, Hyperkalemia, Acute kidney injury superimposed on chronic kidney disease Condition: Stable Disposition: ADMITTED INPATIENT Admitting Provider: Leo (Hospitalist) Unit Admitted: Telemetry Referrals: LISA EDDY PA-C [Primary Care Provider] - Follow up as needed
[2020-08-14] MEDS ORDERED: CALCIUM GLUC IN NACL, ISO-OSM 1 GM/50 ML RTUPB IV ONE ×2 (18:00→21:00)
[2020-08-14] MEDS ORDERED: SODIUM POLYSTYRENE SULFONATE 15 GM/60 ML PO ONE ×2 (18:00→21:00)
[2020-08-14] MEDS ORDERED: LACTULOSE SYRUP 20 GM/30 ML UDCUP PO ONE ×2 (18:00→21:00)
[2020-08-14] MEDS ORDERED: MAG HYDROX/AL HYDROX/SIMETH SUSP 30 ML UDCUP PO PRN (18:21)
[2020-08-14] MEDS: ACETAMINOPHEN 325 MG TABLET PO SCH (19:17)
[2020-08-14] MEDS: APIXABAN 2.5 MG TABLET PO SCH (19:17)
[2020-08-14] MEDS: ISOSORBIDE MONONITRATE 30 MG TAB.ER.24H PO SCH (19:18)
[2020-08-14] MEDS ORDERED: NORMAL SALINE 1000 ML 1,000 ML IV PRN (20:00)
--- NOTE | 2020-08-14 20:09 | PDOC H&P ---
History of Present Illness Admission Date/PCP: 08/14/20 17:38 LISA EDDY PA-C Patient complains of: LLE pain, oozing History of Present Illness: Mrs. JASMIN CONWAY is a morbidly obese 80 year old female with PMH of CAD, chronic diastolic CHF, HTN, HLD, CHON not on CPAP, atrial fibrillation and chronic venous stasis of BLE c/b venous stasis ulcers who presents to the ED with CC of LLE oozing/pain. She notes that she was recently hospitalized at [facility] for the same thing; while there, she was treated with Vancomycin IV and then transitioned to doxycycline PO on discharge. At home, she has been fatigued, sleeping all day long, lacking energy, feeling weak. She denies fevers and reports that she is always cold, but this is not new. She has had no sick contacts. She does have CHON but does not wear a CPAP. She has not had any falls. Her BLE swelling is not any worse than baseline, but she feels that her LLE ulcerations are oozing more and feel more painful recently. Her only recent change in medications is that her Lasix dose was decreased from 80 mg BID to 40 mg BID about 2 weeks ago. She lives in a multi-generational home with her daughter, grand-daughter. She walks with a walker. She has lots of support at home. No trouble getting/taking medications. She is not followed by wound care currently, but had an appointment to be seen at the wound care clinic tomorrow to establish care. Past Medical History Cardiac Medical History: Reports: Atrial Fibrillation, Congestive Heart Failure, Coronary Artery Disease, Hyperlipidema - meds x 10 years, Hypertension - meds x 50 years, Peripheral Vascular Disease Denies: Myocardial Infarction, Pulmonary Embolism, Heart Murmur Pulmonary Medical History: Reports: Asthma, Pneumonia - no hospitalization, Sleep Apnea - Dx'ed approx 5 years ago, does NOT use CPAP Denies: Bronchitis, Chronic Obstructive Pulmonary Disease (COPD), Respiratory Failure, Tuberculosis Neurological Medical History: Denies: Seizures Endocrine Medical History: Reports: Diabetes Mellitus Type 2, Hypothyroidism - meds since age 13 years old (1952) Denies: Diabetes Mellitus Type 1, Hyperthyroidism Renal/ Medical History: Denies: End Stage Renal Disease Malignancy Medical History: Denies: Breast Cancer, Cervical Cancer, Leukemia, Lung Cancer, Ovarian Cancer GI Medical History: Reports: Gastroesophageal Reflux Disease Denies: Crohn's Disease, Hiatal Hernia, Ulcerative Colitis Musculoskeltal Medical History: Reports: Arthritis, Gout Denies: Fibromyalgia Skin Medical History: Reports: Other - fungal infection of her intertriginous folds Denies: Eczema, Psoriasis Psychiatric Medical History: Denies: Depression Traumatic Medical History: Denies: Gunshot Wound, Traumatic Brain Injury Hematology: Reports: Anemia - occ, Bleeding Tendencies - Taking anticoagulants Denies: Hemophilia, Sickle Cell Disease Infectious Medical History: Denies: HIV Past Surgical History Past Surgical History: Reports: Section - 1977, Cholecystectomy - lap 2013, Orthopedic Surgery - bilat knee replacement Denies: Amputation, Appendectomy, Colostomy, Coronary Artery Bypass Graft, Gastric Bypass Surgery, Herniorrhaphy, Hysterectomy, Mastectomy, Pacemaker, Tonsillectomy, Tubal Ligation Social History Information Source: Patient Smoking Status: Never Smoker Frequency of Alcohol Use: Rare Hx Recreational Drug Use: No Drugs: None Hx Prescription Drug Abuse: No - Advance Directive Resuscitation Status: Do Not Resuscitate Surrogate healthcare decision maker:: Daughter: Scarlett Conway Family History Family History: CAD, DM, Hypertension, Other Parental Family History Reviewed: Yes Children Family History Reviewed: Yes Sibling(s) Family History Reviewed.: Yes Medication/Allergy Home Medications: Lorazepam [Ativan 0.5 mg Tablet] 0.5 mg PO QPM 03/19/18 Tramadol HCl [Ultram 50 mg Tablet] 50 mg PO Q12HP PRN 03/19/18 Isosorbide Mononitrate [Imdur 30 mg Tablet.er] 30 mg PO DAILY 10/11/18 Lisinopril [Prinivil 10 mg Tablet] 10 mg PO DAILY 10/11/18 Nitroglycerin [Nitrostat 0.4 mg (1/150 Gr) Tabs 25/Bottle] 1 tab SL Q5MP PRN 10/11/18 Allopurinol [Zyloprim 100 mg Tablet] 100 mg PO DAILY 08/14/20 Apixaban [Eliquis 5 mg Tablet] 5 mg PO BID 08/14/20 Carvedilol [Coreg 12.5 mg Tablet] 12.5 mg PO Q12 08/14/20 Furosemide [Lasix 40 mg Tablet] 40 mg PO BID 08/14/20 Levothyroxine Sodium [Synthroid 0.15 mg Tablet] 150 mcg PO Q6AM 08/14/20 Omeprazole 20 mg PO DAILY 08/14/20 Allergies/Adverse Reactions: sulfamethoxazole [From Bactrim] Allergy (Severe, Verified 01/09/16 14:51) rash, "mad itch" trimethoprim [From Bactrim] Allergy (Severe, Verified 01/09/16 14:51) rash, "mad itch" Review of Systems Constitutional: PRESENT: as per HPI, fatigue, weakness Cardiovascular: PRESENT: dyspnea on exertion, edema Respiratory: PRESENT: dyspnea Neurological: ABSENT: syncope Endocrine: PRESENT: cold intolerance Physical Exam Vital Signs: Temp Pulse Resp BP Pulse Ox 97.9 F 90 14 136/79 H 100 08/14/20 18:08 08/14/20 18:08 08/14/20 18:08 08/14/20 18:08 08/14/20 18:08 Intake & Output 08/13/20 08/14/20 08/15/20 06:59 06:59 06:59 Weight 102.3 kg General appearance: PRESENT: no acute distress, cooperative, morbidly obese Eye exam: ABSENT: scleral icterus Mouth exam: PRESENT: dry mucosa Throat exam: ABSENT: post pharyngeal erythema Neck exam: ABSENT: JVD Respiratory exam: PRESENT: clear to auscultation alfreda, unlabored. ABSENT: accessory muscle use, crackles, tachypnea Cardiovascular exam: PRESENT: RRR GI/Abdominal exam: PRESENT: normal bowel sounds, soft Extremities exam: PRESENT: +2 edema, other - wrap-around superficial venous stasis ulcerations of the LLE around the ankle without surrounding erythema and no pus Neurological exam: PRESENT: alert, awake, oriented to person, oriented to place, oriented to time, oriented to situation Psychiatric exam: PRESENT: appropriate affect Skin exam: PRESENT: other - erythematous, moist rash of intertriginous folds (a bdomen and inguinal) Results Laboratory Results: 08/14/20 13:48 08/14/20 13:48 08/14/20 08/14/20 08/14/20 13:48 13:48 13:48 WBC 9.1 RBC 3.81 Hgb 12.6 Hct 38.2 MCV 100 H MCH 33.2 MCHC 33.1 RDW 15.3 H Plt Count 214 Seg Neutrophils % 63.0 Sodium 143.6 Potassium 5.9 H Chloride 111 H Carbon Dioxide 24 Anion Gap 9 BUN 113 H Creatinine 2.69 H Est GFR ( Amer) 21 L Glucose 128 H Lactic Acid 0.6 L Calcium 9.4 Total Bilirubin 0.5 AST 20 Alkaline Phosphatase 107 Total Protein 7.3 Albumin 3.7 Impressions: Venous Doppler Study 08/14/20 13:26 IMPRESSION: NO EVIDENCE OF DVT OR SVT IN THE LEFT LEG. Ankle X-Ray 08/14/20 13:27 IMPRESSION: Circumferential soft tissue edema without findings to suggest underlying osteomyelitis. No acute injury. Assessment and Plan - Diagnosis (1) Morbid obesity with BMI of 40.0-44.9, adult Is this a current diagnosis for this admission?: Yes (2) Chronic diastolic CHF (congestive heart failure) Is this a current diagnosis for this admission?: Yes (3) Generalized weakness Is this a current diagnosis for this admission?: Yes (4) Venous stasis of both lower extremities Is this a current diagnosis for this admission?: Yes (5) Venous stasis ulcer of ankle Qualifiers: Varicose vein presence: unspecified whether present Laterality: left Non- pressure ulcer stage: limited to breakdown of skin Qualified Code(s): I83.023 - Varicose veins of left lower extremity with ulcer of ankle; L97.321 - Non- pressure chronic ulcer of left ankle limited to breakdown of skin Is this a current diagnosis for this admission?: Yes (6) Acute kidney injury superimposed on chronic kidney disease Is this a current diagnosis for this admission?: Yes (7) Cellulitis of left lower extremity Is this a current diagnosis for this admission?: Yes (8) Hyperkalemia Is this a current diagnosis for this admission?: Yes - Plan Summary Summary: Ms. Conway appears rather dry on exam: she has no JVD, no crackles on lung exam and her BLE swelling is actually better now than usual. Her BP is low to normal despite not taking any of her BP medications today. She may have a pre-renal KERON due to dehydration. I do not think that her presentation is due to acute CHF exacerbation. Pre-Renal KERON due to Dehydration - DC lasix - start IVF at 100 ml/hr - Odom catheter placed for strict I/O - nephrology consulted Hyperkalemia: due to KERON - calcium gluconate, lactulose, kayexelate - IVF - telemetry - repeat BMP to ensure K is down trending LLE venous stasis ulceration: does not appear acutely infected (no surrounding erythema and no overlying pus) but it's not unreasonable to give short course of antibiotics while awaiting cultures. She certainly does not appear to have a MRSA infected ulcer given that it is not purulent and she just completed a prolonged course of MRSA coverage. - elevate BLE - will ask wound care to see patient while she is here in the hospital - ceftriaxone Generalized Weakness - may be due to recent hospitalization or dehydration due to over-diuresis - PT, OT consult - fall precautions atrial fibrillation - continue home Coreg at reduced dose due to normotension - continue home Eliquis at reduced dose due to renal function - telemetry Code Status: DNR/DNI - Time Time Spent with patient: 35 or more minutes Anticipated Discharge Disposition: Home with Home Health Anticipated Discharge Timeframe: within 48 hours
[2020-08-14 20:18] LABS: ANION GAP 10 (5-19); BLOOD UREA NITROGEN 108 mg/dL (7-20); CALCIUM 9.3 mg/dL (8.4-10.2); CARBON DIOXIDE 21 mmol/L (22-30); CHLORIDE 111 mmol/L (98-107); GLUCOSE 208 mg/dL (75-110)
--- NOTE | 2020-08-14 20:18 | RADIOLOGY REPORT (SQ) ---
EXAM DESCRIPTION: XR CHEST 1 VIEW COMPLETED DATE/TME: 08/14/2020 00:00 CLINICAL HISTORY: 80 years, Female, hypoxemia COMPARISON: Prior study from 10/11/2018 NUMBER OF VIEWS: One TECHNIQUE: Single frontal view of the chest was obtained portably LIMITATIONS: None. FINDINGS: Cardiac and mediastinal contours are stable. Lungs are clear. No pleural effusion or pneumothorax. Severe bilateral glenohumeral joint arthrosis is evident. IMPRESSION: No acute disease. copyright 2010 [employer]- All Rights Reserved
[2020-08-14] MEDS ORDERED: NORMAL SALINE 1000 ML 1,000 ML IV ONE (21:00)
[2020-08-14] MEDS: ONDANSETRON HCL INJ/PF 4 MG/2 ML SDV IV PRN (21:33)
[2020-08-14] MEDS: MELATONIN 5 MG TABLET PO SCH (21:33)
[2020-08-14] MEDS: OXYCODONE HCL IR 5 MG TABLET PO PRN (21:33)
[2020-08-14] MEDS: CARVEDILOL 3.125 MG TABLET PO SCH (21:34)
[2020-08-14] MEDS: CEFTRIAXONE 1 GM/D5W RTU 1 GM/50 ML RTUPB IV SCH (21:35)
[2020-08-14] MEDS ORDERED: NYSTATIN/TRIAMCIN CREAM 15 GM ONE (22:58)
[2020-08-14] MEDS: NYSTATIN/TRIAMCIN CREAM 15 GM TP SCH (23:05)
--- NOTE | 2020-08-15 01:40 | EKG REPORT ---
SEVERITY:- ABNORMAL ECG - ATRIAL FLUTTER, A-RATE 230 LEFT ANTERIOR FASCICULAR BLOCK ABNRM R PROG, CONSIDER ASMI OR LEAD PLACEMENT : Confirmed by: Deanna White MD 15-Aug-2020 01:39:47
[2020-08-15] MEDS: OXYCODONE HCL IR 5 MG TABLET PO PRN ×5 (02:34→22:39)
[2020-08-15 04:27] LABS: HEMATOCRIT 33.2 % (36.0-47.0); HEMOGLOBIN 10.9 g/dL (12.0-15.5); MEAN CORPUSCULAR HEMOGLOBIN 33.2 pg (27.0-33.4); MEAN CORPUSCULAR HGB CONC 32.9 g/dL (32.0-36.0); MEAN CORPUSCULAR VOLUME 101 fl (80-97); PLATELET COUNT 171 10^3/uL (150-450); RED BLOOD COUNT 3.29 10^6/uL (3.72-5.28); RED CELL DISTRIBUTION WIDTH 15.5 % (11.5-14.0)
[2020-08-15 04:55] LABS: ANION GAP 6 (5-19); BLOOD UREA NITROGEN 100 mg/dL (7-20); CALCIUM 8.8 mg/dL (8.4-10.2); CARBON DIOXIDE 23 mmol/L (22-30); CHLORIDE 115 mmol/L (98-107); GLUCOSE 144 mg/dL (75-110); POTASSIUM 5.5 mmol/L (3.6-5.0)
[2020-08-15] MEDS: LEVOTHYROXINE SODIUM 0.15 MG TABLET PO SCH (05:07)
[2020-08-15] MEDS: ACETAMINOPHEN 325 MG TABLET PO SCH ×3 (05:07→22:39)
[2020-08-15] MEDS: PANTOPRAZOLE SODIUM 40 MG TABLET.DR PO SCH (05:07)
[2020-08-15] MEDS ORDERED: LACTULOSE SYRUP 20 GM/30 ML UDCUP PO ONE (08:10)
[2020-08-15] MEDS ORDERED: CALCIUM GLUC IN NACL, ISO-OSM 1 GM/50 ML RTUPB IV ONE (08:10)
[2020-08-15] MEDS: ISOSORBIDE MONONITRATE 30 MG TAB.ER.24H PO SCH (09:22)
[2020-08-15] MEDS: ALLOPURINOL 100 MG TABLET PO SCH (09:22)
[2020-08-15] MEDS: APIXABAN 2.5 MG TABLET PO SCH ×2 (09:23→17:17)
[2020-08-15] MEDS ORDERED: SODIUM POLYSTYRENE SULFONATE 15 GM/60 ML PO ONE (09:30)
[2020-08-15] MEDS: CARVEDILOL 3.125 MG TABLET PO SCH (09:33)
[2020-08-15] MEDS: NYSTATIN/TRIAMCIN CREAM 15 GM TP SCH ×4 (11:13→22:42)
[2020-08-15] MEDS ORDERED: HYDRALAZINE HCL INJ/PF 20 MG/1 ML SDV IV PRN (13:30)
--- NOTE | 2020-08-15 13:38 | PDOC CONSULTATION ---
Consultation Consult Date: 08/15/20 Provider Consulted: Steven SOMERS Consult reason:: KERON on CKD History of Present Illness Admission Date/PCP: 08/14/20 17:38 LISA EDDY PA-C History of Present Illness: JASMIN CONWAY is a 80 year old female with PMH of CKD3 with a baseline creatinine of 1.5, CAD, chronic diastolic CHF, HTN, HLD, CHON not wanting to use her CPAP,and chronic venous stasis of BLE came to the ER complaining of LLE oozing/pain. She also had weakness, n/v and decreased appetite. She claims these issues have been going on for two weeks. She has not been eating or drinking much of anything. Around that time she was breifly in [facility] where she got vanc and was discharge on doxy. In the ER she had labs, a chest x-ray and a doppler of her lower legs. Chest x- ray and doppler were without significant findings. The labs showed a creatinine of 2.45, potassium of 6.0, bicarb of 21, bun of 108. She was deemed to be on the dryside so her furosemide was stopped and she was started on normal saline at 100mL an hour. For the potassium she was given calcium gluconate, lactulose and kayexelate. She was started on ceftriaxone and linezolid, continue pending culture. Today she still has the nausea and decreased appetite. Now she is having diarrhea to go with it. She denies any chest pain, SOB, decreased urination or any issues with urination. Past Medical History Cardiac Medical History: Reports: Atrial Fibrillation, Coronary Artery Disease, Hyperlipidemia - meds x 10 years, Peripheral Vascular Disease Denies: Heart Murmur, Myocardial Infarction, Pulmonary Embolism Pulmonary Medical History: Reports: Asthma, Pneumonia - no hospitalization, Sleep Apnea - Dx'ed approx 5 years ago, does NOT use CPAP Denies: Bronchitis, Chronic Obstructive Pulmonary Disease (COPD), Respiratory Failure, Tuberculosis Neurological Medical History: Denies: Seizures Endocrine Medical History: Reports: Diabetes Mellitus Type 2, Hypothyroidism - m eds since age 13 years old (1952) Denies: Diabetes Mellitus Type 1, Hyperthyroidism Renal/ Medical History: Reports: Chronic Kidney Disease Stage III Denies: Benign Prostatic Hyperplasia, End Stage Renal Disease Malignancy Medical History: Denies: Breast Cancer, Cervical Cancer, Leukemia, Lung Cancer, Ovarian Cancer GI Medical History: Reports: Gastroesophageal Reflux Disease Denies: Crohn's Disease, Hiatal Hernia, Ulcerative Colitis Musculoskeltal Medical History: Reports: Arthritis, Gout Denies: Fibromyalgia, Rheumatoid Arthritis, Systemic Lupus Erythematosus Skin Medical History: Reports: Other - fungal infection of her intertriginous folds Denies: Eczema, Psoriasis Psychiatric Medical History: Denies: Depression Traumatic Medical History: Denies: Gunshot Wound, Traumatic Brain Injury Infectious Medical History: Denies: HIV Past Surgical History Past Surgical History: Reports: Section - 1977, Cholecystectomy - lap 2013, Orthopedic Surgery - bilat knee replacement Denies: Appendectomy, Colostomy, Coronary Artery Bypass Graft, Gastric Bypass Surgery, Herniorrhaphy, Hysterectomy, Mastectomy, Pacemaker, Tonsillectomy, Tubal Ligation Social History Smoking Status: Never Smoker Frequency of Alcohol Use: Rare Hx Recreational Drug Use: No Drugs: None Hx Prescription Drug Abuse: No - Advance Directive Resuscitation Status: Do Not Resuscitate Family History Parental Family History Reviewed: No Children Family History Reviewed: Yes Sibling(s) Family History Reviewed.: Unknown Medication/Allergy Home Medications: Lorazepam [Ativan 0.5 mg Tablet] 0.5 mg PO QPM 03/19/18 Tramadol HCl [Ultram 50 mg Tablet] 50 mg PO Q12HP PRN 03/19/18 Isosorbide Mononitrate [Imdur 30 mg Tablet.er] 30 mg PO DAILY 10/11/18 Lisinopril [Prinivil 10 mg Tablet] 10 mg PO DAILY 10/11/18 Nitroglycerin [Nitrostat 0.4 mg (1/150 Gr) Tabs 25/Bottle] 1 tab SL Q5MP PRN 10/11/18 Allopurinol [Zyloprim 100 mg Tablet] 100 mg PO DAILY 08/14/20 Apixaban [Eliquis 5 mg Tablet] 5 mg PO BID 08/14/20 Carvedilol [Coreg 12.5 mg Tablet] 12.5 mg PO Q12 08/14/20 Furosemide [Lasix 40 mg Tablet] 40 mg PO BID 08/14/20 Levothyroxine Sodium [Synthroid 0.15 mg Tablet] 150 mcg PO Q6AM 08/14/20 Omeprazole 20 mg PO DAILY 08/14/20 Allergies/Adverse Reactions: sulfamethoxazole [From Bactrim] Allergy (Severe, Verified 01/09/16 14:51) rash, "mad itch" trimethoprim [From Bactrim] Allergy (Severe, Verified 01/09/16 14:51) rash, "mad itch" Review of Systems Constitutional: PRESENT: anorexia, chills, weakness. ABSENT: fever(s) Eyes: ABSENT: visual disturbances Nose, Mouth, and Throat: ABSENT: headache(s) Cardiovascular: ABSENT: chest pain, dyspnea on exertion, edema, orthropnea, palpitations Respiratory: ABSENT: cough, dyspnea, sputum Gastrointestinal: PRESENT: diarrhea, nausea, vomiting. ABSENT: abdominal pain, constipation Genitourinary: ABSENT: difficulty urinating, dysuria, hematuria Neurological: PRESENT: weakness. ABSENT: confusion Psychiatric: ABSENT: anxiety Physical Exam Vital Signs: Temp Pulse Resp BP Pulse Ox 98.2 F 57 L 18 113/49 L 99 08/15/20 10:00 08/15/20 10:00 08/15/20 08:34 08/15/20 08:34 08/15/20 08:34 Intake & Output 08/14/20 08/15/20 08/16/20 06:59 06:59 06:59 Intake Total 1610 320 Output Total 1400 Balance 210 320 Weight 102.3 kg General appearance: PRESENT: no acute distress, cooperative, well-developed, well-nourished. ABSENT: disheveled Mouth exam: PRESENT: moist, neck supple Neck exam: ABSENT: JVD, tracheal deviation Respiratory exam: PRESENT: clear to auscultation alfreda. ABSENT: accessory muscle use, crackles, rales, rhonchi, wheezes Cardiovascular exam: PRESENT: +S1, +S2 GI/Abdominal exam: PRESENT: soft. ABSENT: ascites, distended, tenderness Extremities exam: PRESENT: tenderness - LLE. ABSENT: pedal edema, +1 edema, +2 edema Musculoskeletal exam: PRESENT: tenderness - LLE. ABSENT: normal inspection Neurological exam: PRESENT: alert, awake, oriented to person, oriented to place, oriented to time, oriented to situation, other - no asterixis seen Skin exam: PRESENT: dry, erythema, intact, warm Results Laboratory Results: 08/15/20 04:14 08/15/20 04:14 08/14/20 08/14/20 08/14/20 13:48 13:48 13:48 WBC 9.1 RBC 3.81 Hgb 12.6 Hct 38.2 MCV 100 H MCH 33.2 MCHC 33.1 RDW 15.3 H Plt Count 214 Seg Neutrophils % 63.0 Sodium 143.6 Potassium 5.9 H Chloride 111 H Carbon Dioxide 24 Anion Gap 9 BUN 113 H Creatinine 2.69 H Est GFR ( Amer) 21 L Glucose 128 H Lactic Acid 0.6 L Calcium 9.4 Magnesium Total Bilirubin 0.5 AST 20 Alkaline Phosphatase 107 Total Protein 7.3 Albumin 3.7 TSH 08/14/20 08/15/20 08/15/20 19:30 04:14 04:14 WBC 9.0 RBC 3.29 L Hgb 10.9 L Hct 33.2 L MCV 101 H MCH 33.2 MCHC 32.9 RDW 15.5 H Plt Count 171 Seg Neutrophils % Sodium 142.2 Potassium 6.0 H* Chloride 111 H Carbon Dioxide 21 L Anion Gap 10 BUN 108 H Creatinine 2.45 H Est GFR ( Amer) 23 L Glucose 208 H Lactic Acid Calcium 9.3 Magnesium 1.7 Total Bilirubin AST Alkaline Phosphatase Total Protein Albumin TSH 08/15/20 08/15/20 04:14 04:14 WBC RBC Hgb Hct MCV MCH MCHC RDW Plt Count Seg Neutrophils % Sodium 143.6 Potassium 5.5 H Chloride 115 H Carbon Dioxide 23 Anion Gap 6 BUN 100 H Creatinine 2.41 H Est GFR ( Amer) 23 L Glucose 144 H Lactic Acid Calcium 8.8 Magnesium Total Bilirubin AST Alkaline Phosphatase Total Protein Albumin TSH 4.83 H Impressions: Chest X-Ray 08/14/20 00:00 IMPRESSION: No acute disease. copyright 2011 [employer]- All Rights Reserved Venous Doppler Study 08/14/20 13:26 IMPRESSION: NO EVIDENCE OF DVT OR SVT IN THE LEFT LEG. Ankle X-Ray 08/14/20 13:27 IMPRESSION: Circumferential soft tissue edema without findings to suggest underlying osteomyelitis. No acute injury. Assessment & Plan - Diagnosis (1) Acute kidney injury superimposed on chronic kidney disease Is this a current diagnosis for this admission?: Yes Plan: Nonoliguric, related to dehydration with other factors including ATN from her cellulitis and recent use of vanc. Will look to get her hospital records from [facility]. Continue on IV normal saline, will increase to 125mL/hour to compensate for her diarrhea. Will look to get an updated renal U/S. Follow up with labs tomorrow. (2) Cellulitis of left lower extremity Is this a current diagnosis for this admission?: Yes Plan: on antibiotics, all antibiotics should be dose for a GFR less than 25. (3) Generalized weakness Is this a current diagnosis for this admission?: Yes Plan: likely due to dehydration, her high level bun and other possible factors of the potassium causing for muscle weakness when it was 6.0. Also a factor of muscle atrophy (4) Hyperkalemia Is this a current diagnosis for this admission?: Yes Plan: Received SPS twice with lactulose. Likely improved when gets it redrawn. Should keep improving with more hydration. Recommend just SPS by itself if she is not constipated. Patient needs to be placed on a low potassium diet. (5) Diabetes Qualifiers: Diabetes mellitus type: type 2 Diabetes mellitus group home insulin use: unspecified group home insulin use status Diabetes mellitus complication status: with unspecified complications Plan: well controlled with an A1c 6.6 (6) Hypertension Qualifiers: Hypertension type: essential hypertension Qualified Code(s): I10 - Essential (primary) hypertension Plan: Currently controlled at this time (7) Hypomagnesemia Plan: currently stable, will continue to trend as she is hydrated (8) Anemia Plan: Will follow up with labs in the AM (9) Chronic diastolic CHF (congestive heart failure) Is this a current diagnosis for this admission?: Yes Plan: continue to not give diuretics at this time
[2020-08-15] MEDS ORDERED: NORMAL SALINE 1000 ML 1,000 ML IV PRN (13:39)
[2020-08-15] MEDS: ONDANSETRON HCL INJ/PF 4 MG/2 ML SDV IV PRN ×2 (13:56→22:39)
--- NOTE | 2020-08-15 15:02 | RADIOLOGY REPORT (SQ) ---
EXAM DESCRIPTION: U/S RETROPERITON LTD IMAGES COMPLETED DATE/TIME: 08/15/2020 2:49 pm REASON FOR STUDY: victoriano COMPARISON: 10/17/2015 TECHNIQUE: Dynamic and static grayscale images acquired of the kidneys and bladder and recorded on P ACS. Additional selected color Doppler and spectral images recorded. LIMITATIONS: The study is limited due to body habitus and patient's inability to move into a lateral decubitus position FINDINGS: RIGHT KIDNEY: The right kidney is small measured 8.5 mm. Previously the right kidney nathan sured 10.6 cm in length. Increased echogenicity. No solid or suspicious masses. No hydronephros is. No calcifications. LEFT KIDNEY: The left kidney could not be visualized. BLADDER: The bladder is decompressed by Odom catheter. OTHER FINDINGS: No other significant finding. IMPRESSION: Very limited study. Small echogenic right kidney. The left kidney cannot be visualized . TECHNICAL DOCUMENTATION: JOB ID: [id number] 2010 [employer]- All Rights Reserved Reading location - IP/workstation name: [email or web address]
[2020-08-15] MEDS: ISOSORBIDE MONONITRATE 60 MG TAB.ER.24H PO SCH (15:36)
[2020-08-15] MEDS: CARVEDILOL 12.5 MG TABLET PO SCH ×2 (15:47→22:39)
--- NOTE | 2020-08-15 16:42 | PDOC PROGRESS REPORT ---
Subjective Progress Note for:: 08/15/20 Subjective:: She is doing okay. Denies SOB or BUTTS. States that she feels tired and LLE hurts. Reason For Visit: KERON,HYPERKALEMIA,LEFT LOWER EXTREMITY CELLULITIS Physical Exam Vital Signs: Temp Pulse Resp BP Pulse Ox 98.0 F 78 22 H 210/115 H 99 08/15/20 12:31 08/15/20 12:31 08/15/20 12:31 08/15/20 13:27 08/15/20 12:31 Intake & Output 08/14/20 08/15/20 08/16/20 06:59 06:59 06:59 Intake Total 1610 560 Output Total 1400 Balance 210 560 Weight 102.3 kg General appearance: PRESENT: no acute distress, morbidly obese Eye exam: ABSENT: scleral icterus Mouth exam: PRESENT: dry mucosa Neck exam: ABSENT: JVD Respiratory exam: PRESENT: clear to auscultation alfreda, unlabored. ABSENT: crackles Cardiovascular exam: PRESENT: RRR GI/Abdominal exam: PRESENT: normal bowel sounds, soft Extremities exam: PRESENT: +2 edema, other - wrap-around superficial venous stasis ulcerations of the LLE around the ankle without surrounding erythema and no pus Neurological exam: PRESENT: alert, awake, oriented to person, oriented to place, oriented to time, oriented to situation Psychiatric exam: PRESENT: appropriate affect Results Laboratory Results: 08/15/20 04:14 08/15/20 04:14 08/14/20 08/15/20 08/15/20 19:30 04:14 04:14 WBC 9.0 RBC 3.29 L Hgb 10.9 L Hct 33.2 L MCV 101 H MCH 33.2 MCHC 32.9 RDW 15.5 H Plt Count 171 Sodium 142.2 Potassium 6.0 H* Chloride 111 H Carbon Dioxide 21 L Anion Gap 10 BUN 108 H Creatinine 2.45 H Est GFR ( Amer) 23 L Glucose 208 H Calcium 9.3 Magnesium 1.7 TSH 08/15/20 08/15/20 04:14 04:14 WBC RBC Hgb Hct MCV MCH MCHC RDW Plt Count Sodium 143.6 Potassium 5.5 H Chloride 115 H Carbon Dioxide 23 Anion Gap 6 BUN 100 H Creatinine 2.41 H Est GFR ( Amer) 23 L Glucose 144 H Calcium 8.8 Magnesium TSH 4.83 H Impressions: Chest X-Ray 08/14/20 00:00 IMPRESSION: No acute disease. copyright 2011 [employer]- All Rights Reserved Venous Doppler Study 08/14/20 13:26 IMPRESSION: NO EVIDENCE OF DVT OR SVT IN THE LEFT LEG. Ankle X-Ray 08/14/20 13:27 IMPRESSION: Circumferential soft tissue edema without findings to suggest underlying osteomyelitis. No acute injury. Renal Ultrasound 08/15/20 00:00 IMPRESSION: Very limited study. Small echogenic right kidney. The left kidney cannot be visualized. Assessment and Plan - Diagnosis (1) Morbid obesity with BMI of 40.0-44.9, adult Is this a current diagnosis for this admission?: Yes (2) Chronic diastolic CHF (congestive heart failure) Is this a current diagnosis for this admission?: Yes (3) Generalized weakness Is this a current diagnosis for this admission?: Yes (4) Venous stasis of both lower extremities Is this a current diagnosis for this admission?: Yes (5) Venous stasis ulcer of ankle Qualifiers: Varicose vein presence: unspecified whether present Laterality: left Non- pressure ulcer stage: limited to breakdown of skin Qualified Code(s): I83.023 - Varicose veins of left lower extremity with ulcer of ankle; L97.321 - Non- pressure chronic ulcer of left ankle limited to breakdown of skin Is this a current diagnosis for this admission?: Yes (6) Acute kidney injury superimposed on chronic kidney disease Is this a current diagnosis for this admission?: Yes (7) Cellulitis of left lower extremity Is this a current diagnosis for this admission?: Yes (8) Hyperkalemia Is this a current diagnosis for this admission?: Yes - Plan Summary Summary: Mrs. JASMIN CONWAY is a morbidly obese 80 year old female with PMH of CAD, chronic diastolic CHF, HTN, HLD, CHON not on CPAP, atrial fibrillation and chronic venous stasis of BLE c/b venous stasis ulcers who presents to the ED with CC of LLE oozing/pain. She notes that she was recently hospitalized at [facility] for the same thing; while there, she was treated with Vancomycin IV and then transitioned to doxycycline PO on discharge. At home, she has been fatigued, sleeping all day long, lacking energy, feeling weak. She denies fevers and reports that she is always cold, but this is not new. She has had no sick contacts. She does have CHON but does not wear a CPAP. She has not had any falls. Her BLE swelling is not any worse than baseline, but she feels that her LLE ulcerations are oozing more and feel more painful recently. Pre-Renal KERON due to Dehydration: appears rather dry on exam: she has no JVD, no crackles on lung exam and her BLE swelling is actually better now than usual. On admission, her BP was low to normal despite not taking any of her BP medications. She may have had a pre-renal KERON due to dehydration, although ATN due to labile BP and/or IV vancomycin causing nephrotoxicity is still on the differential. - HOLD home lasix - continue IVF at 125 ml/hr - Odom catheter placed for strict I/O - nephrology consulted - renal US without evidence of obstructive uropathy Hyperkalemia: due to KERON - improving with IVF and kayexelate - telemetry LLE venous stasis ulceration: does not appear acutely infected (no surrounding erythema and no overlying pus) but it's not unreasonable to give short course of antibiotics while awaiting cultures. She certainly does not appear to have a MRSA infected ulcer given that it is not purulent and she just completed a prolonged course of MRSA coverage. - elevate BLE - will ask wound care to see patient while she is here in the hospital - ceftriaxone Generalized Weakness - may be due to recent hospitalization and/or dehydration - PT, OT consult - fall precautions atrial fibrillation: rate controlled - continue home Coreg and Eliquis at reduced dose due to renal function - telemetry Essential HTN: uncontrolled, labile - she has been having extremely low BP readings with the automatic cuff and extremely elevated BP readings when manually done - restart home Coreg and Imdur - hydralazine PRN DM2: HbA1c 6.6 - A1c within goal given advanced age Code Status: DNR/DNI - Time Time Spent with patient: 35 or more minutes Anticipated Discharge Disposition: Home with Home Health Anticipated Discharge Timeframe: within 24 hours
[2020-08-15] MEDS ORDERED: MORPHINE SULFATE 10 MG/ML INJ IV PRN (16:44)
[2020-08-15] MEDS: CEFTRIAXONE 1 GM/D5W RTU 1 GM/50 ML RTUPB IV SCH (17:55)
[2020-08-15 19:40] LABS: ANION GAP 8 (5-19); BLOOD UREA NITROGEN 91 mg/dL (7-20); CALCIUM 8.6 mg/dL (8.4-10.2); CARBON DIOXIDE 20 mmol/L (22-30); CHLORIDE 114 mmol/L (98-107); GLUCOSE 130 mg/dL (75-110); POTASSIUM 4.9 mmol/L (3.6-5.0)
[2020-08-15] MEDS: MELATONIN 5 MG TABLET PO SCH (22:39)
[2020-08-16] MEDS: OXYCODONE HCL IR 5 MG TABLET PO PRN ×4 (03:55→20:15)
[2020-08-16 06:49] LABS: HEMATOCRIT 31.9 % (36.0-47.0); HEMOGLOBIN 10.4 g/dL (12.0-15.5); MEAN CORPUSCULAR HEMOGLOBIN 33.3 pg (27.0-33.4); MEAN CORPUSCULAR HGB CONC 32.6 g/dL (32.0-36.0); MEAN CORPUSCULAR VOLUME 102 fl (80-97); PLATELET COUNT 167 10^3/uL (150-450); RED BLOOD COUNT 3.12 10^6/uL (3.72-5.28); RED CELL DISTRIBUTION WIDTH 15.3 % (11.5-14.0); WHITE BLOOD COUNT 8.3 10^3/uL (4.0-10.5)
[2020-08-16] MEDS: LEVOTHYROXINE SODIUM 0.15 MG TABLET PO SCH (07:29)
[2020-08-16] MEDS: ACETAMINOPHEN 325 MG TABLET PO SCH ×3 (07:29→21:08)
[2020-08-16] MEDS: PANTOPRAZOLE SODIUM 40 MG TABLET.DR PO SCH (07:29)
[2020-08-16 08:25] LABS: ANION GAP 9 (5-19); BLOOD UREA NITROGEN 86 mg/dL (7-20); CALCIUM 8.6 mg/dL (8.4-10.2); CARBON DIOXIDE 20 mmol/L (22-30); CHLORIDE 116 mmol/L (98-107); GLUCOSE 110 mg/dL (75-110); POTASSIUM 4.3 mmol/L (3.6-5.0)
[2020-08-16] MEDS: ALLOPURINOL 100 MG TABLET PO SCH (09:12)
[2020-08-16] MEDS: ISOSORBIDE MONONITRATE 60 MG TAB.ER.24H PO SCH (09:14)
[2020-08-16] MEDS: APIXABAN 2.5 MG TABLET PO SCH ×2 (09:14→18:29)
[2020-08-16] MEDS: ONDANSETRON HCL INJ/PF 4 MG/2 ML SDV IV PRN ×2 (09:15→21:08)
[2020-08-16] MEDS: CARVEDILOL 12.5 MG TABLET PO SCH ×2 (09:15→21:09)
[2020-08-16] MEDS ORDERED: DEXTROSE 5%-WATER 1000 ML 1,000 ML with SODIUM BICARBONATE 150 MEQ IV PRN ×2 (09:16)
[2020-08-16] MEDS: NYSTATIN/TRIAMCIN CREAM 15 GM TP SCH ×4 (09:20→21:09)
--- NOTE | 2020-08-16 16:21 | PDOC PROGRESS REPORT ---
Subjective Progress Note for:: 08/16/20 Subjective:: Patient was seen laying in bed at the time of examination. She claims to be doing well without any concerns at the time. Her braun is squeegee tender at this time. She denies any chest pain or SOB. She still has some nausea and her appetite has not come back all the way. Reason For Visit: KERON,HYPERKALEMIA,LEFT LOWER EXTREMITY CELLULITIS Physical Exam Vital Signs: Temp Pulse Resp BP Pulse Ox 97.8 F 88 20 130/67 H 98 08/16/20 09:10 08/16/20 09:10 08/16/20 09:10 08/16/20 09:10 08/16/20 09:10 Intake & Output 08/15/20 08/16/20 08/17/20 06:59 06:59 06:59 Intake Total 1610 2610 Output Total 1400 1250 Balance 210 1360 Weight 102.3 kg 102.3 kg General appearance: PRESENT: no acute distress, well-developed, well-nourished Mouth exam: PRESENT: moist, neck supple Neck exam: ABSENT: JVD, tracheal deviation Respiratory exam: PRESENT: clear to auscultation alfreda. ABSENT: rales, rhonchi, wheezes Cardiovascular exam: PRESENT: +S1, +S2 GI/Abdominal exam: PRESENT: soft. ABSENT: ascites, distended, tenderness Extremities exam: ABSENT: pedal edema, +1 edema, +2 edema Musculoskeletal exam: ABSENT: deformity Neurological exam: PRESENT: alert, awake, oriented to person, oriented to place, oriented to time, oriented to situation Psychiatric exam: PRESENT: appropriate affect, normal mood Skin exam: PRESENT: dry, erythema - LLE, intact, warm. ABSENT: cyanosis Results Laboratory Results: 08/16/20 05:51 08/16/20 05:51 08/15/20 08/16/20 08/16/20 18:59 05:51 05:51 WBC 8.3 RBC 3.12 L Hgb 10.4 L Hct 31.9 L MCV 102 H MCH 33.3 MCHC 32.6 RDW 15.3 H Plt Count 167 Sodium 142.1 Potassium 4.9 Chloride 114 H Carbon Dioxide 20 L Anion Gap 8 BUN 91 H Creatinine 2.10 H Est GFR ( Amer) 27 L Glucose 130 H Calcium 8.6 Magnesium 1.7 08/16/20 05:51 WBC RBC Hgb Hct MCV MCH MCHC RDW Plt Count Sodium 145.2 H Potassium 4.3 Chloride 116 H Carbon Dioxide 20 L Anion Gap 9 BUN 86 H Creatinine 2.06 H Est GFR ( Amer) 28 L Glucose 110 Calcium 8.6 Magnesium Impressions: Chest X-Ray 08/14/20 00:00 IMPRESSION: No acute disease. copyright 2010 [employer]- All Rights Reserved Venous Doppler Study 08/14/20 13:26 IMPRESSION: NO EVIDENCE OF DVT OR SVT IN THE LEFT LEG. Ankle X-Ray 08/14/20 13:27 IMPRESSION: Circumferential soft tissue edema without findings to suggest underlying osteomyelitis. No acute injury. Renal Ultrasound 08/15/20 00:00 IMPRESSION: Very limited study. Small echogenic right kidney. The left kidney cannot be visualized. Assessment & Plan - Diagnosis (1) Acute kidney injury superimposed on chronic kidney disease Is this a current diagnosis for this admission?: Yes Plan: Nonoliguric, related to dehydration with other factors including ATN from her cellulitis and recent use of vanc. Due to the sodium going high, will switch to 1/2 normal saline at 100mL/hour. Follow up with labs tomorrow. (2) Cellulitis of left lower extremity Is this a current diagnosis for this admission?: Yes Plan: on antibiotics, all antibiotics should be dose for a GFR less than 25. (3) Generalized weakness Is this a current diagnosis for this admission?: Yes Plan: improving at this time (4) Hyperkalemia Is this a current diagnosis for this admission?: Yes Plan: resolved after getting SPS, patient should be on a low potassium diet (5) Diabetes Qualifiers: Diabetes mellitus type: type 2 Diabetes mellitus group home insulin use: unspecified terminal superintendent insulin use status Diabetes mellitus complication status: with unspecified complications (6) Hypertension Qualifiers: Hypertension type: essential hypertension Qualified Code(s): I10 - Essential (primary) hypertension Plan: Currently controlled at this time (7) Hypomagnesemia Plan: currently stable, will continue to trend as she is hydrated (8) Anemia Plan: will look to add anemia labs to tomorrows lab pull (9) Chronic diastolic CHF (congestive heart failure) Is this a current diagnosis for this admission?: Yes Plan: continue to not give diuretics at this time
--- NOTE | 2020-08-16 18:18 | PDOC PROGRESS REPORT ---
Subjective Progress Note for:: 08/16/20 Subjective:: She is feeling okay. States that she is tired, weak and continues to have LLE pain. She was able to sit up in a chair for an hour today. Her daughter states that, at home, she spends "70% of her day sleeping." Reason For Visit: KERON, HYPERKALEMIA, LEFT LOWER EXTREMITY CELLULITIS Physical Exam Vital Signs: Temp Pulse Resp BP Pulse Ox 97.8 F 88 20 130/67 H 98 08/16/20 09:10 08/16/20 09:10 08/16/20 09:10 08/16/20 09:10 08/16/20 09:10 Intake & Output 08/15/20 08/16/20 08/17/20 06:59 06:59 06:59 Intake Total 1610 2610 Output Total 1400 1250 Balance 210 1360 Weight 102.3 kg 102.3 kg General appearance: PRESENT: no acute distress, cooperative Mouth exam: PRESENT: moist Neck exam: ABSENT: JVD Respiratory exam: PRESENT: clear to auscultation alfreda Cardiovascular exam: PRESENT: RRR GI/Abdominal exam: PRESENT: normal bowel sounds, soft Extremities exam: PRESENT: +2 edema, other - LLE recently wrapped by wound care and I did not open the wraps today Neurological exam: PRESENT: alert, awake, oriented to person, oriented to place, oriented to time, oriented to situation Psychiatric exam: PRESENT: appropriate affect Skin exam: ABSENT: rash Results Laboratory Results: 08/16/20 05:51 08/16/20 05:51 08/15/20 08/16/20 08/16/20 18:59 05:51 05:51 WBC 8.3 RBC 3.12 L Hgb 10.4 L Hct 31.9 L MCV 102 H MCH 33.3 MCHC 32.6 RDW 15.3 H Plt Count 167 Sodium 142.1 Potassium 4.9 Chloride 114 H Carbon Dioxide 20 L Anion Gap 8 BUN 91 H Creatinine 2.10 H Est GFR ( Amer) 27 L Glucose 130 H Calcium 8.6 Magnesium 1.7 08/16/20 05:51 WBC RBC Hgb Hct MCV MCH MCHC RDW Plt Count Sodium 145.2 H Potassium 4.3 Chloride 116 H Carbon Dioxide 20 L Anion Gap 9 BUN 86 H Creatinine 2.06 H Est GFR ( Amer) 28 L Glucose 110 Calcium 8.6 Magnesium Impressions: Chest X-Ray 08/14/20 00:00 IMPRESSION: No acute disease. copyright 2010 [employer]- All Rights Reserved Venous Doppler Study 08/14/20 13:26 IMPRESSION: NO EVIDENCE OF DVT OR SVT IN THE LEFT LEG. Ankle X-Ray 08/14/20 13:27 IMPRESSION: Circumferential soft tissue edema without findings to suggest underlying osteomyelitis. No acute injury. Renal Ultrasound 08/15/20 00:00 IMPRESSION: Very limited study. Small echogenic right kidney. The left kidney cannot be visualized. Assessment and Plan - Diagnosis (1) Morbid obesity with BMI of 40.0-44.9, adult Is this a current diagnosis for this admission?: Yes (2) Chronic diastolic CHF (congestive heart failure) Is this a current diagnosis for this admission?: Yes (3) Generalized weakness Is this a current diagnosis for this admission?: Yes (4) Venous stasis of both lower extremities Is this a current diagnosis for this admission?: Yes (5) Venous stasis ulcer of ankle Qualifiers: Varicose vein presence: unspecified whether present Laterality: left Non- pressure ulcer stage: limited to breakdown of skin Qualified Code(s): I83.023 - Varicose veins of left lower extremity with ulcer of ankle; L97.321 - Non- pressure chronic ulcer of left ankle limited to breakdown of skin Is this a current diagnosis for this admission?: Yes (6) Acute kidney injury superimposed on chronic kidney disease Is this a current diagnosis for this admission?: Yes (7) Cellulitis of left lower extremity Is this a current diagnosis for this admission?: Yes (8) Hyperkalemia Is this a current diagnosis for this admission?: Yes - Plan Summary Summary: Mrs. JASMIN CONWAY is a morbidly obese 80 year old female with PMH of CAD, chronic diastolic CHF, HTN, HLD, CHON not on CPAP, atrial fibrillation and chronic venous stasis of BLE c/b venous stasis ulcers who presented to the ED with CC of LLE oozing/pain. She notes that she was recently hospitalized at [facility] for the same thing; while there, she was treated with Vancomycin IV and then transitioned to doxycycline PO on discharge. At home, she has been fatigued, sleeping all day long, lacking energy, feeling weak. She denies fevers and reports that she is always cold, but this is not new. She has had no sick contacts. She does have CHON but does not wear a CPAP. She has not had any falls. Her BLE swelling is not any worse than baseline, but she feels that her LLE ulcerations are oozing more and feel more painful recently. Pre-Renal KERON due to Dehydration: appears rather dry on exam: she has no JVD, no crackles on lung exam and her BLE swelling is actually better now than usual. On admission, her BP was low to normal despite not taking any of her BP medications. She may have had a pre-renal KERON due to dehydration, although ATN due to labile BP and/or IV vancomycin causing nephrotoxicity is still on the differential. - HOLD home lasix - continue IVF at 100 ml/hr - nephrology consulted - renal US without evidence of obstructive uropathy Hyperkalemia: due to KERON, resolved with IVF, kayexalate and lactulose. LLE venous stasis ulceration: does not appear acutely infected (no surrounding erythema and no overlying pus). She just completed a prolonged course of MRSA coverage. - elevate BLE - wound care saw patient on 08/16 and wrapped wounds Generalized Weakness, Fatigue - may be due to recent hospitalization - PT, OT consulted, recommend SNF on discharge - fall precautions CHNO: not on CPAP at home - outpatient sleep study atrial fibrillation: rate controlled - continue home Coreg and Eliquis at reduced dose due to renal function - telemetry Essential HTN: uncontrolled, labile - she has been having extremely low BP readings with the automatic cuff and extremely elevated BP readings when manually done - restart home Coreg and Imdur - hydralazine PRN DM2: HbA1c 6.6 - A1c within goal given advanced age Code Status: DNR/DNI - Time Time Spent with patient: 35 or more minutes Anticipated Discharge Disposition: [facility] Facility Anticipated Discharge Timeframe: within 24 hours
[2020-08-16] MEDS: CEFTRIAXONE 1 GM/D5W RTU 1 GM/50 ML RTUPB IV SCH (18:29)
[2020-08-16] MEDS ORDERED: 1/2 NORMAL SALINE 1,000 ML IV PRN (19:00)
[2020-08-16 19:21] LABS: ANION GAP 7 (5-19); BLOOD UREA NITROGEN 74 mg/dL (7-20); CALCIUM 8.3 mg/dL (8.4-10.2); CARBON DIOXIDE 25 mmol/L (22-30); CHLORIDE 112 mmol/L (98-107); GLUCOSE 130 mg/dL (75-110); POTASSIUM 3.9 mmol/L (3.6-5.0)
[2020-08-16] MEDS: MELATONIN 5 MG TABLET PO SCH (21:09)
[2020-08-17] MEDS: PANTOPRAZOLE SODIUM 40 MG TABLET.DR PO SCH (05:17)
[2020-08-17] MEDS: ACETAMINOPHEN 325 MG TABLET PO SCH ×3 (05:17→21:06)
[2020-08-17] MEDS: LEVOTHYROXINE SODIUM 0.15 MG TABLET PO SCH (05:17)
[2020-08-17 07:08] LABS: ABSOLUTE RETICS # 0.069 10^6/uL (0.028-0.122); HEMATOCRIT 30.8 % (36.0-47.0); HEMOGLOBIN 10.1 g/dL (12.0-15.5); MEAN CORPUSCULAR HGB CONC 32.6 g/dL (32.0-36.0); MEAN CORPUSCULAR VOLUME 101 fl (80-97); PLATELET COUNT 158 10^3/uL (150-450); RED BLOOD COUNT 3.04 10^6/uL (3.72-5.28); RED CELL DISTRIBUTION WIDTH 14.7 % (11.5-14.0); RETICULOCYTE COUNT (AUTO) 2.25 % (0.66-2.85); WHITE BLOOD COUNT 9.8 10^3/uL (4.0-10.5)
[2020-08-17 07:22] LABS: IRON(TIBC) 18.9 ug/dL (37-170)
[2020-08-17] MEDS ORDERED: NORMAL SALINE 1000 ML 1,000 ML IV PRN (08:03)
[2020-08-17] MEDS: ALLOPURINOL 100 MG TABLET PO SCH (11:01)
[2020-08-17] MEDS: CARVEDILOL 12.5 MG TABLET PO SCH ×2 (11:01→21:06)
[2020-08-17] MEDS: APIXABAN 2.5 MG TABLET PO SCH ×2 (11:03→17:32)
[2020-08-17] MEDS: ISOSORBIDE MONONITRATE 60 MG TAB.ER.24H PO SCH (11:03)
[2020-08-17] MEDS: NYSTATIN/TRIAMCIN CREAM 15 GM TP SCH ×4 (11:07→21:06)
[2020-08-17 13:28] LABS: ANION GAP 7 (5-19); BLOOD UREA NITROGEN 70 mg/dL (7-20); CALCIUM 8.4 mg/dL (8.4-10.2); CARBON DIOXIDE 24 mmol/L (22-30); CHLORIDE 112 mmol/L (98-107); GLUCOSE 117 mg/dL (75-110); POTASSIUM 3.9 mmol/L (3.6-5.0)
[2020-08-17] MEDS: OXYCODONE HCL IR 5 MG TABLET PO PRN ×2 (14:05→18:35)
--- NOTE | 2020-08-17 14:53 | PDOC TRANSFER SUMMARY ---
Impression - Admit/DC Date/PCP Admission Date/Primary Care Provider: 08/14/20 17:38 LISA EDDY PA-C Discharge Date: 08/17/20 - Discharge Diagnosis (1) Morbid obesity with BMI of 40.0-44.9, adult Is this a current diagnosis for this admission?: Yes (2) Chronic diastolic CHF (congestive heart failure) Is this a current diagnosis for this admission?: Yes (3) Generalized weakness Is this a current diagnosis for this admission?: Yes (4) Venous stasis of both lower extremities Is this a current diagnosis for this admission?: Yes (5) Venous stasis ulcer of ankle Is this a current diagnosis for this admission?: Yes (6) Acute kidney injury superimposed on chronic kidney disease Is this a current diagnosis for this admission?: Yes (7) Cellulitis of left lower extremity Is this a current diagnosis for this admission?: Yes (8) Hyperkalemia Is this a current diagnosis for this admission?: Yes - Assessment Summary: Mrs. JASMIN CONWAY is an obese 80 year old female with PMH of CAD, chronic diastolic CHF, HTN, HLD, CHON not on CPAP, atrial fibrillation and chronic venous stasis of BLE c/b venous stasis ulcers who presented to the ED with CC of LLE oozing/pain. She notes that she was recently hospitalized at [facility] for the same thing; while there, she was treated with Vancomycin IV and then transitioned to doxycycline PO on discharge. At home, she has been fatigued, sleeping all day long, lacking energy, feeling weak. She denies fevers and reports that she is always cold, but this is not new. She has had no sick contacts. She does have CHON but does not wear a CPAP. She has not had any falls. Her BLE swelling is not any worse than baseline, but she feels that her LLE ulcerations are oozing more and feel more painful recently. Pre-Renal KERON due to Dehydration: on admission, she appeared very dehydrated on exam: she had no JVD, no crackles on lung exam and her BLE swelling was better than usual. On admission, her BP was low to normal despite not taking any of her BP medications. She may have had a pre-renal KERON due to dehydration, although ATN due to labile BP and/or IV vancomycin causing nephrotoxicity could not be ruled out. Her home lasix was held during this admission, and was decreased from BID to daily on discharge. Nephrology was consulted. She received IVF hydration. A renal US showed no evidence of obstructive uropathy and she has had no evidence of retention during this hospital stay. Hyperkalemia: due to KERON, resolved with IVF, kayexalate and lactulose. Left ankle wrap-around venous stasis ulcerations: does not appear acutely infected (no surrounding erythema and no overlying pus). She recently completed a prolonged course of MRSA coverage. Her weeping and swelling have improved with leg elevation. She will need wound care follow up and daily wound dressings. She may benefit from compression wraps. Generalized Weakness, Fatigue: may be due to deconditioning due to recent hospitalization. PT and OT were consulted, and recommend SNF on discharge for ongoing PT, OT. CHON: not on CPAP at home. Would recommend an outpatient sleep study after discharge. atrial fibrillation: rate controlled. We continued her home Coreg and Eliquis. Essential HTN: labile. She has been having extremely low BP readings with the automatic cuff and extremely elevated BP readings when manually done. She is always asymptomatic. Her home lisinopril has been discontinued due to KERON, but may need to be added back in the future. DM2: HbA1c 6.6 - this is within goal given her advanced age and she does not require treatment for diabetes. Code Status: DNR/DNI - Additional Information Resuscitation Status: Do Not Resuscitate Discharge Diet: Cardiac Discharge Activity: Keep Legs Elevated, Walk Frequently, Weigh Daily Referrals: LISA EDDY PA-C [Primary Care Provider] - Follow up as needed Prescriptions: Furosemide [Lasix 40 mg Tablet] 40 mg PO DAILY #30 Home Medications: Tramadol HCl [Ultram 50 mg Tablet] 50 mg PO Q12HP PRN 03/19/18 Isosorbide Mononitrate [Imdur 30 mg Tablet.er] 30 mg PO DAILY 10/11/18 Nitroglycerin [Nitrostat 0.4 mg (1/150 Gr) Tabs 25/Bottle] 1 tab SL Q5MP PRN 10/11/18 Allopurinol [Zyloprim 100 mg Tablet] 100 mg PO DAILY 08/14/20 Apixaban [Eliquis 5 mg Tablet] 5 mg PO BID 08/14/20 Carvedilol [Coreg 12.5 mg Tablet] 12.5 mg PO Q12 08/14/20 Levothyroxine Sodium [Synthroid 0.15 mg Tablet] 150 mcg PO Q6AM 08/14/20 Omeprazole 20 mg PO DAILY 08/14/20 Acetaminophen [Tylenol 325 mg Tablet] 975 mg PO Q8 tablet 08/17/20 Furosemide [Lasix 40 mg Tablet] 40 mg PO DAILY #30 08/17/20 Mag Hydrox/Al Hydrox/Simeth [Maalox Plus Susp 30 Udcup] 30 ml PO Q6HP PRN udc 08/17/20 Melatonin [Melatonin 5 mg Tablet] 5 mg PO QHS tablet 08/17/20 Nystatin/Triamcin [Mycolog-II Cream 15 gm] 1 applic TP QID tube 08/17/20 History of Present Illiness History of Present Illness: Mrs. JASMIN CONWAY is a morbidly obese 80 year old female with PMH of CAD, chronic diastolic CHF, HTN, HLD, CHON not on CPAP, atrial fibrillation and chronic venous stasis of BLE c/b venous stasis ulcers who presents to the ED with CC of LLE oozing/pain. She notes that she was recently hospitalized at [facility] for the same thing; while there, she was treated with Vancomycin IV and then transitioned to doxycycline PO on discharge. At home, she has been fatigued, sleeping all day long, lacking energy, feeling weak. She denies fevers and reports that she is always cold, but this is not new. She has had no sick contacts. She does have CHON but does not wear a CPAP. She has not had any falls. Her BLE swelling is not any worse than baseline, but she feels that her LLE ulcerations are oozing more and feel more painful recently. Her only recent change in medications is that her Lasix dose was decreased from 80 mg BID to 40 mg BID about 2 weeks ago. She lives in a multi-generational home with her daughter, grand-daughter. She walks with a walker. She has lots of support at home. No trouble getting/taking medications. She is not followed by wound care currently, but had an appointment to be seen at the wound care clinic tomorrow to establish care. Physical Exam Vital Signs: Temp Pulse Resp BP Pulse Ox 98.2 F 88 18 111/55 L 95 08/17/20 04:21 08/17/20 04:21 08/17/20 04:21 08/17/20 04:21 08/17/20 04:21 Intake & Output 08/16/20 08/17/20 08/18/20 06:59 06:59 06:59 Intake Total 2610 1770 Output Total 1250 200 Balance 1360 1570 Weight 102.3 kg 81.5 kg Results Laboratory Results: WBC 9.8 10^3/uL (4.0-10.5) 08/17/20 06:35 RBC 3.04 10^6/uL (3.72-5.28) L 08/17/20 06:35 Hgb 10.1 g/dL (12.0-15.5) L 08/17/20 06:35 Hct 30.8 % (36.0-47.0) L 08/17/20 06:35 MCV 101 fl (80-97) H 08/17/20 06:35 MCH 33.0 pg (27.0-33.4) 08/17/20 06:35 MCHC 32.6 g/dL (32.0-36.0) 08/17/20 06:35 RDW 14.7 % (11.5-14.0) H 08/17/20 06:35 Plt Count 158 10^3/uL (150-450) 08/17/20 06:35 Lymph % (Auto) 23.7 % (13-45) 08/14/20 13:48 [place] % (Auto) 11.6 % (3-13) 08/14/20 13:48 Eos % (Auto) 0.9 % (0-6) 08/14/20 13:48 Baso % (Auto) 0.8 % (0-2) 08/14/20 13:48 Reticulocyte # 0.069 10^6/uL (0.028-0.122) 08/17/20 06:35 Absolute Neuts (auto) 5.7 10^3/uL (1.7-8.2) 08/14/20 13:48 Absolute Lymphs (auto) 2.2 10^3/uL (0.5-4.7) 08/14/20 13:48 Absolute Monos (auto) 1.1 10^3/uL (0.1-1.4) 08/14/20 13:48 Absolute Eos (auto) 0.1 10^3/uL (0.0-0.6) 08/14/20 13:48 Absolute Basos (auto) 0.1 10^3/uL (0.0-0.2) 08/14/20 13:48 Seg Neutrophils % 63.0 % (42-78) 08/14/20 13:48 Retic Count (auto) 2.25 % (0.66-2.85) 08/17/20 06:35 Sodium 143.3 mmol/L (137-145) 08/17/20 06:35 Potassium 3.9 mmol/L (3.6-5.0) 08/17/20 06:35 Chloride 112 mmol/L (98-107) H 08/17/20 06:35 Carbon Dioxide 24 mmol/L (22-30) 08/17/20 06:35 Anion Gap 7 (5-19) 08/17/20 06:35 BUN 70 mg/dL (7-20) H 08/17/20 06:35 Creatinine 1.76 mg/dL (0.52-1.25) H 08/17/20 06:35 Est GFR ( Amer) 34 (>60) L 08/17/20 06:35 Est GFR (MDRD) Non-Af 28 (>60) L 08/17/20 06:35 Glucose 117 mg/dL (75-110) H 08/17/20 06:35 Hemoglobin A1c % 6.6 % (4.7-6.0) H 08/15/20 04:14 Lactic Acid 0.6 mmol/L (0.7-2.1) L 08/14/20 13:48 Calcium 8.4 mg/dL (8.4-10.2) 08/17/20 06:35 Magnesium 1.5 mg/dL (1.6-2.3) L 08/17/20 06:35 Iron 18.9 ug/dL (37-170) L 08/17/20 06:35 TIBC 213 ug/dL (250-450) L 08/17/20 06:35 % Saturation 9 % 08/17/20 06:35 Ferritin 453.00 ng/mL (11.1-264.0) H 08/17/20 06:35 Total Bilirubin 0.5 mg/dL (0.2-1.3) 08/14/20 13:48 Direct Bilirubin 0.5 mg/dL (0.0-0.4) H 08/14/20 13:48 Neonat Total Bilirubin Not Reportable 08/14/20 13:48 Neonat Direct Bilirubin Not Reportable 08/14/20 13:48 Neonat Indirect Bili Not Reportable 08/14/20 13:48 AST 20 U/L (14-36) 08/14/20 13:48 ALT 9 U/L (<35) 08/14/20 13:48 Alkaline Phosphatase 107 U/L (38-126) 08/14/20 13:48 Total Protein 7.3 g/dL (6.3-8.2) 08/14/20 13:48 Albumin 3.7 g/dL (3.5-5.0) 08/14/20 13:48 Vitamin B12 619.0 pg/mL (239-931) 08/17/20 06:35 Folate 8.90 ng/mL (>2.76) 08/17/20 06:35 TSH 4.83 uIU/mL (0.47-4.68) H 08/15/20 04:14 Impressions: Chest X-Ray 08/14/20 00:00 IMPRESSION: No acute disease. copyright 2011 [employer]- All Rights Reserved Venous Doppler Study 08/14/20 13:26 IMPRESSION: NO EVIDENCE OF DVT OR SVT IN THE LEFT LEG. Ankle X-Ray 08/14/20 13:27 IMPRESSION: Circumferential soft tissue edema without findings to suggest underlying osteomyelitis. No acute injury. Renal Ultrasound 08/15/20 00:00 IMPRESSION: Very limited study. Small echogenic right kidney. The left kidney cannot be visualized. Stroke Is this a Stroke Patient?: No Acute Heart Failure Is this a Heart Failure Patient?: No
[2020-08-17] MEDS: CEFTRIAXONE 1 GM/D5W RTU 1 GM/50 ML RTUPB IV SCH (17:32)
--- NOTE | 2020-08-17 17:35 | PDOC PROGRESS REPORT ---
Subjective Progress Note for:: 08/17/20 Subjective:: She is feeling tired/weak. Denies SOB/BUTTS. Her BLE edema is improving daily. She was able to sit up in a chair for several hours today. Reason For Visit: KERON,HYPERKALEMIA,LEFT LOWER EXTREMITY CELLULITIS Physical Exam Vital Signs: Temp Pulse Resp BP Pulse Ox 98.2 F 88 18 111/55 L 95 08/17/20 10:00 08/17/20 04:21 08/17/20 04:21 08/17/20 04:21 08/17/20 04:21 Intake & Output 08/16/20 08/17/20 08/18/20 06:59 06:59 06:59 Intake Total 2610 1770 Output Total 1250 200 Balance 1360 1570 Weight 102.3 kg 81.5 kg General appearance: PRESENT: no acute distress, cooperative Eye exam: ABSENT: scleral icterus Mouth exam: PRESENT: moist Neck exam: ABSENT: JVD Respiratory exam: PRESENT: clear to auscultation alfreda, prolonged expiratory phas, unlabored GI/Abdominal exam: PRESENT: normal bowel sounds, soft Extremities exam: PRESENT: +1 edema, other - LLE wrapped Neurological exam: PRESENT: alert, awake, oriented to person, oriented to place, oriented to time, oriented to situation Psychiatric exam: PRESENT: appropriate affect Skin exam: ABSENT: rash Results Laboratory Results: 08/17/20 06:35 08/17/20 06:35 08/16/20 08/17/20 08/17/20 18:41 06:35 06:35 WBC 9.8 RBC 3.04 L Hgb 10.1 L Hct 30.8 L MCV 101 H MCH 33.0 MCHC 32.6 RDW 14.7 H Plt Count 158 Retic Count (auto) 2.25 Sodium 143.8 Potassium 3.9 Chloride 112 H Carbon Dioxide 25 Anion Gap 7 BUN 74 H Creatinine 1.94 H Est GFR ( Amer) 30 L Glucose 130 H Calcium 8.3 L Magnesium 1.5 L Iron 18.9 L TIBC 213 L % Saturation 9 Ferritin 453.00 H Vitamin B12 619.0 Folate 8.90 08/17/20 06:35 WBC RBC Hgb Hct MCV MCH MCHC RDW Plt Count Retic Count (auto) Sodium 143.3 Potassium 3.9 Chloride 112 H Carbon Dioxide 24 Anion Gap 7 BUN 70 H Creatinine 1.76 H Est GFR ( Amer) 34 L Glucose 117 H Calcium 8.4 Magnesium Iron TIBC % Saturation Ferritin Vitamin B12 Folate Impressions: Chest X-Ray 08/14/20 00:00 IMPRESSION: No acute disease. copyright 2010 [email or web address]- All Rights Reserved Venous Doppler Study 08/14/20 13:26 IMPRESSION: NO EVIDENCE OF DVT OR SVT IN THE LEFT LEG. Ankle X-Ray 08/14/20 13:27 IMPRESSION: Circumferential soft tissue edema without findings to suggest underlying osteomyelitis. No acute injury. Renal Ultrasound 08/15/20 00:00 IMPRESSION: Very limited study. Small echogenic right kidney. The left kidney cannot be visualized. Assessment and Plan - Diagnosis (1) Morbid obesity with BMI of 40.0-44.9, adult Is this a current diagnosis for this admission?: Yes (2) Chronic diastolic CHF (congestive heart failure) Is this a current diagnosis for this admission?: Yes (3) Generalized weakness Is this a current diagnosis for this admission?: Yes (4) Venous stasis of both lower extremities Is this a current diagnosis for this admission?: Yes (5) Venous stasis ulcer of ankle Qualifiers: Varicose vein presence: unspecified whether present Laterality: left Non-pressure ulcer stage: limited to breakdown of skin Qualified Code(s): I83.023 - Varicose veins of left lower extremity with ulcer of ankle; L97.321 - Non-pressure chronic ulcer of left ankle limited to breakdown of skin Is this a current diagnosis for this admission?: Yes (6) Acute kidney injury superimposed on chronic kidney disease Is this a current diagnosis for this admission?: Yes (7) Cellulitis of left lower extremity Is this a current diagnosis for this admission?: Yes (8) Hyperkalemia Is this a current diagnosis for this admission?: Yes - Plan Summary Summary: Mrs. JASMIN CONWAY is an obese 80 year old female with PMH of CAD, chronic diastolic CHF, HTN, HLD, CHON not on CPAP, atrial fibrillation and chronic venous stasis of BLE c/b venous stasis ulcers who presented to the ED with CC of LLE oozing/pain. She notes that she was recently hospitalized at [facility] for the same thing; while there, she was treated with Vancomycin IV and then transitioned to doxycycline PO on discharge. At home, she has been fatigued, sleeping all day long, lacking energy, feeling weak. She denies fevers and reports that she is always cold, but this is not new. She has had no sick contacts. She does have CHON but does not wear a CPAP. She has not had any falls. Her BLE swelling is not any worse than baseline, but she feels that her LLE ulcerations are oozing more and feel more painful recently. Pre-Renal KERON due to Dehydration: on admission, she appeared very dehydrated on exam: she had no JVD, no crackles on lung exam and her BLE swelling was better than usual. On admission, her BP was low to normal despite not taking any of her BP medications. She may have had a pre-renal KERON due to dehydration, although ATN due to labile BP and/or IV vancomycin causing nephrotoxicity could not be ruled out. Her home lasix was held during this admission, and was decreased from BID to daily on discharge. Nephrology was consulted. She received IVF hydration. A renal US showed no evidence of obstructive uropathy and she has had no evidence of retention during this hospital stay. Hyperkalemia: due to KERON, resolved with IVF, kayexalate and lactulose. Left ankle wrap-around venous stasis ulcerations: does not appear acutely infected (no surrounding erythema and no overlying pus). She recently completed a prolonged course of MRSA coverage. Her weeping and swelling have improved with leg elevation. She will need wound care follow up and daily wound dressings. She may benefit from compression wraps. Generalized Weakness, Fatigue: may be due to deconditioning due to recent hospitalization. PT and OT were consulted, and recommend SNF on discharge for ongoing PT, OT. CHON: not on CPAP at home. Would recommend an outpatient sleep study after discharge. atrial fibrillation: rate controlled. We continued her home Coreg and Eliquis. Essential HTN: labile. She has been having extremely low BP readings with the automatic cuff and extremely elevated BP readings when manually done. She is always asymptomatic. Her home lisinopril has been discontinued due to KERON, but may need to be added back in the future, depending on her BP. DM2: HbA1c 6.6 - this is within goal given her advanced age and she does not require treatment for diabetes. Code Status: DNR/DNI - Time Time Spent with patient: 35 or more minutes Anticipated Discharge Disposition: [facility] Facility Anticipated Discharge Timeframe: within 24 hours
[2020-08-17] MEDS: NORMAL SALINE 1000 ML 1,000 ML IV PRN (18:24)
[2020-08-17] MEDS: MELATONIN 5 MG TABLET PO SCH (21:06)
[2020-08-18] MEDS: OXYCODONE HCL IR 5 MG TABLET PO PRN ×3 (02:25→20:28)
[2020-08-18] MEDS: LEVOTHYROXINE SODIUM 0.15 MG TABLET PO SCH (05:43)
[2020-08-18] MEDS: ACETAMINOPHEN 325 MG TABLET PO SCH ×3 (05:43→21:39)
[2020-08-18] MEDS: PANTOPRAZOLE SODIUM 40 MG TABLET.DR PO SCH (05:43)
[2020-08-18] MEDS: NORMAL SALINE 1000 ML 1,000 ML IV PRN (05:44)
[2020-08-18 08:57] LABS: ANION GAP 8 (5-19); BLOOD UREA NITROGEN 63 mg/dL (7-20); CALCIUM 8.5 mg/dL (8.4-10.2); CARBON DIOXIDE 23 mmol/L (22-30); CHLORIDE 113 mmol/L (98-107); GLUCOSE 115 mg/dL (75-110); POTASSIUM 4.1 mmol/L (3.6-5.0)
--- NOTE | 2020-08-18 09:10 | PDOC TRANSFER SUMMARY ---
Impression - Admit/DC Date/PCP Admission Date/Primary Care Provider: 08/14/20 17:38 LISA EDDY PA-C Discharge Date: 08/18/20 - Discharge Diagnosis (1) Morbid obesity with BMI of 40.0-44.9, adult Is this a current diagnosis for this admission?: Yes (2) Chronic diastolic CHF (congestive heart failure) Is this a current diagnosis for this admission?: Yes (3) Generalized weakness Is this a current diagnosis for this admission?: Yes (4) Venous stasis of both lower extremities Is this a current diagnosis for this admission?: Yes (5) Venous stasis ulcer of ankle Is this a current diagnosis for this admission?: Yes (6) Acute kidney injury superimposed on chronic kidney disease Is this a current diagnosis for this admission?: Yes (7) Cellulitis of left lower extremity Is this a current diagnosis for this admission?: Yes (8) Hyperkalemia Is this a current diagnosis for this admission?: Yes - Assessment Summary: Mrs. JASMIN CONWAY is an obese 80 year old female with PMH of CAD, chronic diastolic CHF, HTN, HLD, CHON not on CPAP, atrial fibrillation and chronic venous stasis of BLE c/b venous stasis ulcers who presented to the ED with CC of LLE oozing/pain. She notes that she was recently hospitalized at [facility] for the same thing; while there, she was treated with Vancomycin IV and then transitioned to doxycycline PO on discharge. At home, she has been fatigued, sleeping all day long, lacking energy, feeling weak. She denies fevers and reports that she is always cold, but this is not new. She has had no sick contacts. She does have CHON but does not wear a CPAP. She has not had any falls. Her BLE swelling is not any worse than baseline, but she feels that her LLE ulcerations are oozing more and feel more painful recently. Pre-Renal KERON due to Dehydration: on admission, she appeared very dehydrated on exam: she had no JVD, no crackles on lung exam and her BLE swelling was better than usual. On admission, her BP was low to normal despite not taking any of her BP medications. She may have had a pre-renal KERON due to dehydration, although ATN due to labile BP and/or IV vancomycin causing nephrotoxicity could not be ruled out. Her home lasix was held during this admission, and was decreased from BID to daily on discharge. Nephrology was consulted. She received IVF hydration. A renal US showed no evidence of obstructive uropathy and she has had no evidence of retention during this hospital stay. Hyperkalemia: due to KERON, resolved with IVF, kayexalate and lactulose. Left ankle wrap-around venous stasis ulcerations: does not appear acutely infected (no surrounding erythema and no overlying pus). She recently completed a prolonged course of MRSA coverage. Her weeping and swelling have improved with leg elevation. She will need wound care follow up and daily wound dressings. She may benefit from compression wraps. Generalized Weakness, Fatigue: may be due to deconditioning due to recent hospitalization. PT and OT were consulted, and recommend SNF on discharge for ongoing PT, OT. CHON: not on CPAP at home. Would recommend an outpatient sleep study after discharge. atrial fibrillation: rate controlled. We continued her home Coreg and Eliquis. Essential HTN: labile. She has been having extremely low BP readings with the automatic cuff and extremely elevated BP readings when manually done. She is always asymptomatic. Her home lisinopril has been discontinued due to KERON, but may need to be added back in the future, depending on her BP. DM2: HbA1c 6.6 - this is within goal given her advanced age and she does not require treatment for diabetes. Code Status: DNR/DNI - Additional Information Resuscitation Status: Do Not Resuscitate Discharge Diet: Cardiac Discharge Activity: Keep Legs Elevated, Walk Frequently, Weigh Daily Referrals: WOUND CARE [Outside] (PT HAD APPT ON 08/14/20) LISA EDDY PA-C [Primary Care Provider] - (Left a message with the provider's office and they will contact you to schedule a follow-up appointment. Thank you and have a fabulous day!) Prescriptions: Furosemide [Lasix 40 mg Tablet] 40 mg PO DAILY #30 Home Medications: Tramadol HCl [Ultram 50 mg Tablet] 50 mg PO Q12HP PRN 03/19/18 Isosorbide Mononitrate [Imdur 30 mg Tablet.er] 30 mg PO DAILY 10/11/18 Nitroglycerin [Nitrostat 0.4 mg (1/150 Gr) Tabs 25/Bottle] 1 tab SL Q5MP PRN 10/11/18 Allopurinol [Zyloprim 100 mg Tablet] 100 mg PO DAILY 08/14/20 Apixaban [Eliquis 5 mg Tablet] 5 mg PO BID 08/14/20 Carvedilol [Coreg 12.5 mg Tablet] 12.5 mg PO Q12 08/14/20 Levothyroxine Sodium [Synthroid 0.15 mg Tablet] 150 mcg PO Q6AM 08/14/20 Omeprazole 20 mg PO DAILY 08/14/20 Acetaminophen [Tylenol 325 mg Tablet] 975 mg PO Q8 tablet 08/17/20 Furosemide [Lasix 40 mg Tablet] 40 mg PO DAILY #30 08/17/20 Mag Hydrox/Al Hydrox/Simeth [Maalox Plus Susp 30 Udcup] 30 ml PO Q6HP PRN udc 08/17/20 Melatonin [Melatonin 5 mg Tablet] 5 mg PO QHS tablet 08/17/20 Nystatin/Triamcin [Mycolog-II Cream 15 gm] 1 applic TP QID tube 08/17/20 History of Present Illiness History of Present Illness: Mrs. JASMIN CONWAY is a morbidly obese 80 year old female with PMH of CAD, chronic diastolic CHF, HTN, HLD, CHON not on CPAP, atrial fibrillation and chronic venous stasis of BLE c/b venous stasis ulcers who presents to the ED with CC of LLE oozing/pain. She notes that she was recently hospitalized at [facility] for the same thing; while there, she was treated with Vancomycin IV and then transitioned to doxycycline PO on discharge. At home, she has been fatigued, sleeping all day long, lacking energy, feeling weak. She denies fevers and reports that she is always cold, but this is not new. She has had no sick contacts. She does have CHON but does not wear a CPAP. She has not had any falls. Her BLE swelling is not any worse than baseline, but she feels that her LLE ulcerations are oozing more and feel more painful recently. Her only recent change in medications is that her Lasix dose was decreased from 80 mg BID to 40 mg BID about 2 weeks ago. She lives in a multi-generational home with her daughter, grand-daughter. She walks with a walker. She has lots of support at home. No trouble getting/taking medications. She is not followed by wound care currently, but had an appointment to be seen at the wound care clinic tomorrow to establish care. Physical Exam Vital Signs: Temp Pulse Resp BP Pulse Ox 97.5 F 78 18 117/75 100 08/18/20 03:37 08/18/20 03:37 08/18/20 03:37 08/18/20 03:37 08/18/20 03:37 Intake & Output 08/17/20 08/18/20 08/19/20 06:59 06:59 06:59 Intake Total 1770 1792 Output Total 200 Balance 1570 1792 Weight 81.5 kg 98.1 kg Results Laboratory Results: WBC 9.8 10^3/uL (4.0-10.5) 08/17/20 06:35 RBC 3.04 10^6/uL (3.72-5.28) L 08/17/20 06:35 Hgb 10.1 g/dL (12.0-15.5) L 08/17/20 06:35 Hct 30.8 % (36.0-47.0) L 08/17/20 06:35 MCV 101 fl (80-97) H 08/17/20 06:35 MCH 33.0 pg (27.0-33.4) 08/17/20 06:35 MCHC 32.6 g/dL (32.0-36.0) 08/17/20 06:35 RDW 14.7 % (11.5-14.0) H 08/17/20 06:35 Plt Count 158 10^3/uL (150-450) 08/17/20 06:35 Lymph % (Auto) 23.7 % (13-45) 08/14/20 13:48 [place] % (Auto) 11.6 % (3-13) 08/14/20 13:48 Eos % (Auto) 0.9 % (0-6) 08/14/20 13:48 Baso % (Auto) 0.8 % (0-2) 08/14/20 13:48 Reticulocyte # 0.069 10^6/uL (0.028-0.122) 08/17/20 06:35 Absolute Neuts (auto) 5.7 10^3/uL (1.7-8.2) 08/14/20 13:48 Absolute Lymphs (auto) 2.2 10^3/uL (0.5-4.7) 08/14/20 13:48 Absolute Monos (auto) 1.1 10^3/uL (0.1-1.4) 08/14/20 13:48 Absolute Eos (auto) 0.1 10^3/uL (0.0-0.6) 08/14/20 13:48 Absolute Basos (auto) 0.1 10^3/uL (0.0-0.2) 08/14/20 13:48 Seg Neutrophils % 63.0 % (42-78) 08/14/20 13:48 Retic Count (auto) 2.25 % (0.66-2.85) 08/17/20 06:35 Sodium 143.5 mmol/L (137-145) 08/18/20 08:05 Potassium 4.1 mmol/L (3.6-5.0) 08/18/20 08:05 Chloride 113 mmol/L (98-107) H 08/18/20 08:05 Carbon Dioxide 23 mmol/L (22-30) 08/18/20 08:05 Anion Gap 8 (5-19) 08/18/20 08:05 BUN 63 mg/dL (7-20) H 08/18/20 08:05 Creatinine 1.75 mg/dL (0.52-1.25) H 08/18/20 08:05 Est GFR ( Amer) 34 (>60) L 08/18/20 08:05 Est GFR (MDRD) Non-Af 28 (>60) L 08/18/20 08:05 Glucose 115 mg/dL (75-110) H 08/18/20 08:05 POC Glucose 135 mg/dL (70-110) H 08/17/20 16:36 Hemoglobin A1c % 6.6 % (4.7-6.0) H 08/15/20 04:14 Lactic Acid 0.6 mmol/L (0.7-2.1) L 08/14/20 13:48 Calcium 8.5 mg/dL (8.4-10.2) 08/18/20 08:05 Magnesium 1.7 mg/dL (1.6-2.3) 08/18/20 08:05 Iron 18.9 ug/dL (37-170) L 08/17/20 06:35 TIBC 213 ug/dL (250-450) L 08/17/20 06:35 % Saturation 9 % 08/17/20 06:35 Ferritin 453.00 ng/mL (11.1-264.0) H 08/17/20 06:35 Total Bilirubin 0.5 mg/dL (0.2-1.3) 08/14/20 13:48 Direct Bilirubin 0.5 mg/dL (0.0-0.4) H 08/14/20 13:48 Neonat Total Bilirubin Not Reportable 08/14/20 13:48 Neonat Direct Bilirubin Not Reportable 08/14/20 13:48 Neonat Indirect Bili Not Reportable 08/14/20 13:48 AST 20 U/L (14-36) 08/14/20 13:48 ALT 9 U/L (<35) 08/14/20 13:48 Alkaline Phosphatase 107 U/L (38-126) 08/14/20 13:48 Total Protein 7.3 g/dL (6.3-8.2) 08/14/20 13:48 Albumin 3.7 g/dL (3.5-5.0) 08/14/20 13:48 Vitamin B12 619.0 pg/mL (239-931) 08/17/20 06:35 Folate 8.90 ng/mL (>2.76) 08/17/20 06:35 TSH 4.83 uIU/mL (0.47-4.68) H 08/15/20 04:14 Impressions: Chest X-Ray 08/14/20 00:00 IMPRESSION: No acute disease. copyright 2011 [employer]- All Rights Reserved Venous Doppler Study 08/14/20 13:26 IMPRESSION: NO EVIDENCE OF DVT OR SVT IN THE LEFT LEG. Ankle X-Ray 08/14/20 13:27 IMPRESSION: Circumferential soft tissue edema without findings to suggest underlying osteomyelitis. No acute injury. Renal Ultrasound 08/15/20 00:00 IMPRESSION: Very limited study. Small echogenic right kidney. The left kidney cannot be visualized. Stroke Is this a Stroke Patient?: No Acute Heart Failure Is this a Heart Failure Patient?: No
--- NOTE | 2020-08-18 09:23 | PDOC PROGRESS REPORT ---
Subjective Progress Note for:: 08/17/20 Subjective:: Patient is lying down in bed and is not very comfortable and wanting to be propped up. She said she was nauseous last night but better this morning. Her appetite is still decreased. Urine output is probably not accurately recorded. She still feels tired and weak. Arrangements are being made for half-way facility placement. Reason For Visit: KERON,HYPERKALEMIA,LEFT LOWER EXTREMITY CELLULITIS Physical Exam Vital Signs: Temp Pulse Resp BP Pulse Ox 97.8 F 88 16 90/70 L 96 08/16/20 23:26 08/17/20 02:00 08/16/20 23:26 08/16/20 23:26 08/16/20 23:26 Intake & Output 08/16/20 08/17/20 08/18/20 06:59 06:59 06:59 Intake Total 2610 1770 Output Total 1250 200 Balance 1360 1570 Weight 102.3 kg 81.5 kg Exam: General appearance: PRESENT: no acute distress, cooperative, well-developed, well-nourished Head exam: PRESENT: atraumatic, normocephalic Eye exam: PRESENT: conjunctiva slightly pale, PERRLA. ABSENT: scleral icterus Neck exam: ABSENT: JVD Respiratory exam: PRESENT: Diminished breath sounds. ABSENT: crackles, rales, rhonchi, unlabored, wheezes Cardiovascular exam: PRESENT: Regular rate rhythm -+S1, +S2. ABSENT: diastolic murmur, systolic murmur GI/Abdominal exam: PRESENT: normal bowel sounds, soft. ABSENT: guarding, mass, tenderness Extremities exam: Left lower extremity edema associated with cellulitis Neurological exam: PRESENT: alert, awake, oriented to person, place and time. Skin exam: PRESENT: dry, warm, Cardiovascular exam: PRESENT: +S1, +S2 GI/Abdominal exam: PRESENT: soft. ABSENT: ascites, distended, tenderness Results Laboratory Results: 08/17/20 06:35 08/16/20 18:41 08/16/20 08/17/20 08/17/20 18:41 06:35 06:35 WBC 9.8 RBC 3.04 L Hgb 10.1 L Hct 30.8 L MCV 101 H MCH 33.0 MCHC 32.6 RDW 14.7 H Plt Count 158 Retic Count (auto) 2.25 Sodium 143.8 Potassium 3.9 Chloride 112 H Carbon Dioxide 25 Anion Gap 7 BUN 74 H Creatinine 1.94 H Est GFR ( Amer) 30 L Glucose 130 H Calcium 8.3 L Magnesium 1.5 L Iron 18.9 L TIBC 213 L % Saturation 9 Ferritin 453.00 H Vitamin B12 619.0 Folate 8.90 Impressions: Chest X-Ray 08/14/20 00:00 IMPRESSION: No acute disease. copyright 2010 [employer]- All Rights Reserved Venous Doppler Study 08/14/20 13:26 IMPRESSION: NO EVIDENCE OF DVT OR SVT IN THE LEFT LEG. Ankle X-Ray 08/14/20 13:27 IMPRESSION: Circumferential soft tissue edema without findings to suggest underlying osteomyelitis. No acute injury. Renal Ultrasound 08/15/20 00:00 IMPRESSION: Very limited study. Small echogenic right kidney. The left kidney cannot be visualized. Assessment & Plan - Diagnosis (1) Acute kidney injury superimposed on chronic kidney disease Is this a current diagnosis for this admission?: Yes Plan: Secondary to acute prerenal azotemia with dehydration. Kidney ultrasound showed small right kidney at 8.5 cm previously at 10.6 cm. Increased echogenicity in the right kidney with no hydronephrosis. The left kidney was not visualized either due to the patient's body habitus or due to atrophy or congenital absence. Kidney function is improving with IV fluid hydration. Baseline creatinine was 0.May. Continue the same. We will sign off at this time. Please call us for any questions or if we can be of any further help. (2) Cellulitis of left lower extremity Is this a current diagnosis for this admission?: Yes Plan: On IV ceftriaxone. Per hospitalist service. (3) Anemia Qualifiers: Anemia type: iron deficiency Is this a current diagnosis for this admission?: Yes Plan: Iron is low at 18.9 with Tsat of 9 although ferritin is 453. Add ferrous sulfate supplement. (4) Generalized weakness Is this a current diagnosis for this admission?: Yes Plan: Agree with half-way facility placement for physical and occupational therapy. (5) Chronic diastolic CHF (congestive heart failure) Is this a current diagnosis for this admission?: Yes Plan: Compensated currently. (6) Venous stasis of both lower extremities Is this a current diagnosis for this admission?: Yes (7) Atrial fibrillation Qualifiers: Atrial fibrillation type: unspecified Qualified Code(s): I48.91 - Unspecified atrial fibrillation Is this a current diagnosis for this admission?: Yes Plan: Rate controlled. 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 Hold blood pressure medications as needed. (10) Hyperkalemia Is this a current diagnosis for this admission?: Yes Plan: Resolved. (11) Morbid obesity with BMI of 40.0-44.9, adult Is this a current diagnosis for this admission?: Yes - Notes Notes: We will sign off.
[2020-08-18] MEDS: ALLOPURINOL 100 MG TABLET PO SCH (11:26)
[2020-08-18] MEDS: ISOSORBIDE MONONITRATE 60 MG TAB.ER.24H PO SCH (11:27)
[2020-08-18] MEDS: CARVEDILOL 12.5 MG TABLET PO SCH ×2 (11:27→21:38)
[2020-08-18] MEDS: APIXABAN 2.5 MG TABLET PO SCH ×2 (11:28→17:55)
[2020-08-18] MEDS: NYSTATIN/TRIAMCIN CREAM 15 GM TP SCH ×4 (11:44→21:39)
[2020-08-18] MEDS ORDERED: FUROSEMIDE 40 MG TABLET PO ONE (16:25)
--- NOTE | 2020-08-18 16:27 | PDOC PROGRESS REPORT ---
Subjective Progress Note for:: 08/18/20 Subjective:: She feels well. She has no concerns. Reason For Visit: KERON,HYPERKALEMIA,LEFT LOWER EXTREMITY CELLULITIS Physical Exam Vital Signs: Temp Pulse Resp BP Pulse Ox 97.9 F 74 16 101/57 L 94 08/18/20 12:28 08/18/20 12:28 08/18/20 12:28 08/18/20 12:28 08/18/20 12:28 Intake & Output 08/17/20 08/18/20 08/19/20 06:59 06:59 06:59 Intake Total 1770 1792 120 Output Total 200 Balance 1570 1792 120 Weight 81.5 kg 98.1 kg General appearance: PRESENT: no acute distress Eye exam: ABSENT: scleral icterus Neck exam: ABSENT: JVD Respiratory exam: PRESENT: clear to auscultation alfreda, unlabored Cardiovascular exam: PRESENT: RRR GI/Abdominal exam: PRESENT: normal bowel sounds, soft Extremities exam: PRESENT: +1 edema Neurological exam: PRESENT: alert, awake Psychiatric exam: PRESENT: appropriate affect Results Laboratory Results: 08/17/20 06:35 08/18/20 08:05 08/18/20 08:05 Sodium 143.5 Potassium 4.1 Chloride 113 H Carbon Dioxide 23 Anion Gap 8 BUN 63 H Creatinine 1.75 H Est GFR ( Amer) 34 L Glucose 115 H Calcium 8.5 Magnesium 1.7 Impressions: Chest X-Ray 08/14/20 00:00 IMPRESSION: No acute disease. copyright 2010 [employer]- All Rights Reserved Venous Doppler Study 08/14/20 13:26 IMPRESSION: NO EVIDENCE OF DVT OR SVT IN THE LEFT LEG. Ankle X-Ray 08/14/20 13:27 IMPRESSION: Circumferential soft tissue edema without findings to suggest underlying osteomyelitis. No acute injury. Renal Ultrasound 08/15/20 00:00 IMPRESSION: Very limited study. Small echogenic right kidney. The left kidney cannot be visualized. Assessment and Plan - Diagnosis (1) Morbid obesity with BMI of 40.0-44.9, adult Is this a current diagnosis for this admission?: Yes (2) Chronic diastolic CHF (congestive heart failure) Is this a current diagnosis for this admission?: Yes (3) Generalized weakness Is this a current diagnosis for this admission?: Yes (4) Venous stasis of both lower extremities Is this a current diagnosis for this admission?: Yes (5) Venous stasis ulcer of ankle Qualifiers: Varicose vein presence: unspecified whether present Laterality: left Non- pressure ulcer stage: limited to breakdown of skin Qualified Code(s): I83.023 - Varicose veins of left lower extremity with ulcer of ankle; L97.321 - Non- pressure chronic ulcer of left ankle limited to breakdown of skin Is this a current diagnosis for this admission?: Yes (6) Acute kidney injury superimposed on chronic kidney disease Is this a current diagnosis for this admission?: Yes (7) Cellulitis of left lower extremity Is this a current diagnosis for this admission?: Yes (8) Hyperkalemia Is this a current diagnosis for this admission?: Yes - Plan Summary Summary: Mrs. JASMIN CONWAY is an obese 80 year old female with PMH of CAD, chronic diastolic CHF, HTN, HLD, CHON not on CPAP, atrial fibrillation and chronic venous stasis of BLE c/b venous stasis ulcers who presented to the ED with CC of LLE oozing/pain. She notes that she was recently hospitalized at [facility] for the same thing; while there, she was treated with Vancomycin IV and then transitioned to doxycycline PO on discharge. At home, she has been fatigued, sleeping all day long, lacking energy, feeling weak. She denies fevers and reports that she is always cold, but this is not new. She has had no sick contacts. She does have CHON but does not wear a CPAP. She has not had any falls. Her BLE swelling is not any worse than baseline, but she feels that her LLE ulcerations are oozing more and feel more painful recently. Pre-Renal KERON due to Dehydration: on admission, she appeared very dehydrated on exam: she had no JVD, no crackles on lung exam and her BLE swelling was better than usual. On admission, her BP was low to normal despite not taking any of her BP medications. She may have had a pre-renal KERON due to dehydration, although ATN due to labile BP and/or IV vancomycin causing nephrotoxicity could not be ruled out. Her home lasix was held during this admission, and was decreased from BID to daily on discharge. Nephrology was consulted. She received IVF hydration. A renal US showed no evidence of obstructive uropathy and she has had no evidence of retention during this hospital stay. Hyperkalemia: due to KERON, resolved with IVF, kayexalate and lactulose. Left ankle wrap-around venous stasis ulcerations: does not appear acutely infected (no surrounding erythema and no overlying pus). She recently completed a prolonged course of MRSA coverage. Her weeping and swelling have improved with leg elevation. She will need wound care follow up and daily wound dressings. She may benefit from compression wraps. Generalized Weakness, Fatigue: may be due to deconditioning due to recent hospitalization. PT and OT were consulted, and recommend SNF on discharge for ongoing PT, OT. CHON: not on CPAP at home. Would recommend an outpatient sleep study after discharge. atrial fibrillation: rate controlled. We continued her home Coreg and Eliquis. Essential HTN: labile. She has been having extremely low BP readings with the automatic cuff and extremely elevated BP readings when manually done. She is al ways asymptomatic. Her home lisinopril has been discontinued due to EKRON, but may need to be added back in the future, depending on her BP. DM2: HbA1c 6.6 - this is within goal given her advanced age and she does not require treatment for diabetes. Code Status: DNR/DNI - Time Time Spent with patient: 35 or more minutes Anticipated Discharge Disposition: Alf Facility Anticipated Discharge Timeframe: within 24 hours
[2020-08-18] MEDS: MELATONIN 5 MG TABLET PO SCH (21:38)
[2020-08-19] MEDS: LEVOTHYROXINE SODIUM 0.15 MG TABLET PO SCH (05:15)
[2020-08-19] MEDS: PANTOPRAZOLE SODIUM 40 MG TABLET.DR PO SCH (05:15)
[2020-08-19] MEDS: ACETAMINOPHEN 325 MG TABLET PO SCH ×2 (05:15→13:53)
--- NOTE | 2020-08-19 08:12 | PDOC TRANSFER SUMMARY ---
Impression - Admit/DC Date/PCP Admission Date/Primary Care Provider: 08/14/20 17:38 LISA EDDY PA-C Discharge Date: 08/19/20 - Discharge Diagnosis (1) Morbid obesity with BMI of 40.0-44.9, adult Is this a current diagnosis for this admission?: Yes (2) Chronic diastolic CHF (congestive heart failure) Is this a current diagnosis for this admission?: Yes (3) Generalized weakness Is this a current diagnosis for this admission?: Yes (4) Venous stasis of both lower extremities Is this a current diagnosis for this admission?: Yes (5) Venous stasis ulcer of ankle Is this a current diagnosis for this admission?: Yes (6) Acute kidney injury superimposed on chronic kidney disease Is this a current diagnosis for this admission?: Yes (7) Cellulitis of left lower extremity Is this a current diagnosis for this admission?: Yes (8) Hyperkalemia Is this a current diagnosis for this admission?: Yes - Assessment Summary: Mrs. JASMIN CONWAY is an obese 80 year old female with PMH of CAD, chronic diastolic CHF, HTN, HLD, CHON not on CPAP, atrial fibrillation and chronic venous stasis of BLE c/b venous stasis ulcers who presented to the ED with CC of LLE oozing/pain. She notes that she was recently hospitalized at [facility] for the same thing; while there, she was treated with Vancomycin IV and then transitioned to doxycycline PO on discharge. At home, she has been fatigued, sleeping all day long, lacking energy, feeling weak. She denies fevers and reports that she is always cold, but this is not new. She has had no sick contacts. She does have CHON but does not wear a CPAP. She has not had any falls. Her BLE swelling is not any worse than baseline, but she feels that her LLE ulcerations are oozing more and feel more painful recently. Pre-Renal KERON due to Dehydration: on admission, she appeared very dehydrated on exam: she had no JVD, no crackles on lung exam and her BLE swelling was better than usual. On admission, her BP was low to normal despite not taking any of her BP medications. She may have had a pre-renal KERON due to dehydration, although ATN due to labile BP and/or IV vancomycin causing nephrotoxicity could not be ruled out. Her home lasix was held during this admission, and was decreased from BID to daily on discharge. Nephrology was consulted. She received IVF hydration. A renal US showed no evidence of obstructive uropathy and she has had no evidence of retention during this hospital stay. Hyperkalemia: due to KERON, resolved with IVF, kayexalate and lactulose. Left ankle wrap-around venous stasis ulcerations: does not appear acutely infected (no surrounding erythema and no overlying pus). She recently completed a prolonged course of MRSA coverage. Her weeping and swelling have improved with leg elevation. She will need wound care follow up and daily wound dressings. She may benefit from compression wraps. Generalized Weakness, Fatigue: may be due to deconditioning due to recent hospitalization. PT and OT were consulted, and recommend SNF on discharge for ongoing PT, OT. CHON: not on CPAP at home. Would recommend an outpatient sleep study after discharge. atrial fibrillation: rate controlled. We continued her home Coreg and Eliquis. Essential HTN: labile. She has been having extremely low BP readings with the automatic cuff and elevated BP readings when manually done. She is always asymptomatic. Her home lisinopril has been discontinued due to KERON, but may need to be added back in the future, depending on her BP. DM2: HbA1c 6.6 - this is within goal given her advanced age and she does not require treatment for diabetes. Code Status: DNR/DNI - Additional Information Resuscitation Status: Do Not Resuscitate Discharge Diet: Cardiac Discharge Activity: Keep Legs Elevated, Walk Frequently, Weigh Daily Referrals: WOUND CARE [Outside] (PT HAD APPT ON 08/14/20) LISA EDDY PA-C [Primary Care Provider] - (Left a message with the provider's office and they will contact you to schedule a follow-up appointment. Thank you and have a fabulous day!) Prescriptions: Furosemide [Lasix 40 mg Tablet] 40 mg PO DAILY #30 Home Medications: Tramadol HCl [Ultram 50 mg Tablet] 50 mg PO Q12HP PRN 03/19/18 Isosorbide Mononitrate [Imdur 30 mg Tablet.er] 30 mg PO DAILY 10/11/18 Nitroglycerin [Nitrostat 0.4 mg (1/150 Gr) Tabs 25/Bottle] 1 tab SL Q5MP PRN 11/19/18 Allopurinol [Zyloprim 100 mg Tablet] 100 mg PO DAILY 08/14/20 Apixaban [Eliquis 5 mg Tablet] 5 mg PO BID 08/14/20 Carvedilol [Coreg 12.5 mg Tablet] 12.5 mg PO Q12 08/14/20 Levothyroxine Sodium [Synthroid 0.15 mg Tablet] 150 mcg PO Q6AM 08/14/20 Omeprazole 20 mg PO DAILY 08/14/20 Acetaminophen [Tylenol 325 mg Tablet] 975 mg PO Q8 tablet 08/17/20 Furosemide [Lasix 40 mg Tablet] 40 mg PO DAILY #30 08/17/20 Mag Hydrox/Al Hydrox/Simeth [Maalox Plus Susp 30 Udcup] 30 ml PO Q6HP PRN udc 08/17/20 Melatonin [Melatonin 5 mg Tablet] 5 mg PO QHS tablet 08/17/20 Nystatin/Triamcin [Mycolog-II Cream 15 gm] 1 applic TP QID tube 08/17/20 History of Present Illiness History of Present Illness: Mrs. JASMIN CONWAY is a morbidly obese 80 year old female with PMH of CAD, chronic diastolic CHF, HTN, HLD, CHON not on CPAP, atrial fibrillation and chronic venous stasis of BLE c/b venous stasis ulcers who presents to the ED with CC of LLE oozing/pain. She notes that she was recently hospitalized at [facility] for the same thing; while there, she was treated with Vancomycin IV and then transitioned to doxycycline PO on discharge. At home, she has been fatigued, sleeping all day long, lacking energy, feeling weak. She denies fevers and reports that she is always cold, but this is not new. She has had no sick contacts. She does have CHON but does not wear a CPAP. She has not had any falls. Her BLE swelling is not any worse than baseline, but she feels that her LLE ulcerations are oozing more and feel more painful recently. Her only recent change in medications is that her Lasix dose was decreased from 80 mg BID to 40 mg BID about 2 weeks ago. She lives in a multi-generational home with her daughter, grand-daughter. She walks with a walker. She has lots of support at home. No trouble getting/taking medications. She is not followed by wound care currently, but had an appointment to be seen at the wound care clinic tomorrow to establish care. Physical Exam Vital Signs: Temp Pulse Resp BP Pulse Ox 97.5 F 48 L 22 H 99/48 L 100 08/19/20 03:24 08/19/20 03:24 08/19/20 03:24 08/19/20 03:24 08/19/20 03:24 Intake & Output 08/18/20 08/19/20 08/20/20 06:59 06:59 06:59 Intake Total 1792 560 Balance 1792 560 Weight 98.1 kg 102.5 kg Results Laboratory Results: WBC 9.8 10^3/uL (4.0-10.5) 08/17/20 06:35 RBC 3.04 10^6/uL (3.72-5.28) L 08/17/20 06:35 Hgb 10.1 g/dL (12.0-15.5) L 08/17/20 06:35 Hct 30.8 % (36.0-47.0) L 08/17/20 06:35 MCV 101 fl (80-97) H 08/17/20 06:35 MCH 33.0 pg (27.0-33.4) 08/17/20 06:35 MCHC 32.6 g/dL (32.0-36.0) 08/17/20 06:35 RDW 14.7 % (11.5-14.0) H 08/17/20 06:35 Plt Count 158 10^3/uL (150-450) 08/17/20 06:35 Lymph % (Auto) 23.7 % (13-45) 08/14/20 13:48 [place] % (Auto) 11.6 % (3-13) 08/14/20 13:48 Eos % (Auto) 0.9 % (0-6) 08/14/20 13:48 Baso % (Auto) 0.8 % (0-2) 08/14/20 13:48 Reticulocyte # 0.069 10^6/uL (0.028-0.122) 08/17/20 06:35 Absolute Neuts (auto) 5.7 10^3/uL (1.7-8.2) 08/14/20 13:48 Absolute Lymphs (auto) 2.2 10^3/uL (0.5-4.7) 08/14/20 13:48 Absolute Monos (auto) 1.1 10^3/uL (0.1-1.4) 08/14/20 13:48 Absolute Eos (auto) 0.1 10^3/uL (0.0-0.6) 08/14/20 13:48 Absolute Basos (auto) 0.1 10^3/uL (0.0-0.2) 08/14/20 13:48 Seg Neutrophils % 63.0 % (42-78) 08/14/20 13:48 Retic Count (auto) 2.25 % (0.66-2.85) 08/17/20 06:35 Sodium 143.5 mmol/L (137-145) 08/18/20 08:05 Potassium 4.1 mmol/L (3.6-5.0) 08/18/20 08:05 Chloride 113 mmol/L (98-107) H 08/18/20 08:05 Carbon Dioxide 23 mmol/L (22-30) 08/18/20 08:05 Anion Gap 8 (5-19) 08/18/20 08:05 BUN 63 mg/dL (7-20) H 08/18/20 08:05 Creatinine 1.75 mg/dL (0.52-1.25) H 08/18/20 08:05 Est GFR ( Amer) 34 (>60) L 08/18/20 08:05 Est GFR (MDRD) Non-Af 28 (>60) L 08/18/20 08:05 Glucose 115 mg/dL (75-110) H 08/18/20 08:05 POC Glucose 135 mg/dL (70-110) H 08/17/20 16:36 Hemoglobin A1c % 6.6 % (4.7-6.0) H 08/15/20 04:14 Lactic Acid 0.6 mmol/L (0.7-2.1) L 08/14/20 13:48 Calcium 8.5 mg/dL (8.4-10.2) 08/18/20 08:05 Magnesium 1.7 mg/dL (1.6-2.3) 08/18/20 08:05 Iron 18.9 ug/dL (37-170) L 08/17/20 06:35 TIBC 213 ug/dL (250-450) L 08/17/20 06:35 % Saturation 9 % 08/17/20 06:35 Ferritin 453.00 ng/mL (11.1-264.0) H 08/17/20 06:35 Total Bilirubin 0.5 mg/dL (0.2-1.3) 08/14/20 13:48 Direct Bilirubin 0.5 mg/dL (0.0-0.4) H 08/14/20 13:48 Neonat Total Bilirubin Not Reportable 08/14/20 13:48 Neonat Direct Bilirubin Not Reportable 08/14/20 13:48 Neonat Indirect Bili Not Reportable 08/14/20 13:48 AST 20 U/L (14-36) 08/14/20 13:48 ALT 9 U/L (<35) 08/14/20 13:48 Alkaline Phosphatase 107 U/L (38-126) 08/14/20 13:48 Total Protein 7.3 g/dL (6.3-8.2) 08/14/20 13:48 Albumin 3.7 g/dL (3.5-5.0) 08/14/20 13:48 Vitamin B12 619.0 pg/mL (239-931) 08/17/20 06:35 Folate 8.90 ng/mL (>2.76) 08/17/20 06:35 TSH 4.83 uIU/mL (0.47-4.68) H 08/15/20 04:14 Impressions: Chest X-Ray 08/14/20 00:00 IMPRESSION: No acute disease. copyright 2011 [employer]- All Rights Reserved Venous Doppler Study 08/14/20 13:26 IMPRESSION: NO EVIDENCE OF DVT OR SVT IN THE LEFT LEG. Ankle X-Ray 08/14/20 13:27 IMPRESSION: Circumferential soft tissue edema without findings to suggest underlying osteomyelitis. No acute injury. Renal Ultrasound 08/15/20 00:00 IMPRESSION: Very limited study. Small echogenic right kidney. The left kidney cannot be visualized. Stroke Is this a Stroke Patient?: No Acute Heart Failure Is this a Heart Failure Patient?: No
[2020-08-19] MEDS ORDERED: FUROSEMIDE 40 MG TABLET PO SCH (10:00)
[2020-08-19] MEDS: ALLOPURINOL 100 MG TABLET PO SCH (10:25)
[2020-08-19] MEDS: ISOSORBIDE MONONITRATE 60 MG TAB.ER.24H PO SCH (10:26)
[2020-08-19] MEDS: APIXABAN 2.5 MG TABLET PO SCH (10:26)
[2020-08-19] MEDS: CARVEDILOL 12.5 MG TABLET PO SCH (10:26)
[2020-08-19] MEDS: NYSTATIN/TRIAMCIN CREAM 15 GM TP SCH ×2 (10:27→13:53)
[2020-08-19 11:52] VITALS: BP 99/85
== END 2020-08-19 15:10 | DRG 683 ==
LOC: ER 12:44 → EH 17:38 → 4W 18:47 → 5 08-17 19:27
PROVIDERS: ADMIT Hospitalist; ATTEND Hospitalist
DX: N17.9 Acute kidney failure, unspecified (principal); L03.116 Cellulitis of left lower limb; I13.0 Hypertensive heart and chronic kidney disease with heart failure and stage 1 through stage 4 chronic kidney disease, or unspecified chronic kidney disease; I50.32 Chronic diastolic (congestive) heart failure; L97.321 Non-pressure chronic ulcer of left ankle limited to breakdown of skin; Z68.41 Body mass index [BMI] 40.0-44.9, adult; E87.5 Hyperkalemia; E11.22 Type 2 diabetes mellitus with diabetic chronic kidney disease; I48.91 Unspecified atrial fibrillation; I87.8 Other specified disorders of veins; I83.023 Varicose veins of left lower extremity with ulcer of ankle; N18.3 Chronic kidney disease, stage 3 (moderate); E83.42 Hypomagnesemia; K21.9 Gastro-esophageal reflux disease without esophagitis; D64.9 Anemia, unspecified; G47.33 Obstructive sleep apnea (adult) (pediatric); E66.01 Morbid (severe) obesity due to excess calories; Z66 Do not resuscitate
CPT/HCPCS: 36415; 71045; 76775; 80048; 80053; 82607; 82728; 82746; 82962; 83036; 83540; 83550; 83605; 83735; 84443; 85025; 85027; 85045; 87040; 93005; 93010; 93971; 94799; 99285; J0610; J0360; J0696; J1940; J2020; J2405; J3490; J7030; J7060

== ENCOUNTER → 2020-09-25 | Outpatient (CLI) | payer MEDICARE | LOC: SP 11:15 | PROVIDERS: ATTEND Nurse Practitioner Family | DX: L97.222 Non-pressure chronic ulcer of left calf with fat layer exposed (principal) | CPT/HCPCS: 93925 ==